=== PATIENT | female | born 1960 | race Two or more races ===

== ENCOUNTER 2024-04-24 08:49 | Outpatient (REF) | payer MEDICAID, SELFPAY ==
[2024-04-24 10:20] LABS: MANUAL DIFF FLAG NO
[2024-04-24 11:20] LABS: Basophils Absolute Auto 0.1 X10*3/uL (0.0-0.2); Basophils Percent Auto 0.8 % (0-2); Eosinophils Absolute Auto 1.2 X10*3/uL (0.0-0.4); Eosinophils Percent Auto 12.2 % (0-4); Hematocrit 42.5 % (37.0-47.0); Hemoglobin 13.8 g/dl (12.0-16.0); Imm Gran Abs Auto 0.02 X10*3/uL (0.00-0.03); Imm Gran Pct Auto 0.2 % (0.0-0.4); Lymphocytes Absolute Auto 3.2 X10*3/uL (1.2-4.9); Lymphocytes Percent Auto 32.2 % (20-40); Mean Corpuscular HGB Conc 32.5 g/dl (31.0-35.0); Mean Corpuscular Hemoglobin 29.9 pg (27.0-33.0); Mean Platelet Volume 11.7 fL (9.4-12.3); Monocytes Absolute Auto 0.9 X10*3/uL (0.1-1.2); Monocytes Percent Auto 9.6 % (2-11); Neutrophils Absolute Auto 4.4 x10*3/uL (2.0-8.3); Platelet Count 237 X10*3/uL (160-400); Red Blood Count 4.62 X10*6/uL (4.20-5.50); Red Cell Distribution Width 12.3 % (11.0-16.0); White Blood Count 9.8 X10*3/uL (4.8-10.8)
[2024-04-24 11:48] LABS: Alanine Aminotransferase 27 U/L (0-31); Aspartate Amino Transferase 21 U/L (5-31); Estimated Glomerular Filt Rate > 60
[2024-04-24 11:53] LABS: Erythrocyte Sedimentation Rate 6 MM/HR (0-20)
[2024-04-24 12:12] LABS: HBc Num1 0.34 S/CO (0.00-0.79); Hepatitis B Core Antibody Nonreactive (Nonreactive); Hepatitis B Surface Antigen Negative (Negative); ~HepC Num1 0.23 S/CO (0.00-0.79); ~Hepatitis B Surface Antibody NONREACTIVE (Nonreactive); ~Hepatitis C Antibody Nonreactive (Nonreactive)
[2024-04-26 16:23] LABS: Cyclic Citrullinated Peptide 180 UNITS
[2024-04-27 21:34] LABS: TS Negative Control Passed; TS Panel A 0; TS Panel B 0; TS Positive Control Passed; TSpotTB Negative (Negative)
== END 2024-04-24 08:50 | disposition home or self-care (01) ==
LOC: HO.LAB 08:49
PROVIDERS: PCP Student in an Organized Health Care Education/Training Program; Visit Provider Internal Medicine Rheumatology
DX: M06.9 Rheumatoid arthritis, unspecified (principal); Z79.60 Long term (current) use of unspecified immunomodulators and immunosuppressants; R06.9 Unspecified abnormalities of breathing; M79.7 Fibromyalgia
CPT/HCPCS: 36415; 82565; 84450; 84460; 85025; 85652; 86140; 86200; 86481; 86704; 86706; 86803; 87340; 99212

== ENCOUNTER 2024-04-24 08:49 | Outpatient (AMB) | payer MEDICAID, SELFPAY ==
[2024-04-24 08:56] VITALS: BP 150/80; PULSE 86; O2SAT 97; BMI 35.3
--- NOTE | 2024-04-24 08:56 | MHC.OFFVIS ---
Vital Signs 04/24/24 08:56 Height 5 ft 2 in Weight 193 lb 1.999 oz BMI 35.3 BP 150/80 H Blood Pressure Location Lt brachial Position Sitting Pulse 86 Pulse Source Pulse Oximeter Pulse Oximetry (%) 97 Oxygen Delivery Method Room Air Intake Visit Reasons: Athritis/CM APT Intake Note: Patient presents for follow up on rheumatoid arthritis in her whole body. Email Marketing Intern Services: Email Marketing Intern Offered & Declined Email Marketing Intern Name: Car Accompanied by: Grand Child Allergies IV contrast Allergy (Mild, Uncoded 04/24/24 09:02) acidosis HPI HPI Athritis/CM APT: Details: [place] speaking patient. Granddaughter present to interpret. Insomnia due to all over body pain. Hands and toes are getting stuck. She continues to take meloxicam 7.5 mg daily and gabapentin 100 mg t.i.d.. She has been on gabapentin for years without increased dose. She continues to take Humira every other week for rheumatoid arthritis. [facility] Medical History (Updated 04/24/24 @ 09:44 by Héctor Reina MD) Chronic GERD Legally blind Asthma Rheumatoid arthritis Surgical History (Updated 04/24/24 @ 09:07 by Betzy Herrera CMA) H/O knee surgery Family History (Updated 04/24/24 @ 09:08 by Betzy Herrera CMA) Mother Cardiovascular disease Father Pulmonary emphysema Social History (Updated 04/24/24 @ 09:09 by Betzy Herrera CMA) Alcohol intake: never Patient Tobacco Use Status: Never used Tobacco Review of Systems Const All systems reviewed & are unremarkable except as noted in HPI and below Physical Exam Vital Signs: Last Vital Signs Pulse 86 04/24/24 08:56 BP 150/80 H 04/24/24 08:56 Pulse Ox 97 04/24/24 08:56 Oxygen Delivery Method Room Air 04/24/24 08:56 BMI result Body Mass Index 35.3 Const Other: General: Comfortable CVS: RRR Respiratory: clear to auscultation bilaterally. Good respiratory effort Skin: No lesions seen MSK: Tender to palpate all small joints in hands and feet. No synovitis. She has diffuse allodynia of all her extremities. Assessment & Plan Assessment & Plan (1) Rheumatoid arthritis: Comment: On Humira. Pain from fibromyalgia is main contributor to her pain rather than inflammatory arthritis. I have asked her to contact PCP to up titrate gabapentin as she tolerates it. Code(s): M06.9 - Rheumatoid arthritis, unspecified Category: Medical Plan: Continue Humira 40 mg subcutaneous injection every other week Labs for disease and drug monitoring on high-risk medication ordered PCP follow-up for fibromyalgia management. Consider up titration of gabapentin as she tolerates. 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: Code(s): Z79.899 - Other vermin exterminator (current) drug therapy Category: Medical Plan: See above (3) Fibromyalgia: Code(s): M79.7 - Fibromyalgia Category: Medical Plan: See above Orders: Orders Complete Blood Count Auto Diff Today Z79.60 - [facility] (current) use of unspecified immunomodulators and immunosuppressants Erythrocyte Sedimentation Rate Today M06.9 - Rheumatoid arthritis, unspecified Hepatitis B,C Profile Today M06.9 - Rheumatoid arthritis, unspecified T Spot TB Today M06.9 - Rheumatoid arthritis, unspecified Alanine Aminotransferase Today Z79.60 - 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 continuity of treatment 2 ea 2RF Coding Level of Care Code Est Pt Level 4 (97160) Complex EM visit Add On G2211 Diagnoses Rheumatoid arthritis M06.9 Other alf (current) drug therapy Z79.899 Fibromyalgia M79.7
== END 2024-04-24 09:37 | disposition home or self-care (01) ==
PROVIDERS: PCP Student in an Organized Health Care Education/Training Program; Visit Provider Internal Medicine Rheumatology
DX: M06.9 Rheumatoid arthritis, unspecified (principal); Z79.899 Other long term (current) drug therapy; M79.7 Fibromyalgia
CPT/HCPCS: 99214

== ENCOUNTER 2024-05-30 08:41 | Outpatient (AMB) | payer MEDICAID, SELFPAY ==
[2024-05-30 08:50] VITALS: BP 148/80; PULSE 100; O2SAT 97; BMI 35.8
--- NOTE | 2024-05-30 08:50 | A.OFFVIS_ITS ---
Vital Signs 05/30/24 08:50 Height 5 ft 2 in Weight 196 lb BMI 35.8 BP 148/80 H Blood Pressure Location Lt brachial Position Sitting Pulse 100 Pulse Source Pulse Oximeter Pulse Oximetry (%) 97 Oxygen Delivery Method Room Air Intake Visit Reasons: Follow up 1mo Intake Note: Patient presents today for follow up on RA, She is requesting Meloxicam and Trazadone refills. Her hands and hips are bothering her today. Allergies IV contrast Allergy (Mild, Uncoded 05/30/24 08:54) acidosis HPI HPI Follow up 1mo: Details: She continues to have pain. PCP increase gabapentin to 200 mg 3 times a day. She feel sleepy during the day and naps. She does not sleep well at night. She watches TV until she falls asleep. PENDING SALE TO [facility] Medical History (Updated 05/30/24 @ 09:44 by Héctor Reina MD) Chronic GERD Legally blind Asthma Rheumatoid arthritis Surgical History (Updated 04/24/24 @ 09:07 by Betzy Herrera CMA) H/O knee surgery Family History (Updated 04/24/24 @ 09:08 by Betzy Herrera CMA) Mother Cardiovascular disease Father Pulmonary emphysema Social History (Updated 04/24/24 @ 09:09 by Betzy Herrera CMA) Alcohol intake: never Patient Tobacco Use Status: Never used Tobacco Review of Systems Const All systems reviewed & are unremarkable except as noted in HPI and below Physical Exam Vital Signs: Last Vital Signs Pulse 100 05/30/24 08:50 BP 148/80 H 05/30/24 08:50 Pulse Ox 97 05/30/24 08:50 Oxygen Delivery Method Room Air 05/30/24 08:50 BMI result Body Mass Index 35.8 Const Other: General: Comfortable CVS: RRR Respiratory: clear to auscultation bilaterally. Good respiratory effort Skin: No lesions seen MSK: Tender to palpate all small joints in hands and feet. No synovitis. She has diffuse allodynia of all her extremities. Results Reviewed Results Reviewed: Recent labs reviewed from 05/04/2024. Assessment & Plan Assessment & Plan (1) Rheumatoid arthritis: Comment: On Humira. She continues to have arthralgias and myalgias. Fibromyalgia is uncontrolled contributing to myalgia. Recent labs did not reveal elevated inflammatory markers but she continues to have diffuse arthralgias. I will increased frequency of Humira as she gets relief with pain after Humira inje ction for at least a week suggesting pain from inflammatory arthritis is responding but she does not have complete response lasting full 2 weeks before next injection is due. Code(s): M06.9 - Rheumatoid arthritis, unspecified Category: Medical Plan: Change Humira 40 mg subcutaneous injection every other week to weekly. I will request update to PA. PCP follow-up for fibromyalgia management. Consider up titration of gabapentin as she tolerates with consideration of increasing gabapentin to 300 mg twice a day. 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 Insomnia has contributing. Code(s): M79.7 - Fibromyalgia Category: Medical Plan: See above We discussed sleep hygiene. Recommended trying aquatic therapy PCP follow-up for further management of fibromyalgia Medications: New meloxicam Increase dose 15 mg PO DAILY 30 tabs 2RF Changed From adalimumab (Humira(CF) Pen) (0.4 mL) 40 mg subcutaneously; PA needed. continuity of treatment 2 ea 2RF To adalimumab (Humira(CF) Pen) (0.4 mL) 40 mg subcutaneously; PA needed for weekly dosing. Continuity of treatment 4 ea 2RF Coding Level of Care Code Est Pt Level 4 (13719) Complex EM visit Add On G2211 Diagnoses Rheumatoid arthritis M06.9 Other halfway (current) drug therapy Z79.899 Fibromyalgia M79.7
== END 2024-05-30 09:41 | disposition home or self-care (01) ==
PROVIDERS: PCP Student in an Organized Health Care Education/Training Program; Visit Provider Internal Medicine Rheumatology
DX: M06.9 Rheumatoid arthritis, unspecified (principal); Z79.899 Other long term (current) drug therapy; M79.7 Fibromyalgia
CPT/HCPCS: 99214

== ENCOUNTER → 2024-05-30 08:41 | Outpatient (BNVA) | payer MEDICAID, SELFPAY | PROVIDERS: PCP Student in an Organized Health Care Education/Training Program; Visit Provider Internal Medicine Rheumatology | DX: M06.9 Rheumatoid arthritis, unspecified (principal); M79.7 Fibromyalgia; Z79.899 Other long term (current) drug therapy | CPT/HCPCS: 99212 ==

== ENCOUNTER 2024-08-08 11:19 | Outpatient (REF) | payer MEDICAID, SELFPAY ==
[2024-08-08 11:45] LABS: MANUAL DIFF FLAG NO
[2024-08-08 12:07] LABS: Basophils Absolute Auto 0.1 X10*3/uL (0.0-0.2); Basophils Percent Auto 0.9 % (0-2); Eosinophils Absolute Auto 1.5 X10*3/uL (0.0-0.4); Hemoglobin 13.9 g/dl (12.0-16.0); Imm Gran Abs Auto 0.04 X10*3/uL (0.00-0.03); Imm Gran Pct Auto 0.4 % (0.0-0.4); Lymphocytes Absolute Auto 3.4 X10*3/uL (1.2-4.9); Lymphocytes Percent Auto 35.6 % (20-40); Mean Corpuscular HGB Conc 32.3 g/dl (31.0-35.0); Mean Corpuscular Hemoglobin 29.5 pg (27.0-33.0); Mean Corpuscular Volume 91.3 fL (80.0-98.0); Mean Platelet Volume 11.8 fL (9.4-12.3); Monocytes Absolute Auto 0.9 X10*3/uL (0.1-1.2); Monocytes Percent Auto 9.2 % (2-11); Neutrophils Absolute Auto 3.6 x10*3/uL (2.0-8.3); Neutrophils Percent Auto 37.9 % (45-73); Platelet Count 237 X10*3/uL (160-400); Red Blood Count 4.71 X10*6/uL (4.20-5.50); Red Cell Distribution Width 12.4 % (11.0-16.0); White Blood Count 9.4 X10*3/uL (4.8-10.8)
[2024-08-08 12:29] LABS: Alanine Aminotransferase 33 U/L (0-31); Aspartate Amino Transferase 30 U/L (5-31); Estimated Glomerular Filt Rate > 60
[2024-08-08 12:44] LABS: Erythrocyte Sedimentation Rate 7 MM/HR (0-20)
[2024-08-09 16:38] LABS: CRP High Sensitivity 3.3 mg/L
== END 2024-08-08 11:20 | disposition home or self-care (01) ==
LOC: HO.LAB 11:19
PROVIDERS: PCP Student in an Organized Health Care Education/Training Program; Visit Provider Internal Medicine Rheumatology
DX: M06.9 Rheumatoid arthritis, unspecified (principal)
CPT/HCPCS: 36415; 82565; 84450; 84460; 85025; 85652; 86141

== ENCOUNTER 2024-08-23 13:07 | Outpatient (AMB) | payer MEDICAID, SELFPAY ==
--- NOTE | 2024-08-23 13:15 | A.OFFVIS_ITS ---
Vital Signs 08/23/24 13:19 Height 5 ft 2 in Weight 193 lb 9.054 oz BMI 35.4 BP 140/70 H Blood Pressure Location Rt brachial Position Sitting Pulse 74 Pulse Source Pulse Oximeter Pulse Oximetry (%) 99 Oxygen Delivery Method Room Air Intake Visit Reasons: 3 mnts f/u Intake Note: Patient presents today for follow up on RA. Accompanied by: Son Allergies IV contrast Allergy (Mild, Uncoded 05/30/24 08:54) acidosis HPI HPI 3 mnts f/u: Details: Son interprets. Italian speaking patient. She did not start humira weekly. She is still taking it every other week. She has been out of prescription for a week. She is now on medicare and requires a new PA. She has good days and bad days. She has hand and foot pain. Gabapentin dose increased by PCP without change in pain. She went to hospital recently for back pain. SHe has home PT for back strengthening. ON LICENSE OF [facility] Medical History Chronic GERD Legally blind Asthma Rheumatoid arthritis Surgical History (Updated 04/24/24 @ 09:07 by Betzy Herrera CMA) H/O knee surgery Family History (Updated 04/24/24 @ 09:08 by Betzy Herrera CMA) Mother Cardiovascular disease Father Pulmonary emphysema Social History (Updated 04/24/24 @ 09:09 by Betzy Herrera CMA) Alcohol intake: never Patient Tobacco Use Status: Never used Tobacco Review of Systems Const All systems reviewed & are unremarkable except as noted in HPI and below Physical Exam Vital Signs: Last Vital Signs Pulse 74 08/23/24 13:19 BP 140/70 H 08/23/24 13:19 Pulse Ox 99 08/23/24 13:19 Oxygen Delivery Method Room Air 08/23/24 13:19 BMI result Body Mass Index 35.4 Const Other: General: Comfortable CVS: RRR Respiratory: clear to auscultation bilaterally. Good respiratory effort Skin: No lesions seen MSK: Right wrist synovitis present. Tender right wrists. Tender to palpate all small joints in hands and feet. Shoulder abduction is 160 degrees bilateral with normal internal rotation but limited full external rotation. Normal range of motion of lower extremities. She has diffuse allodynia of all her extremities. Assessment & Plan Assessment & Plan (1) Rheumatoid arthritis: Comment: Uncontrolled inflammatory arthritis on Humira every other week. Fibromyalgia is also uncontrolled contributing to myalgias. Recent labs reveal mild transaminitis. Rheumatology history: +CPP >250, rheumatoid factor. Erosive inflammatory arthritis involving left foot 1st distal phalanx. MTX 11/2020-02/2022 patient discontinued due to hair loss. Partial response to sulfasalazine and hydroxychloroquine 04/2022. On Humira 2020- Code(s): M06.9 - Rheumatoid arthritis, unspecified Category: Medical Plan: Change Humira 40 mg subcutaneous injection every other week to weekly. Prednisone course prescribed Avoid alcohol and Tylenol. I will be checking labs at follow up appointment PCP follow-up for fibromyalgia management. Consider up titration of gabapentin as she tolerates. 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 Code(s): M79.7 - Fibromyalgia Category: Medical Plan: See above PCP follow-up for further management of fibromyalgia (4) Transaminitis: Code(s): R74.01 - Elevation of levels of liver transaminase levels Category: Medical Plan: See above Medications: New prednisone Take 4 tablets daily 5 days, 3 tablets daily 5 days, 2 tablets daily 5 days, 1 tablet daily 5 days then stop. Take prednisone with food. 5 mg PO DIRECTED 50 tabs 0RF Coding Level of Care Code Est Pt Level 4 (22566) Complex EM visit Add On G2211 Diagnoses Rheumatoid arthritis M06.9 Other nursing home (current) drug therapy Z79.899 Fibromyalgia M79.7 Transaminitis R74.01
[2024-08-23 13:19] VITALS: BP 140/70; PULSE 74; O2SAT 99; BMI 35.4
--- OUTSIDE RECORDS SUMMARY | 2024-08-23 15:50 | XMS_ITS | Clinical Summary ---
Author Organization Unknown Care Team Providers [facility] Locker Room Attendant Name Role Phone BERNARDA ANNE Unavailable Unavailable SHEKHAR RN, ADMISSION NURSE, ASHLI Unavail able Unavailable YANNICK ([facility]) C - PT, IRENA Unavailable Unavailable TSERING RN, NATTY Unavailable Unavailable Payers Payer Name Policy Type Policy Number Effective Date Expira tion Date MEDICARE - [facility]/MS - PD [id number] Problems Condition Name Condition Details Condition Category Status Onset Date Resolution Date Last Treatment Date Treating Clinician Comments SPONDYLOSIS W/O MYELOPATHY OR RADICULOPATH Y, LUMBAR REGION Active 05-16 00:00: 00 RHEUMATOID ARTHRITIS, UNSPECIFIED Active 05-16 00:00: 00 CHRONIC PAIN SYNDROME Active 05-16 00:00: 00 UNSPECIFIED ASTHMA, UNCOMPLICATE D Active 05-16 00:00: 00 ESSENTIAL (PRIMARY) HYPERTENSION Active 05-16 00:00: 00 FIBROMYALGIA Active 05-16 00:00: 00 HYPERLIPIDEM IA, UNSPECIFIED Active 05-16 00:00: 00 UNSPECIFIED OSTEOARTHRIT IS, UNSPECIFIED SITE Active 05-16 00:00: 00 [facility] (CURRENT) USE OF NON-STEROIDA L NON-INFLAM (NSAID) Active 05-16 00:00: 00 [facility] (CURRENT) USE OF OPIATE ANALGESIC Active 05-16 00:00: 00 PERSONAL HISTORY OF NICOTINE DEPENDENCE Active 05-16 00:00: 00 Allergies, Adverse Reactions, Alerts Allergy Name Allergy Type Status Severity Reaction(s) Onset Date Inactive Date Treating Clinician Comments IODINE CONTRAST DYE Propensity to adverse reactions Active 2024-07 14:28:2 8 Medications Ordered Medication Name Filled Medication Name Start Date Stop Date Current Medication? Ordering Clinician Indication Dosage Frequency Signature (SIG) Comments Components gabapentin 400 mg capsule - 00:00: 00 07-16 00:00 :00 No [id number] Per instruc tions Per instructio ns (route: oral) Med Classific ation: Central Nervous System Agents oxycodone 5 mg tablet - 00:00: 00 07-16 00:00 :00 No [id number] Per instruc tions Per instructio ns (route: oral) Med Classific ation: Analgesic , Anti-infl ammatory or Antipyret ic gabapentin 100 mg capsule 07-04 00:00: 00 07-16 00:00 :00 No [id number] Per instruc tions Per instructio ns (route: oral) Med Classific ation: Central Nervous System Agents lisinopril 20 mg tablet 07-04 00:00: 00 07-16 00:00 :00 No [id number] Per instruc tions Per instructio ns (route: oral) Med Classific ation: Cardiovas cular Therapy Agents meloxicam 15 mg tablet 07-04 00:00: 00 07-16 00:00 :00 No [id number] Per instruc tions Per instructio ns (route: oral) Med Classific ation: Analgesic , Anti-infl ammatory or Antipyret ic omeprazole 20 mg capsule,del ayed release 07-04 00:00: 00 07-16 00:00 :00 No [id number] Per instruc tions Per instructio ns (route: oral) Med Classific ation: Gastroint estinal Therapy Agents simvastatin 5 mg tablet 07-04 00:00: 00 07-16 00:00 :00 No [id number] Per instruc tions Per instructio ns (route: oral) Med Classific ation: Cardiovas cular Therapy Agents Ventolin HFA 90 mcg/actuati on aerosol inhaler 07-04 00:00: 00 07-16 00:00 :00 No [id number] Per instruc tions Per instructio ns (route: inhalation ) Med Classific ation: Respirato ry Therapy Agents fluticasone propionate 50 mcg/actuati on nasal spray,suspe nsion 2- 00:00: 00 Yes [id number] Per instruc tions O2 - PRN Per instructio ns O2 - PRN (route: nasal) Med Classific ation: Respirato ry Therapy Agents Humira(CF) Pen 40 mg/0.4 mL subcutaneou s kit 2- 00:00: 00 07-16 00:00 :00 No [id number] Per instruc tions Per instructio ns (route: subcutaneo us) Med Classific ation: Analgesic , Anti-infl ammatory or Antipyret ic acetaminoph en 500 mg tablet 07-16 00:00: 00 Yes [id number] for mild-mod pain 2 tablet EVERY 8 HOURS 2 tablet EVERY 8 HOURS (route: oral) Med Classific ation: Analgesic , Anti-infl ammatory or Antipyret ic albuterol sulfate HFA 90 mcg/actuati on aerosol inhaler 07-16 00:00: 00 Yes [id number] for SOB 2 puff EVERY 4 HOURS 2 puff EVERY 4 HOURS (route: inhalation ) Med Classific ation: Respirato ry Therapy Agents gabapentin 400 mg capsule 07-16 00:00: 00 Yes [id number] 1 capsule 3 TIMES DAILY 1 capsule 3 TIMES DAILY (route: oral) Med Classific ation: Central Nervous System Agents Humira(CF) Pen 40 mg/0.4 mL subcutaneou s kit 07-16 00:00: 00 Yes [id number] 40 mg EVERY OTHER WEEK 40 mg EVERY OTHER WEEK (route: subcutaneo us) Med Classific ation: Analgesic , Anti-infl ammatory or Antipyret ic Lidocaine Plus 4 % topical cream 07-16 00:00: 00 Yes [id number] Per instruc tions O2 - PRN Per instructio ns O2 - PRN (route: topical) Med Classific ation: Dermatolo gical lisinopril 20 mg tablet - 00:00: 00 Yes [id number] 1 tablet DAILY 1 tablet DAILY (route: oral) Med Classific ation: Cardiovas cular Therapy Agents meloxicam 15 mg tablet 07-16 00:00: 00 Yes [id number] 1 tablet DAILY 1 tablet DAILY (route: oral) Med Classific ation: Analgesic , Anti-infl ammatory or Antipyret ic Narcan 4 mg/actuatio n nasal spray 07-16 00:00: 00 Yes [id number] Per instruc tions O2 - PRN Per instructio ns O2 - PRN (route: nasal) Med Classific ation: Antidotes and other Reversal Agents omeprazole 20 mg capsule,del ayed release 07-16 00:00: 00 Yes [id number] 1 capsule DAILY 1 capsule DAILY (route: oral) Med Classific ation: Gastroint estinal Therapy Agents oxycodone 5 mg tablet 07-16 00:00: 00 Yes [id number] 1 tablet EVERY 6 HOURS 1 tablet EVERY 6 HOURS (route: oral) Med Classific ation: Analgesic , Anti-infl ammatory or Antipyret ic Senna Plus 8.6 mg-50 mg capsule 07-16 00:00: 00 Yes [id number] 2 capsule BEDTIME 2 capsule BEDTIME (route: oral) Med Classific ation: Gastroint estinal Therapy Agents simvastatin 5 mg tablet 07-16 00:00: 00 Yes [id number] 1 tablet BEDTIME 1 tablet BEDTIME (route: oral) Med Classific ation: Cardiovas cular Therapy Agents Immunizations Ordered Immunization Name Filled Immunization Name Date Status Comments Refusal Reason INFLUENZA, TIV (INACTIVATED) 2024-02-15 00:00:00 Vital Signs Vital Name Observation Time Observation Value Commen ts Temperature 2024-08-22 14:23:00.000 97.6 [degF] Temperature 2024-08-15 11:38:00.000 98.4 [degF] Temperature 2024-08-14 13:55:00.000 98.1 [degF] Temperature 2024-08-07 15:21:00.000 97.4 [degF] Temperature 2024-08-06 10:53:00.000 99.9 [degF] Temperature 2024-08-02 14:51:00.000 97.4 [degF] Temperature 2024-07-30 15:59:00.000 97.7 [degF] Temperature 2024-07-26 12:46:00.000 97.6 [degF] Temperature 2024-07-24 15:06:00.000 97.9 [degF] Temperature 2024-07-20 11:11:00.000 98.2 [degF] Temperature 2024-07-16 14:29:00.000 98 [degF] BMI (%) 2024-07-16 14:29:00.000 34 kg/m2 Height 2024-07-16 14:29:00.000 62 [in_us] Pulse 2024-08-22 14:23:00.000 78 /min Pulse 2024-08-15 11:38:00.000 72 /min Pulse 2024-08-07 15:21:00.000 72 /min Pulse 2024-08-06 10:53:00.000 75 /min Pulse 2024-08-02 14:51:00.000 82 /min Pulse 2024-07-30 15:59:00.000 72 /min Pulse 2024-07-26 12:46:00.000 65 /min Pulse 2024-07-24 15:06:00.000 66 /min Pulse 2024-07-20 11:11:00.000 72 /min Pulse 2024-07-16 14:29:00.000 76 /min O2 Saturation (%) 2024-08-15 11:38:00.000 96 % O2 Saturation (%) 2024-08-14 13:55:00.000 98 % O2 Saturation (%) 2024-08-07 15:21:00.000 99 % O2 Saturation (%) 2024-08-06 10:53:00.000 98 % O2 Saturation (%) 2024-08-02 14:51:00.000 96 % O2 Saturation (%) 2024-07-30 15:59:00.000 97 % O2 Saturation (%) 2024-07-26 12:46:00.000 98 % O2 Saturation (%) 2024-07-24 15:06:00.000 98 % O2 Saturation (%) 2024-07-16 14:29:00.000 95 % Respirations 2024-08-22 14:23:00.000 14 /min Respirations 2024-08-15 11:38:00.000 18 /min Respirations 2024-08-14 13:55:00.000 18 /min Respirations 2024-08-07 15:21:00.000 18 /min Respirations 2024-08-06 10:53:00.000 12 /min Respirations 2024-08-02 14:51:00.000 16 /min Respirations 2024-07-30 15:59:00.000 18 /min Respirations 2024-07-26 12:46:00.000 18 /min Respirations 2024-07-24 15:06:00.000 18 /min Respirations 2024-07-20 11:11:00.000 18 /min Respirations 2024-07-16 14:29:00.000 18 /min Weight (lbs) 2024-07-16 14:29:00.000 190 [lb_av] Systolic Blood Pressure 2024-08-22 14:23:00.000 140 mm [Hg] Systolic Blood Pressure 2024-08-15 11:38:00.000 140 mm [Hg] Systolic Blood Pressure 2024-08-14 13:55:00.000 124 mm [Hg] Systolic Blood Pressure 2024-08-07 15:21:00.000 148 mm [Hg] Systolic Blood Pressure 2024-08-06 10:53:00.000 169 mm [Hg] Systolic Blood Pressure 2024-08-02 14:51:00.000 124 mm [Hg] Systolic Blood Pressure 2024-07-30 15:59:00.000 110 mm [Hg] Systolic Blood Pressure 2024-07-26 12:46:00.000 140 mm [Hg] Systolic Blood Pressure 2024-07-24 15:06:00.000 146 mm [Hg] Systolic Blood Pressure 2024-07-20 11:11:00.000 146 mm [Hg] Systolic Blood Pressure 2024-07-16 14:29:00.000 148 mm [Hg] Diastolic Blood Pressure 2024-08-22 14:23:00.000 82 mm [Hg] Diastolic Blood Pressure 2024-08-15 11:38:00.000 80 mm [Hg] Diastolic Blood Pressure 2024-08-14 13:55:00.000 64 mm [Hg] Diastolic Blood Pressure 2024-08-07 15:21:00.000 70 mm [Hg] Diastolic Blood Pressure 2024-08-06 10:53:00.000 91 mm [Hg] Diastolic Blood Pressure 2024-08-02 14:51:00.000 76 mm [Hg] Diastolic Blood Pressure 2024-07-30 15:59:00.000 72 mm [Hg] Diastolic Blood Pressure 2024-07-26 12:46:00.000 68 mm [Hg] Diastolic Blood Pressure 2024-07-24 15:06:00.000 70 mm [Hg] Diastolic Blood Pressure 2024-07-20 11:11:00.000 76 mm [Hg] Diastolic Blood Pressure 2024-07-16 14:29:00.000 82 mm [Hg] Plan of Treatment Planned Activity Planned Date Details Comments Future Scheduled Test SKILLED NU RSE TO EVALUATE PATIENT, IDENTIFY PRIMARY AND CO-MORBID CONDITIONS CODED PER CODING GUIDELINES, AND DEVELOP PATIENT SPECIFIC PLAN OF CARE THAT INCLUDES PATIENT GOAL FOR HOME HEALTH. [code = SKILLED NURSE TO EVALUATE PATIENT, IDENTIFY PRIMARY AND CO-MORBID CONDITIONS CODED PER CODING GUIDELINES, AND DEVELOP PATIENT SPECIFIC PLAN OF CARE THAT INCLUDES PATIENT GOAL FOR HOME HEALTH.] Future Scheduled Test SKILLED NU RSE TO REVIEW PATIENT MEDICATIONS. INSTRUCT PATIENT/CAREGIVER ON MONITORING OF EFFECTIVENESS, ADVERSE DRUG REACTIONS, SIDE EFFECTS OF ALL MEDICATIONS (PRESCRIPTION/-OTC), AND HOW AND WHEN TO REPORT PROBLEMS. [code = SKILLED NURSE TO REVIEW PATIENT MEDICATIONS. INSTRUCT PATIENT/CAREGIVER ON MONITORING OF EFFECTIVENESS, ADVERSE DRUG REACTIONS, SIDE EFFECTS OF ALL MEDICATIONS (PRESCRIPTION/-OTC), AND HOW AND WHEN TO REPORT PROBLEMS.] Future Scheduled Test SKILLED NU RSE FOR O/A OF RESPIRATORY SYSTEM TO IDENTIFY CHANGES ASSOCIATED WITH EXACERBATION AND TO PROVIDE SKILLED TEACHING ON MANAGEMENT OF ASTHMA RESPIRATORY DISEASE PROCESS. [code = SKILLED NURSE FOR O/A OF RESPIRATORY SYSTEM TO IDENTIFY CHANGES ASSOCIATED WITH EXACERBATION AND TO PROVIDE SKILLED TEACHING ON MANAGEMENT OF ASTHMA RESPIRATORY DISEASE PROCESS.] Future Scheduled Test SKILLED NU RSE FOR O/A OF MUSCULOSKELETAL STATUS AND TEACHING ON MEASURES TO MANAGE LUMBAR SPINE OA AND TO MAINTAIN SAFETY WITH ACTIVITY [code = SKILLED NURSE FOR O/A OF MUSCULOSKELETAL STATUS AND TEACHING ON MEASURES TO MANAGE LUMBAR SPINE OA AND TO MAINTAIN SAFETY WITH ACTIVITY] Future Scheduled Test SKILLED NU RSE FOR O/A TO IDENTIFY CHANGES ASSOCIATED WITH PARAPLEGIA, RLE WEAKNESS, FIBROMIALGIA AND PROVIDE INSTRUCTION RELATED TO SAFETY MEASURES TO PREVENT INJURY SECONDARY TO IMPAIRED NEUROLOGICAL STATUS. SKILLED NURSE TO REPORT SIGNIFICANT CHANGES OF NEUROLOGIC STATUS TO PHYSICIAN FOR EARLY INTERVENTION. [code = SKILLED NURSE FOR O/A TO IDENTIFY CHANGES ASSOCIATED WITH PARAPLEGIA, RLE WEAKNESS, FIBROMIALGIA AND PROVIDE INSTRUCTION RELATED TO SAFETY MEASURES TO PREVENT INJURY SECONDARY TO IMPAIRED NEUROLOGICAL STATUS. SKILLED NURSE TO REPORT SIGNIFICANT CHANGES OF NEUROLOGIC STATUS TO PHYSICIAN FOR EARLY INTERVENTION.] Future Scheduled Test PHYSICAL T HERAPIST TO EVALUATE PATIENT FOR MUSCLE STRENGTHENING [code = PHYSICAL THERAPIST TO EVALUATE PATIENT FOR MUSCLE STRENGTHENING ] Future Scheduled Test SKILLED NU RSE TO PROVIDE TEACHING ON SIGNS AND SYMPTOMS AND MANAGEMENT OF HYPERTENSION. [code = SKILLED NURSE TO PROVIDE TEACHING ON SIGNS AND SYMPTOMS AND MANAGEMENT OF HYPERTENSION.] Future Scheduled Test SKILLED NU RSE FOR O/A AND SKILLED TEACHING RELATED TO SIGNS AND SYMPTOMS AND MANAGEMENT OF ARTHRITIS [code = SKILLED NURSE FOR O/A AND SKILLED TEACHING RELATED TO SIGNS AND SYMPTOMS AND MANAGEMENT OF ARTHRITIS ] Future Scheduled Test SKILLED NU RSE FOR O/A AND SKILLED TEACHING RELATED TO SIGNS AND SYMPTOMS AND MANAGEMENT OF RA. [code = SKILLED NURSE FOR O/A AND SKILLED TEACHING RELATED TO SIGNS AND SYMPTOMS AND MANAGEMENT OF RA.] Future Scheduled Test PATIENT VAZQUEZ S A RISK OF HOSPITALIZATION AND ED USE. SKILLED NURSE TO ESTABLISH SUPPORT MEASURES TO MINIMIZE RISK OF HOSPITALIZATION AND ED USE, AND INSTRUCT PATIENT/CAREGIVER ON METHODS TO REDUCE AVOIDABLE HOSPITALIZATION AND ED USE. [code = PATIENT HAS A RISK OF HOSPITALIZATION AND ED USE. SKILLED NURSE TO ESTABLISH SUPPORT MEASURES TO MINIMIZE RISK OF HOSPITALIZATION AND ED USE, AND INSTRUCT PATIENT/CAREGIVER ON METHODS TO REDUCE AVOIDABLE HOSPITALIZATION AND ED USE.] Future Scheduled Test SKILLED NU RSE TO PROVIDE INSTRUCTION TO PATIENT/CAREGIVER RELATED TO DISCHARGE PLANNING. [code = SKILLED NURSE TO PROVIDE INSTRUCTION TO PATIENT/CAREGIVER RELATED TO DISCHARGE PLANNING.] Future Scheduled Test SKILLED NU RSE TO PERFORM ENVIRONMENTAL SAFETY RISK ASSESSMENT AND FALL RISK ASSESSMENT AND PROVIDE INSTRUCTION TO IMPLEMENT ENVIRONMENTAL SAFETY AND FALL PREVENTION STRATEGIES THROUGHOUT THE CERTIFICATION PERIOD. SKILLED NURSE WILL MAINTAIN SITUATIONAL AWARENESS AND WILL NOTIFY CLINICAL MANAGEMENT NURSE RN AND PHYSICIAN/PROVIDER WITH ANY CHANGE IN CONDITION. [code = SKILLED NURSE TO PERFORM ENVIRONMENTAL SAFETY RISK ASSESSMENT AND FALL RISK ASSESSMENT AND PROVIDE INSTRUCTION TO IMPLEMENT ENVIRONMENTAL SAFETY AND FALL PREVENTION STRATEGIES THROUGHOUT THE CERTIFICATION PERIOD. SKILLED NURSE WILL MAINTAIN SITUATIONAL AWARENESS AND WILL NOTIFY CLINICAL MANAGEMENT NURSE RN AND PHYSICIAN/PROVIDER WITH ANY CHANGE IN CONDITION.] Future Scheduled Test SKILLED NU RSE FOR OBSERVATION AND ASSESSMENT OF PATIENTS PAIN LEVEL AND EFFECTIVENESS OF PAIN MANAGEMENT REGIMEN. SKILLED NURSE TO INSTRUCT PATIENT/CAREGIVER REGARDING PHARMACOLOGIC AND NON-PHARMACOLOGIC PAIN CONTROL MEASURES. SKILLED NURSE TO REPORT TO PHYSICIAN IF PAIN IS UNCONTROLLED WITH CURRENT PAIN MANAGEMENT REGIMEN. [code = SKILLED NURSE FOR OBSERVATION AND ASSESSMENT OF PATIENTS PAIN LEVEL AND EFFECTIVENESS OF PAIN MANAGEMENT REGIMEN. SKILLED NURSE TO INSTRUCT PATIENT/CAREGIVER REGARDING PHARMACOLOGIC AND NON-PHARMACOLOGIC PAIN CONTROL MEASURES. SKILLED NURSE TO REPORT TO PHYSICIAN IF PAIN IS UNCONTROLLED WITH CURRENT PAIN MANAGEMENT REGIMEN.] Future Scheduled Test SKILLED NU RSE TO ASSESS PATIENT'S SKIN INTEGRITY AND INSTRUCT PATIENT/CAREGIVER ON MEASURES TO PREVENT PRESSURE ULCERS. [code = SKILLED NURSE TO ASSESS PATIENT'S SKIN INTEGRITY AND INSTRUCT PATIENT/CAREGIVER ON MEASURES TO PREVENT PRESSURE ULCERS.] Future Scheduled Test PHYSICAL T HERAPIST TO EVALUATE PATIENT SECONDARY TO FUNCTIONAL DEFICITS/SAFETY CONCERNS. THIS 64-YEAR-OLD FEMALE IS REFERRED TO PT DUE TO SEVERE LBP AND DECREASED MOBILITY. PATIENT WITH RECENT HOSP STAY DUE TO INTRACTABLE LBP TUESDAY AFTERNOON 07/07 AND D/C'D HOME 07/08. ALL FILMS NEGATIVE FOR ANY ACUTE CHANGES IN SPINE- BELIEVED TO BE FLARE UP OF FIBROMYALGIA. WHEN I WENT, PAIN WAS LIKE A 20 OUT OF 10. NOW 6/10 ACROSS LOW BACK. PATIENT LYING INCLINED ON BED. PATIENT GIVEN OXYCODONE FOR PAIN (HAS USED IN PAST) FOR 5 DAYS. I FEEL BETTER BUT NOT GOOD. SINCE HOME, NO FALLS, NO CHANGE IN MEDS/MED INS. PATIENT MEDICAL HISTORY SIGNIFICANT FOR: ASTHMA, HYPERLIPIDEMIA, LUMBAR SPINE OA, CHRONIC PAIN SYNDROME, FIBROMYALGIA (PER PATIENT, DIAGNOSED 3 MONTHS AGO), RA, SLEEP APNEA, LEGALLY BLIND BOTH EYES- SEES SHADOWS, H/O LEFT KNEE MENISCAL SURGERY. PATIENT LIVES IN 1 BEDROOM APT WITH SIGN OTHER WHO IS PATIENT'S PANTRY WORKER AND SMALL DOG WITH ENTRY STEPS AND RAILING TO SIDEWALK LEVEL. PATGIENT A+OX4 AND IS CONTINENT OF BOWEL AND BLADDER. LYING/SITTING/WALKING TOO LONG INCREASES LBP. MOVING LEGS WORSENS PAIN. MEDICINE DOES NOT HELP MUCH. STAYS MOST OF DAY IN BED SINCE HOME. PRIOR TO HOSP, THINGS WERE DIFFICULT BUT MOVED MORE AND ADLS MUCH EASIER. PATIENT HAS A LOT OF SUPPORTIVE FAMILY LIVING NEAR BY. PATIENT STANDS 5'2 AND WEIGHS 193LB. VITALS TODAY: TEMP- 98.2, L RAD PULSE- 72 REG, RESP RATE- 18, L BRACH BP- 146/76. CURRENTLY GETTING HELP FOR DRESSING AND ADLS AND LIMITED FUNCTIONAL MOBILITY DUE TO PAIN. SLEEP AFFECTED AND CONTINUES TO USE CPAP MACHINE. PATIENT WITH C/O INCREASED SHARP PAIN INCLINE TO B/S SITTING AND HIGH LEVEL OF MATTRESS SO UNABLE TO SIT B/S. PATIENT UNABLE TO TOLERATE MANUAL MUSCLE TESTING OF HIPS/LE'S BUT OBSERVED TODAY TO BE ABLE TO SUPPORT WT. STANDING AND WALKING. PATIENT INSTRUCTED IN FINDING 'LUMBAR NEUTRAL' PATIENT WITH INCREASED LUMBAR LORDOSIS AND POOR CORE CONTROL. REPOSITIONING OUT OF END RANGE LORDOSIS MORE COMFORTABLE AT LB. AMB IN BEDROOM REACHING FOR FURNITURE AND DECREASED TOLERANCE TO STANDING TODAY. PATIENT ASSISTED TO RETURN TO BED AND SHOWN TO GET IN/OUT OF BED FROM HOOKLYING POSITION TO DECREASE STRAIN ON LB. ALSO SHOWN SMALL RANGE PELVIC TILTS TO MOVE OUT OF LORDOTIC POSITION. PATIENT PILLOWS REARRANGED TO CREATE WEDGE FOR IMPROVED TRUNK/LUMB POSITION AND PATIENT MORE COMF AND PILLOW UNDER KNEES TO DECREASE LORDOTIC POSITIONING. PATIENT INSTRUCTED TO INCREASE TIME OUT OF BED AND AMB SHORT DISTANCES EVERY HOUR. PATIENT RECEPTIVE TO PT INSTRUCTION. PATIENT WILL BENEFIT FROM SKILLED PT INTERVENTION 1-2X/WK FOR TRAINING IN GAIT, TRANSFERS, STAIR MGT, BALANCE, FUNCTIONAL STRENGTHENING/ENDURANCE, PAIN MGT, ROM, EDUCATION AND HEP. PATIENT IN AGREEMENT WITH PT POC. OFFICE OF BERNARDA RIVAS NP NOTIFIED OF PT EVALUATION AND POC. PHYSICAL THERAPY TO ESTABLISH /UPGRADE/DOWNGRADE THERAPEUTIC EXERCISE PROGRAM AND INSTRUCT PATIENT/CAREGIVER ON EXERCISE PRECAUTIONS WITH WRITTEN HOME PROGRAM. MAY INCLUDE AROM, RROM APPROPRIATE TO IMPROVE FUNCTIONAL STRENGTH AND RANGE OF MOTION. PHYSICAL THERAPY TO INSTRUCT PATIENT/CAREGIVER ON BED MOBILITY TECHNIQUES TO IMPROVE PATIENT MOBILITY AND POSITIONING TECHNIQUES IN ORDER TO INCREASE PATIENTS COMFORT AND DECREASE RISK OF SKIN BREAKDOWN. PHYSICAL THERAPY TO INSTRUCT PATIENT/CAREGIVER ON SAFE TRANSFER TECHNIQUES USING PROPER BODY MECHANICS AND EQUIPMENT. PHYSICAL THERAPY TO INSTRUCT PATIENT/CAREGIVER ON GAIT TRAINING TECHNIQUES USING APPROPRIATE ASSISTIVE DEVICE, PROPER BODY MECHANICS TO IMPROVE MOBILITY, AND PREVENT INJURY OF PATIENT AND/OR CAREGIVER. PHYSICAL THERAPY TO ASSESS AND RECOMMEND HOME SAFETY ADAPTATIONS AND EDUCATE PATIENT /CAREGIVER ON FALL PREVENTION STRATEGIES. PHYSICAL THERAPY FOR OBSERVATION AND ASSESSMENT OF PAIN, EFFECTIVENESS OF PAIN MANAGEMENT REGIMEN AND SKILLED TEACHING RELATED TO PAIN MANAGEMENT. THERAPIST TO REPORT INCREASED PAIN LEVEL TO PHYSICIAN FOR PROMPT INTERVENTION. [code = PHYSICAL THERAPIST TO EVALUATE PATIENT SECONDARY TO FUNCTIONAL DEFICITS/SAFETY CONCERNS. THIS 64-YEAR-OLD FEMALE IS REFERRED TO PT DUE TO SEVERE LBP AND DECREASED MOBILITY. PATIENT WITH RECENT HOSP STAY DUE TO INTRACTABLE LBP SATURDAY AFTERNOON 07/07 AND D/C'D HOME 07/08. ALL FILMS NEGATIVE FOR ANY ACUTE CHANGES IN SPINE- BELIEVED TO BE FLARE UP OF FIBROMYALGIA. WHEN I WENT, PAIN WAS LIKE A 20 OUT OF 10. NOW 6/10 ACROSS LOW BACK. PATIENT LYING INCLINED ON BED. PATIENT GIVEN OXYCODONE FOR PAIN (HAS USED IN PAST) FOR 5 DAYS. I FEEL BETTER BUT NOT GOOD. SINCE HOME, NO FALLS, NO CHANGE IN MEDS/MED INS. PATIENT MEDICAL HISTORY SIGNIFICANT FOR: ASTHMA, HYPERLIPIDEMIA, LUMBAR SPINE OA, CHRONIC PAIN SYNDROME, FIBROMYALGIA (PER PATIENT, DIAGNOSED 3 MONTHS AGO), RA, SLEEP APNEA, LEGALLY BLIND BOTH EYES- SEES SHADOWS, H/O LEFT KNEE MENISCAL SURGERY. PATIENT LIVES IN 1 BEDROOM APT WITH SIGN OTHER WHO IS PATIENT'S PANTRY WORKER AND SMALL DOG WITH ENTRY STEPS AND RAILING TO SIDEWALK LEVEL. PATGIENT A+OX4 AND IS CONTINENT OF BOWEL AND BLADDER. LYING/SITTING/WALKING TOO LONG INCREASES LBP. MOVING LEGS WORSENS PAIN. MEDICINE DOES NOT HELP MUCH. STAYS MOST OF DAY IN BED SINCE HOME. PRIOR TO HOSP, THINGS WERE DIFFICULT BUT MOVED MORE AND ADLS MUCH EASIER. PATIENT HAS A LOT OF SUPPORTIVE FAMILY LIVING NEAR BY. PATIENT STANDS 5'2 AND WEIGHS 193LB. VITALS TODAY: TEMP- 98.2, L RAD PULSE- 72 REG, RESP RATE- 18, L BRACH BP- 146/76. CURRENTLY GETTING HELP FOR DRESSING AND ADLS AND LIMITED FUNCTIONAL MOBILITY DUE TO PAIN. SLEEP AFFECTED AND CONTINUES TO USE CPAP MACHINE. PATIENT WITH C/O INCREASED SHARP PAIN INCLINE TO B/S SITTING AND HIGH LEVEL OF MATTRESS SO UNABLE TO SIT B/S. PATIENT UNABLE TO TOLERATE MANUAL MUSCLE TESTING OF HIPS/LE'S BUT OBSERVED TODAY TO BE ABLE TO SUPPORT WT. STANDING AND WALKING. PATIENT INSTRUCTED IN FINDING 'LUMBAR NEUTRAL' PATIENT WITH INCREASED LUMBAR LORDOSIS AND POOR CORE CONTROL. REPOSITIONING OUT OF END RANGE LORDOSIS MORE COMFORTABLE AT LB. AMB IN BEDROOM REACHING FOR FURNITURE AND DECREASED TOLERANCE TO STANDING TODAY. PATIENT ASSISTED TO RETURN TO BED AND SHOWN TO GET IN/OUT OF BED FROM HOOKLYING POSITION TO DECREASE STRAIN ON LB. ALSO SHOWN SMALL RANGE PELVIC TILTS TO MOVE OUT OF LORDOTIC POSITION. PATIENT PILLOWS REARRANGED TO CREATE WEDGE FOR IMPROVED TRUNK/LUMB POSITION AND PATIENT MORE COMF AND PILLOW UNDER KNEES TO DECREASE LORDOTIC POSITIONING. PATIENT INSTRUCTED TO INCREASE TIME OUT OF BED AND AMB SHORT DISTANCES EVERY HOUR. PATIENT RECEPTIVE TO PT INSTRUCTION. PATIENT WILL BENEFIT FROM SKILLED PT INTERVENTION 1-2X/WK FOR TRAINING IN GAIT, TRANSFERS, STAIR MGT, BALANCE, FUNCTIONAL STRENGTHENING/ENDURANCE, PAIN MGT, ROM, EDUCATION AND HEP. PATIENT IN AGREEMENT WITH PT POC. OFFICE OF BERNARDA RIVAS NP NOTIFIED OF PT EVALUATION AND POC. PHYSICAL THERAPY TO ESTABLISH /UPGRADE/DOWNGRADE THERAPEUTIC EXERCISE PROGRAM AND INSTRUCT PATIENT/CAREGIVER ON EXERCISE PRECAUTIONS WITH WRITTEN HOME PROGRAM. MAY INCLUDE AROM, RROM APPROPRIATE TO IMPROVE FUNCTIONAL STRENGTH AND RANGE OF MOTION. PHYSICAL THERAPY TO INSTRUCT PATIENT/CAREGIVER ON BED MOBILITY TECHNIQUES TO IMPROVE PATIENT MOBILITY AND POSITIONING TECHNIQUES IN ORDER TO INCREASE PATIENTS COMFORT AND DECREASE RISK OF SKIN BREAKDOWN. PHYSICAL THERAPY TO INSTRUCT PATIENT/CAREGIVER ON SAFE TRANSFER TECHNIQUES USING PROPER BODY MECHANICS AND EQUIPMENT. PHYSICAL THERAPY TO INSTRUCT PATIENT/CAREGIVER ON GAIT TRAINING TECHNIQUES USING APPROPRIATE ASSISTIVE DEVICE, PROPER BODY MECHANICS TO IMPROVE MOBILITY, AND PREVENT INJURY OF PATIENT AND/OR CAREGIVER. PHYSICAL THERAPY TO ASSESS AND RECOMMEND HOME SAFETY ADAPTATIONS AND EDUCATE PATIENT /CAREGIVER ON FALL PREVENTION STRATEGIES. PHYSICAL THERAPY FOR OBSERVATION AND ASSESSMENT OF PAIN, EFFECTIVENESS OF PAIN MANAGEMENT REGIMEN AND SKILLED TEACHING RELATED TO PAIN MANAGEMENT. THERAPIST TO REPORT INCREASED PAIN LEVEL TO PHYSICIAN FOR PROMPT INTERVENTION.] Goal 2024-08-22 Patient Goal - TO BE ABLE TO MANAGE PAIN Goal Provider Goal - A PLAN OF CARE WILL BE ESTABLISHED THAT MEETS PATIENT'S SNF NEEDS AND INCLUDES PATIENT GOAL FOR HOME HEALTH. Goal Provider Goal - PATIENT/CAREGIVER WILL VERBALIZE UNDERSTANDING OF EDUCATION PROVIDED ON MEDICATIONS BY THE END OF THE CERTIFICATION PERIOD. Goal Provider Goal - PATIENT/CAREGIVER WILL VERBALIZE/DEMONSTRATE MANAGEMENT OF ASTHMA RESPIRATORY DISEASE PROCESS. CHANGES IN RESPIRATORY STATUS WILL BE IDENTIFIED AND REPORTED TO PHYSICIAN FOR PROMPT INTERVENTION THROUGHOUT THE CERTIFICATION PERIOD. Goal Provider Goal - PATIENT/CAREGIVER WILL VERBALIZE/DEMONSTRATE ABILITY TO MANAGE MUSCULOSKELETAL DISEASE WHILE MAINTAINING SAFETY THROUGHOUT THE EPISODE. Goal Provider Goal - CHANGES IN NEUROLOGIC STATUS WILL BE IDENTIFIED AND REPORTED TO THE PHYSICIAN FOR PROMPT INTERVENTION OF ASSOCIATED RISK. PATIENT/CAREGIVER WILL VERBALIZE/DEMONSTRATE APPROPRIATE SAFETY MEASURES TO PREVENT INJURY BY THE END OF THE CERTIFICATION PERIOD. Goal Provider Goal - A PHYSICAL THERAPY EVALUATION TO BE COMPLETED WITH RECOMMENDATIONS AND/OR WRITTEN PLAN OF TREATMENT ESTABLISHED FOR PHYSICIANS SIGNATURE. Goal Provider Goal - PATIENT/CAREGIVER WILL VERBALIZE SIGNS AND SYMPTOMS OF HYPERTENSION AND WILL BE ABLE TO DEMONSTRATE ABILITY TO MANAGE EXACERBATION BY END OF THE EPISODE. Goal Provider Goal - PATIENT/CAREGIVER WILL VERBALIZE UNDERSTANDING OF ARTHRITIS MUSCULOSKELETAL DISEASE INCLUDING SIGNS AND SYMPTOMS, MANAGEMENT, AND PRESCRIBED TREATMENT REGIMEN BY END OF EPISODE. Goal Provider Goal - PATIENT/CAREGIVER WILL VERBALIZE UNDERSTANDING OF AUTOIMMUNE DISEASE INCLUDING SIGNS AND SYMPTOMS, MANAGEMENT OF COMPLICATIONS, AND PRESCRIBED TREATMENT REGIMEN BY END OF EPISODE. Goal Provider Goal - PATIENT WILL HAVE SUPPORT MEASURES ESTABLISHED TO PREVENT HOSPITALIZATION AND ED USE AND PATIENT/CAREGIVER WILL VERBALIZE/DEMONSTRATE METHODS TO REDUCE AVOIDABLE HOSPITALIZATION AND ED USE BY END OF EPISODE. Goal Provider Goal - PATIENT/CAREGIVER WILL VERBALIZE UNDERSTANDING OF DISCHARGE PLANNING INSTRUCTIONS BY DATE OF DISCHARGE. Goal Provider Goal - PATIENT/CAREGIVER WILL VERBALIZE/DEMONSTRATE EFFECTIVE ENVIRONMENTAL SAFETY AND FALL PREVENTION STRATEGIES, WILL REMAIN SAFE IN THE COMMUNITY, AND WILL BE FREE OF DANGER TO SELF AND OTHERS THROUGHOUT THE CERTIFICATION PERIOD. Goal Provider Goal - PATIENT/CAREGIVER WILL DEMONSTRATE UNDERSTANDING OF PHARMACOLOGIC AND NONPHARMACOLOGIC PAIN CONTROL MEASURES AND PATIENT WILL HAVE IMPROVEMENT IN PAIN INTERFERING WITH ACTIVITY EVIDENCED BY PAIN CONTROLLED AT LEVEL OF 7 OR LESS BY END OF CERTIFICATION PERIOD. Goal Provider Goal - PATIENT/CAREGIVER WILL VERBALIZE UNDERSTANDING OF PRESSURE ULCER PREVENTION BY END OF THE EPISODE. Goal Provider Goal - PHYSICAL THERAPY EVALUATION TO BE COMPLETED WITH RECOMMENDATIONS AND/OR WRITTEN TREATMENT PLAN OF CARE ESTABLISHED FOR THE PHYSICIANS SIGNATURE PATIENT/CAREGIVER WILL PERFORM THERAPEUTIC EXERCISE/S AND DEMONSTRATE PARTICIPATION IN A HOME PROGRAM TO IMPROVE FUNCTIONAL STRENGTH/ENDURANCE OF SEBASTIAN HIPS/LE'S/CORE TO IMPROVE GAIT, TRANSFERS, STAIR MGT, BALANCE, PAIN, FALLS PREVENTION PATIENT/CAREGIVER WILL DEMONSTRATE IMPROVED BED MOBILITY TECHNIQUES TO DECREASE PAIN AND PROMOTE INDEPENDENCE PATIENT/CAREGIVER WILL DEMONSTRATE SAFE TRANSFERS USING APPROPRIATE ASSISTIVE DEVICE, BODY MECHANICS AND EQUIPMENT TO IMPROVE GAIT, BALANCE, STAIR MGT, FALLS PREVENTION, PAIN MGT PATIENT/CAREGIVER WILL DEMONSTRATE IMPROVED GAIT TECHNIQUES TO MINIMIZE RISK OF INJURY TO IMPROVE ACCESS TO ALL AREAS OF HOME, STAIR MGT, TRANSFERS AND COMMUNITY ACCESS PATIENT/CAREGIVER WILL DEMONSTRATE/VERBALIZE UNDERSTANDING OF RECOMMENDATIONS TO INCREASE SAFETY IN THE HOME AND FALL PREVENTION. INCREASED PAIN OR INEFFECTIVE PAIN CONTROL MEASURES WILL BE IDENTIFIED AND PROMPTLY REPORTED TO THE PHYSICIAN. PATIENT/CAREGIVER WILL DEMONSTRATE EFFECTIVE PAIN MANAGEMENT TO IMPROVE TOLERANCE TO GAIT, TRANSFERS, BED MOB, STAIR MGT, BALANCE. Reason for Visit INDEPENDENT IN THE HOME Encounters Start Date/Time End Date/Time Encounter Type Admission Type Attending [facility] Care Department Encounter ID Discharge Date Discharge Status Discharge Condition Discharge Reason Percent Goals Met 2024-07-16 00:00:00 2024-08-22 00:00:00 Outpatient NEW ADMISSION NATTY CAGLE [facility] [id number] 2024-08-22 00:00:00 DISCHARGE TO HOME OR SELF CARE INDEPENDEN T IN THE HOME GOALS MET ( ONLY) 100.00
--- OUTSIDE RECORDS SUMMARY | 2024-08-23 15:50 | XMS_ITS | Clinical Summary ---
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 NON-STEROIDA L NON-INFLAM (NSAID) Active 05-16 00:00: 00 [facility] (CURRENT) USE OF OPIATE ANALGESIC Active 05-16 [...] - 00:00: 00 07-16 00:00 :00 No [id number] Per instruc tions Per instructio ns (route: oral) Med Classific ation: Central Nervous System Agents oxycodone 5 mg tablet - 00:00: 00 07-16 00:00 :00 No [id number] Per instruc tions Per instructio ns (route: oral) Med Classific ation: Analgesic , Anti-infl ammatory or Antipyret ic gabapentin 100 mg capsule 07-04 00:00: 00 07-16 00:00 :00 No [id number] Per instruc tions Per instructio ns (route: oral) Med Classific ation: Central Nervous System Agents lisinopril 20 mg tablet 07-04 00:00: 00 07-16 00:00 :00 No [id number] Per instruc tions Per instructio ns (route: oral) Med Classific ation: Cardiovas cular Therapy Agents meloxicam 15 mg tablet 07-04 00:00: 00 07-16 00:00 :00 No [id number] Per instruc tions Per instructio ns (route: oral) Med Classific ation: Analgesic , Anti-infl ammatory or Antipyret ic omeprazole 20 mg capsule,del ayed release 07-04 00:00: 00 07-16 00:00 :00 No [id number] Per instruc tions Per instructio ns (route: oral) Med Classific ation: Gastroint estinal Therapy Agents simvastatin 5 mg tablet 07-04 00:00: 00 07-16 00:00 :00 No [id number] Per instruc tions Per instructio ns (route: oral) Med Classific ation: Cardiovas cular Therapy Agents Ventolin HFA 90 mcg/actuati on aerosol inhaler 07-04 00:00: 00 07-16 00:00 :00 No [id number] Per instruc tions Per instructio ns (route: inhalation ) Med Classific ation: Respirato ry Therapy Agents fluticasone propionate 50 mcg/actuati on nasal spray,suspe nsion 2- 00:00: 00 Yes [id number] Per instruc tions O2 - PRN Per instructio ns O2 - PRN (route: nasal) Med Classific ation: Respirato ry Therapy Agents Humira(CF) Pen 40 mg/0.4 mL subcutaneou s kit 2- 00:00: 00 07-16 00:00 :00 No [id number] Per instruc tions Per instructio ns (route: subcutaneo us) Med Classific ation: Analgesic , Anti-infl ammatory or Antipyret ic acetaminoph en 500 mg tablet 07-16 00:00: 00 Yes [id number] for mild-mod pain 2 tablet EVERY 8 HOURS 2 tablet EVERY 8 HOURS (route: oral) Med Classific ation: Analgesic , Anti-infl ammatory or Antipyret ic albuterol sulfate HFA 90 mcg/actuati on aerosol inhaler 07-16 00:00: 00 Yes [id number] for SOB 2 puff EVERY 4 HOURS 2 puff EVERY 4 HOURS (route: inhalation ) Med Classific ation: Respirato ry Therapy Agents gabapentin 400 mg capsule 07-16 00:00: 00 Yes [id number] 1 capsule 3 TIMES DAILY 1 capsule 3 TIMES DAILY (route: oral) Med Classific ation: Central Nervous System Agents Humira(CF) Pen 40 mg/0.4 mL subcutaneou s kit 07-16 00:00: 00 Yes [id number] 40 mg EVERY OTHER WEEK 40 mg EVERY OTHER WEEK (route: subcutaneo us) Med Classific ation: Analgesic , Anti-infl ammatory or Antipyret ic Lidocaine Plus 4 % topical cream 07-16 00:00: 00 Yes [id number] Per instruc tions O2 - PRN Per instructio ns O2 - PRN (route: topical) Med Classific ation: Dermatolo gical lisinopril 20 mg tablet - 00:00: 00 Yes [id number] 1 tablet DAILY 1 tablet DAILY (route: oral) Med Classific ation: Cardiovas cular Therapy Agents meloxicam 15 mg tablet 07-16 00:00: 00 Yes [id number] 1 tablet DAILY 1 tablet DAILY (route: oral) Med Classific ation: Analgesic , Anti-infl ammatory or Antipyret ic Narcan 4 mg/actuatio n nasal spray 07-16 00:00: 00 Yes [id number] Per instruc tions O2 - PRN Per instructio ns O2 - PRN (route: nasal) Med Classific ation: Antidotes and other Reversal Agents omeprazole 20 mg capsule,del ayed release 07-16 00:00: 00 Yes [id number] 1 capsule DAILY 1 capsule DAILY (route: oral) Med Classific ation: Gastroint estinal Therapy Agents oxycodone 5 mg tablet 07-16 00:00: 00 Yes [id number] 1 tablet EVERY 6 HOURS 1 tablet EVERY 6 HOURS (route: oral) Med Classific ation: Analgesic , Anti-infl ammatory or Antipyret ic Senna Plus 8.6 mg-50 mg capsule 07-16 00:00: 00 Yes [id number] 2 capsule BEDTIME 2 capsule BEDTIME (route: oral) Med Classific ation: Gastroint estinal Therapy Agents simvastatin 5 mg tablet 07-16 00:00: 00 Yes [id number] 1 tablet BEDTIME 1 tablet BEDTIME (route: [...] MAINTAIN SITUATIONAL AWARENESS AND WILL NOTIFY CLINICAL SOLAR PV INSTALLER AND PHYSICIAN/PROVIDER WITH ANY CHANGE IN CONDITION. [code = SKILLED NURSE TO PERFORM ENVIRONMENTAL SAFETY RISK ASSESSMENT AND FALL RISK ASSESSMENT AND PROVIDE INSTRUCTION TO IMPLEMENT ENVIRONMENTAL SAFETY AND FALL PREVENTION STRATEGIES THROUGHOUT THE CERTIFICATION PERIOD. SKILLED NURSE WILL MAINTAIN SITUATIONAL AWARENESS AND WILL NOTIFY CLINICAL SOLAR PV INSTALLER AND PHYSICIAN/PROVIDER WITH ANY CHANGE IN CONDITION.] [...] APT WITH SIGN OTHER WHO IS PATIENT'S TOLL BRIDGE ATTENDANT AND SMALL DOG WITH ENTRY STEPS AND [...] APT WITH SIGN OTHER WHO IS PATIENT'S TOLL BRIDGE ATTENDANT AND SMALL DOG WITH ENTRY STEPS AND [...] CARE WILL BE ESTABLISHED THAT MEETS PATIENT'S SHELTER NEEDS AND INCLUDES PATIENT GOAL FOR HOME [...] End Date/Time Encounter Type Admission Type Attending [facility] Care Department Encounter ID Discharge Date Discharge Status Discharge Condition Discharge Reason Percent Goals Met 2024-07-16 00:00:00 2024-08-22 00:00:00 Outpatient NEW ADMISSION NATTY CAGLE [facility] [id number] 2024-08-22 00:00:00 DISCHARGE TO HOME OR SELF CARE INDEPENDEN T IN THE HOME GOALS MET ( ONLY) 100.00
--- OUTSIDE RECORDS SUMMARY | 2024-08-23 15:50 | XMS_ITS | Clinical Summary ---
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 5 Active Ventolin HFA 90 mcg/actuation inhaler Inhale 2 puffs by mouth every 4 (four) hours if needed for wheezing or shortness of breath. 5 Active lisinopriL (PRINIVIL,ZESTR IL) 20 mg tablet Take 1 tablet (20 mg total) by mouth 1 (one) time each day. 4 Active meloxicam (MOBIC) 15 mg tablet Take 1 tablet (15 mg total) by mouth 1 (one) time each day. 5 Active omeprazole (PriLOSEC) [address] capsule Take 1 capsule (20 mg total) by mouth 1 (one) time each day. 5 Active simvastatin (ZOCOR) 5 mg tablet Take 1 tablet (5 mg total) by mouth at bedtime. 4 Active gabapentin (NEURONTIN) 400 mg capsule Take 1 capsule (400 mg total) by mouth 3 (three) times a day. 90 each 11 5 07/16/19 26 Active senna-docusate (PERICOLACE) 8.6-50 mg per tablet Take 2 tablets by mouth at bedtime. Hold 1 dose if 2 or more bowel movements within prior 24 hours. 60 each 5 07/16/19 26 Active oxyCODONE (ROXICODONE) 5 mg immediate release tablet Take 1 tablet (5 mg total) by mouth every 6 (six) hours if needed for severe pain. Max Daily Amount: 20 mg 12 tablet 5 Active naloxone (NARCAN) 4 mg/0.1 mL nasal sprayIndication s:opioid overdose,opioid -induced respiratory depression Administer 1 each (4 mg total) into affected nostril(s) if needed for opioid reversal or respiratory depression. Give 4 mg (1 spray) into one nostril. May repeat every 2-3 minutes if needed, alternating nostrils, until medical assistance becomes available. 2 each 5 07/16/19 26 Active lidocaine (LMX) 4 % cream Apply topically 4 (four) times a day if needed for mild pain (Apply to low back for any degree of pain.). 60 g 5 08/15/19 25 Active Problems Problem Noted Date Diagnosed Date Low back pain 07/14/2024 Encounters Date Type Department Care Team Description 07/14/2024 4:59 PM EST - 07/15/2024 4:16 PM EST Emergency [facility] [address] [place] [id number] Rios Kelly MD Jones, Christopher, MD Santoyo-Pacheco, Omar D, MD Intractable low back pain (Primary Dx); Acute midline low back pain without sciatica; Acute bilateral low back pain without sciatica [place] [facility] [place] Medical History Medical History Date Comments Rheumatoid aortitis Hypertension Asthma Fibromyalgia Social History Tobacco Use Types Packs/Day Years Used Date Smoking Tobacco: Former Cigarettes Smokeless Tobacco: Never Tobacco Cessation:Counseling Given: Not Answered Interpersonal Safety Answer Date Record ed Physical Abuse 07/14/2024 Verbal Abuse 07/14/2024 Comments Unknown Sex and Gender Information Value Date Recorded Sex Assigned at Female 07/14/2024 4:43 PM EST Legal Sex Female 12:23 AM EST Gender Identity Female 07/14/2024 4:43 PM EST Sexual Orientation Straight 07/14/2024 5: 07 PM EST Obstetrics History Last Filed Vital Signs Vital Sign Reading Time Taken Comments Blood Pressure 155/88 07/15/2024 8:20 AM EST Pulse 77 07/15/2024 8:20 AM EST Temperature 35.5 ??C (95.9 ??F) 07/15/2024 8:20 AM ES T Respiratory Rate 16 07/15/2024 8:20 AM EST Oxygen Saturation 98% 07/15/2024 8:20 AM EST Inhaled Oxygen Concentration - - Weight 89.8 kg (198 lb) 07/14/2024 8:59 PM EST Height 157.5 cm (5' 2.01 ) 07/14/2024 8:59 PM ES T Body Mass Index 36.21 07/14/2024 8:59 PM EST Plan of Treatment Health Maintenance Due Date Last Done Comments Breast Cancer Screening 1960 Cervical Cancer Screening: Pap Smear 1980 RSV Immunization Adult Patients (1 - Risk 60-74 years 1-dose series) 2019 COVID-19 Vaccine (3 - Moderna risk series) 09/18/2020 08/21/2020, 07/25/2020 Colorectal Cancer Screening: Colonoscopy 04/18/2022 Hepatitis C Screening 04/18/2022 Medicare Annual Wellness Visit 04/18/2022 Osteoporosis Screening (Bone Density Screening) 04/18/2022 Social Influencers of Health Screening 04/18/2022 Zoster Vaccines (2 of 2) 04/22/2023 02/25/2023 Pneumococcal Vaccine: 50+ Years (2 of 2 - PCV) 02/26/2024 02/25/2023 Pneumococcal Vaccine: Pediatrics (0 to 5 Years) and At-Risk Patients (6 to 64 Years) (2 of 2 - PCV) 02/26/2024 02/25/2023 Influenza Vaccine (Season Ended) 2025 Depression Screening 06/19/2025 06/19/2024 Falls Risk Assessment 07/15/2025 07/15/2024 Hypertension/CHF/CAD Annual BMP Blood Test 07/15/2025 07/15/2024, 07/14/2024, 04/28/2024 Cholesterol Screening (Lipid Panel) 04/28/2029 04/28/2024, 04/28/2024, 02/25/2023, Additional history exists DTaP,Tdap,and Td Vaccines (2 - Td or Tdap) 02/21/2030 02/22/2020 HIB Vaccines Aged Out No longer eligi ble based on patient's age to complete this topic HPV Vaccines Aged Out No longer eligi ble based on patient's age to complete this topic Hepatitis A Vaccines Aged Out No long er eligible based on patient's age to complete this topic Hepatitis B Vaccines Aged Out No long er eligible based on patient's age to complete this topic IPV Vaccines Aged Out No longer eligi ble based on patient's age to complete this topic MMR Vaccines Aged Out No longer eligi ble based on patient's age to complete this topic Meningococcal ACWY Vaccine Aged Out N o longer eligible based on patient's age to complete this topic Meningococcal B Vaccine Aged Out No l onger eligible based on patient's age to complete this topic RSV Immunization Patients Under 20 months Aged Out No longer eligible based on patient's age to complete this topic Varicella Vaccines Aged Out No longer eligible based on patient's age to complete this topic Procedures Procedure Name Priority Date/Time Associated Diagnosis Comments MR LUMBAR SPINE WO CONTRAST STAT 07/15/2024 10:19 AM EST CBC WITH AUTO DIFFERENTIAL Routine 07/15/2024 6:54 AM EST SEDIMENTATION RATE Routine 07/15/2024 6: 54 AM EST CBC AND DIFFERENTIAL Routine 07/15/2024 6:54 AM EST BASIC METABOLIC PANEL Routine 07/15/2024 6:54 AM EST HEPATIC FUNCTION PANEL Add-On 07/14/2024 7:18 PM EST THYROID STIMULATING HORMONE Add-On 07/14/2024 7:18 PM EST CREATINE KINASE AND CKMB Add-On 07/14/2024 7:18 PM EST C-REACTIVE PROTEIN STAT Add-on 07/14/2024 7: 18 PM EST SEDIMENTATION RATE STAT Add-on 07/14/2024 7: 18 PM EST CBC WITH AUTO DIFFERENTIAL STAT 07/14/2024 7:18 PM EST CBC AND DIFFERENTIAL STAT 07/14/2024 7:18 PM EST BASIC METABOLIC PANEL STAT 07/14/2024 7:18 PM EST XR LUMBAR SPINE 2-3 VIEWS STAT 07/14/2024 6:36 PM EST SALCEDO URINE CULTURE TUBE STAT 07/14/2024 5:45 PM EST URINALYSIS WITH REFLEX MICROSCOPIC AND CULTURE STAT 07/14/2024 5:45 PM EST URINALYSIS WITH REFLEX MICROSCOPIC AND CULTURE STAT 07/14/2024 5:45 PM EST from Last 3 Months Results * MR Lumbar Spine wo Contrast (07/15/2024 10:19 AM EST) Anatomical Region Laterality Modality L-spine, Spine Magnetic Resonan ce 07/15/2024 10:4 0 AM EST Impressions 07/15/2024 10:49 AM EST Lower lumbar predominant degenerative disc and facet changes without significant foraminal or spinal canal stenosis. -------- FINAL REPORT -------- Dictated By: MARGO LOJA Dictated Date: 07/15/2024 10:40 ET Assigned Physician: MARGO LOAJ Reviewed and Electronically Signed By: MARGO LOJA Signed Date: 07/15/2024 10:49 ET Workstation ID: [id number] Transcribed By: Self Edit Transcribed Date: 07/15/2024 10:40 ET Narrative 07/15/2024 10:49 AM EST PROCEDURE: Lumbar spine MRI INDICATION: Pain TECHNIQUE: Multiplanar, multisequence MRI of the Lumbar spine Without contrast. COMPARISON: ??No priors available. FINDINGS: Lumbar lordosis is preserved. No fracture or suspicious marrow replacing lesion. Mild degenerative loss of normal disc height and signal at L5-S1. Mild lower lumbar predominant facet arthritis. Conus medullaris is normal and terminates at L1-2. ??No epidural collection or mass is seen within the spinal canal. Left renal cyst. ??Paraspinal muscles are normal. Findings by level: T12-L1: No focal disc protrusion, foraminal stenosis, or spinal canal stenosis. L1-2: No focal disc protrusion, foraminal stenosis, or spinal canal stenosis. L2-3: No focal disc protrusion, foraminal stenosis, or spinal canal stenosis. L3-4: No focal disc protrusion, foraminal stenosis, or spinal canal stenosis. L4-5: No focal disc protrusion, foraminal stenosis, or spinal canal stenosis. L5-S1: Diffuse disc bulge with central annular tear and endplate spurring. ??No foraminal or spinal canal stenosis. Procedure Note Margo Loja MD - 07/15/2024 PROCEDURE: Lumbar spine MRI INDICATION: Pain TECHNIQUE: Multiplanar, multisequence MRI of the Lumbar spine Withoutcontrast. COMPARISON: No priors available. FINDINGS: Lumbar lordosis is preserved. No fracture or suspicious marrow replacing lesion. Mild degenerative loss of normal disc height and signal at L5-S1. Mild lower lumbar predominant facet arthritis. Conus medullaris is normal and terminates at L1-2. No epidural collectionor mass is seen within the spinal canal. Left renal cyst. Paraspinal muscles are normal. Findings by level: T12-L1: No focal disc protrusion, foraminal stenosis, or spinal canalstenosis. L1-2: No focal disc protrusion, foraminal stenosis, or spinal canalstenosis. L2-3: No focal disc protrusion, foraminal stenosis, or spinal canalstenosis. L3-4: No focal disc protrusion, foraminal stenosis, or spinal canalstenosis. L4-5: No focal disc protrusion, foraminal stenosis, or spinal canalstenosis. L5-S1: Diffuse disc bulge with central annular tear and endplate spurring.No foraminal or spinal canal stenosis. IMPRESSION: Lower lumbar predominant degenerative disc and facet changes withoutsignificant foraminal or spinal canal stenosis. -------- FINAL REPORT -------- Dictated By: MARGO LOJA Dictated Date: 07/15/2024 10:40 ET Assigned Physician: MARGO LOJA Reviewed and Electronically Signed By: MARGO LOJA Signed Date: 07/15/2024 10:49 ET Workstation ID: [id number] Transcribed By: Self Edit Transcribed Date: 07/15/2024 10:40 ET [facility] MRI PROCEDURES Fin al Result * (ABNORMAL) CBC auto differential (07/15/2024 6:54 AM EST) Only the most recent of2 resultswithin the time period is included. WBC 9.4 4.8 - 10.8 K/mcL LAB HEMETOLOGY METHOD 07/15/2024 7:34 AM [facility] RBC 4.50 3.80 - 4.80 M/mcL LAB HEMETOLOGY METHOD 07/15/2024 7:34 AM [facility] Hemoglobin 13.3 11.5 - 16.0 g/dL LAB HEMETOLOGY METHOD 07/15/2024 7:34 AM [facility] Hematocrit 42.4 35.0 - 47.0 % LAB HEMETOLOGY METHOD 07/15/2024 7:34 AM [facility] MCV 95.1 79.0 - 98.0 FL LAB HEMETOLOGY METHOD 07/15/2024 7:34 AM [facility] MCH 29.8 27.0 - 32.0 pcg LAB HEMETOLOGY METHOD 07/15/2024 7:34 AM [facility] MCHC 31.4(L) 32.0 - 37.0 g/dL LAB HEMETOLOGY METHOD 07/15/2024 7:34 AM [facility] RDW 12.2 11.0 - 15.0 % LAB HEMETOLOGY METHOD 07/15/2024 7:34 AM [facility] Platelets 215 130 - 400 K/mcL LAB HEMETOLOGY METHOD 07/15/2024 7:34 AM [facility] MPV 11.8(H) 7.0 - 11.0 FL LAB HEMETOLOGY METHOD 07/15/2024 7:34 AM [facility] NRBC 0.0 <1.0 % LAB HEMETOLOGY METHOD 07/15/2024 7:34 AM [facility] NRBC Absolute 0.00 <0.10 K/mcL LAB HEMETOLOGY METHOD 07/15/2024 7:34 AM [facility] Neutrophils Relative 34.3 % LAB HEMETOLOGY METHOD 07/15/2024 7:34 AM [facility] Lymphocytes Relative 38.2 % LAB HEMETOLOGY METHOD 07/15/2024 7:34 AM [facility] Monocytes Relative 9.6 % LAB HEMETOLOGY METHOD 07/15/2024 7:34 AM [facility] Eosinophils Relative 17.0 % LAB HEMETOLOGY METHOD 07/15/2024 7:34 AM [facility] Basophils Relative 0.7 % LAB HEMETOLOGY METHOD 07/15/2024 7:34 AM [facility] Immature Granulocytes Relative 0.2 % LAB HEMETOLOGY METHOD 07/15/2024 7:34 AM [facility] Neutrophils Absolute 3.21 1.50 - 7.00 K/mcL LAB HEMETOLOGY METHOD 07/15/2024 7:34 AM [facility] Lymphocytes Absolute 3.59 1.00 - 5.00 K/mcL LAB HEMETOLOGY METHOD 07/15/2024 7:34 AM [facility] Monocytes Absolute 0.90 0.20 - 1.00 K/mcL LAB HEMETOLOGY METHOD 07/15/2024 7:34 AM [facility] Eosinophils Absolute 1.60(H) 0.00 - 0.50 K/mcL LAB HEMETOLOGY METHOD 07/15/2024 7:34 AM [facility] Basophils Absolute 0.07 0.00 - 0.20 K/[facility] LAB HEMETOLOGY METHOD 07/15/2024 7:34 AM EST [facility] Immature Granulocytes Absolute 0.02 0.00 - 0.03 K/[facility] LAB HEMETOLOGY METHOD 07/15/2024 7:34 AM EST [facility] Blood Venous blood specimen / Unknown Venipuncture / Unknown 07/15/2024 6:54 AM EST 07/15/2024 7:06 AM EST Shen Mejias MD LAB BLOOD ORDERABLES Final Result Performing Organization Address [facility]/ZIP Co de Phone Number [facility] [address] [place] [address], [place] [phone] * Sedimentation rate (07/15/2024 6:54 AM EST) Only the most recent of2 resultswithin the time period is included. Sed Rate 8 0 - 30 mm/hr LAB HEMETOLOGY METHOD 07/15/2024 7:25 AM EST [facility] Blood Venous blood specimen / Unknown Venipuncture / Unknown 07/15/2024 6:54 AM EST 07/15/2024 7:06 AM EST Casey [facility]S LAB BLOOD ORDERABLES Final Res ult Performing Organization Address City/[facility]/ZIP Co de Phone Number [facility] [address] [place] [address], [place] [phone] * (ABNORMAL) Basic metabolic panel (07/15/2024 6:54 AM EST) Only the most recent of2 resultswithin the time period is included. Sodium 140 133 - 145 mmol/L LAB CHEMISTRY METHOD 07/15/2024 7:46 AM EST [facility] Potassium 4.5 3.5 - 5.5 mmol/L LAB CHEMISTRY METHOD 07/15/2024 7:46 AM [facility] Chloride 111(H) 96 - 110 mmol/L LAB CHEMISTRY METHOD 07/15/2024 7:46 AM [facility] CO2 24 21 - 32 mmol/L LAB CHEMISTRY METHOD 07/15/2024 7:46 AM [facility] Anion Gap 5 3 - 11 LAB CHEMISTRY METHOD 07/15/2024 7:46 AM [facility] Glucose 101(H) 70 - 100 mg/dL LAB CHEMISTRY METHOD 07/15/2024 7:46 AM [facility] BUN 10 5 - 25 mg/dL LAB CHEMISTRY METHOD 07/15/2024 7:46 AM [facility] Creatinine 0.59 0.50 - 1.10 mg/dL LAB CHEMISTRY METHOD 07/15/2024 7:46 AM [facility] eGFR 100 >=60 mL/min/1. 73m2 LAB CHEMISTRY METHOD 07/15/2024 7:46 AM [facility] Comment:Calculation based on the??Chronic Kidney Disease Epidemiology Collaboration (CKD-EPI) equation refit??without adjustment for race. BUN/Creatinine Ratio 16.9 LAB CHEMISTRY METHOD 07/15/2024 7:46 AM [facility] Calcium 8.7 8.5 - 10.5 mg/dL LAB CHEMISTRY METHOD 07/15/2024 7:46 AM [facility] Blood Venous blood specimen / Unknown Venipuncture / Unknown 07/15/2024 6:54 AM EST 07/15/2024 7:06 AM EST us Shen Mejias MD LAB BLOOD ORDERABLES Final Result [facility] [address] [place] [address], * (ABNORMAL) C-reactive protein (07/14/2024 7:18 PM EST) C-Reactive Protein 0.59(H) <=0.50 mg/dL LAB CHEMISTRY METHOD 07/14/2024 8:13 PM EST [facility] Blood Venous blood specimen / Unknown Venipuncture / Unknown 07/14/2024 7:18 PM EST 07/14/2024 7:30 PM EST us Shen Mejias MD LAB BLOOD ORDERABLES Final Result Performing Organization Address City/[facility]/ZIP Co de Phone Number [facility] [address] [place] [address], [place] [phone] * Thyroid stimulating hormone (07/14/2024 7:18 PM EST) [facility] TSH 1.53 0.40 - 4.00 mcIU/mL LAB CHEMISTRY METHOD 07/14/2024 8:47 PM EST [facility] Blood Venous blood specimen / Unknown Venipuncture / Unknown 07/14/2024 7:18 PM EST 07/14/2024 7:30 PM EST us Shen Mejias MD LAB BLOOD ORDERABLES Final Result Performing Organization Address City/[facility]/ZIP Co de Phone Number [facility] [address] [place] [address], [place] [phone] * Creatine kinase and CKMB (07/14/2024 7:18 PM EST) [facility] Total CK 72 22 - 269 unit/L LAB CHEMISTRY METHOD 07/14/2024 8:30 PM EST [facility] CK-MB 1.0 1.0 - 3.6 ng/mL LAB CHEMISTRY METHOD 07/14/2024 8:30 PM EST [facility] CK-MB Index 0.0 0.0 - 5.0 LAB CHEMISTRY METHOD 07/14/2024 8:30 PM EST [facility] Blood Venous blood specimen / Unknown Venipuncture / Unknown 07/14/2024 7:18 PM EST 07/14/2024 7:30 PM EST Shen Mejias MD LAB BLOOD ORDERABLES Final Result [facility] [address] [place] [address], [place] [phone] * Hepatic function panel (07/14/2024 7:18 PM EST) Total Protein 7.3 6.0 - 8.0 g/dL LAB CHEMISTRY METHOD 07/14/2024 8:34 PM EST [facility] Albumin 3.5 3.2 - 5.0 g/dL LAB CHEMISTRY METHOD 07/14/2024 8:34 PM EST [facility] Total Bilirubin 0.3 0.0 - 1.4 mg/dL LAB CHEMISTRY METHOD 07/14/2024 8:34 PM [facility] Bilirubin, Direct 0.1 0.0 - 0.3 mg/dL LAB CHEMISTRY METHOD 07/14/2024 8:34 PM EST [facility] Bilirubin, Indirect 0.2 0.0 - 1.1 mg/dL LAB CHEMISTRY METHOD 07/14/2024 8:34 PM [facility] ALT (SGPT) 35 10 - 60 unit/L LAB CHEMISTRY METHOD 07/14/2024 8:34 PM [facility] AST (SGOT) 20 10 - 42 unit/L LAB CHEMISTRY METHOD 07/14/2024 8:34 PM [facility] Alkaline Phosphatase 65 42 - 121 unit/L LAB CHEMISTRY METHOD 07/14/2024 8:34 PM [facility] Blood Venous blood specimen / Unknown Venipuncture / Unknown 07/14/2024 7:18 PM EST 07/14/2024 7:30 PM EST Shen Mejias MD LAB BLOOD ORDERABLES Final Result [facility] [address] [place] [address], * XR Lumbar Spine 2-3 Views (07/14/2024 6:36 PM EST) Anatomical Region Laterality Modality Spine, L-spine Radiographic Tabatha ging 07/15/2024 9:59 AM EST Impressions 07/15/2024 10:02 AM EST FINDINGS/IMPRESSION: Lumbar lordosis is preserved. ??No fracture. ??Mild multilevel degenerative loss of normal disc space height with endplate spurring. ??Lower lumbar predominant degenerative facet arthritis. ??Cholecystectomy clips. ??Arterial calcifications. -------- FINAL REPORT -------- Dictated By: MARGO LOJA Dictated Date: 07/15/2024 09:59 ET Assigned Physician: MARGO LOJA Reviewed and Electronically Signed By: MARGO LOJA Signed Date: 07/15/2024 10:02 ET Workstation ID: [id number] Transcribed By: Self Edit Transcribed Date: 07/15/2024 09:59 ET Narrative 07/15/2024 10:02 AM EST XR LUMBAR SPINE 2-3 VIEWS INDICATION: ??Pain TECHNIQUE: XR LUMBAR SPINE 2-3 VIEWS COMPARISON: 10/27/2021. Procedure Note Margo Loja MD - 07/15/2024 XR LUMBAR SPINE 2-3 VIEWS INDICATION: Pain TECHNIQUE: XR LUMBAR SPINE 2-3 VIEWS COMPARISON: 10/27/2021. IMPRESSION: FINDINGS/IMPRESSION: Lumbar lordosis is preserved. No fracture. Mildmultilevel degenerative loss of normal disc space height with endplatespurring. Lower lumbar predominant degenerative facet arthritis.Cholecystectomy clips. Arterial calcifications. -------- FINAL REPORT -------- Dictated By: MARGO LOJA Dictated Date: 07/15/2024 09:59 ET Assigned Physician: MARGO LOJA Reviewed and Electronically Signed By: MARGO LOJA Signed Date: 07/15/2024 10:02 ET Workstation ID: [id number] Transcribed By: Self Edit Transcribed Date: 07/15/2024 09:59 ET us Shen Mejias MD IMG XR PROCEDURES Final Res ult * Urinalysis with reflex microscopic and culture (07/14/2024 5:45 PM EST) Specific [place] Urine 1.009 1.003 - 1.030 LAB URINALYSIS - AUTOMATED METHOD 07/14/2024 6:23 PM [facility] pH, Urine 6.5 5.0 - 8.0 pH LAB URINALYSIS - AUTOMATED METHOD 07/14/2024 6:23 PM [facility] Leukocytes, Urine Negative Negative LAB URINALYSIS - AUTOMATED METHOD 07/14/2024 6:23 PM [facility] Nitrite, Urine Negative Negative LAB URINALYSIS - AUTOMATED METHOD 07/14/2024 6:23 PM [facility] Protein, Urine Negative <=Trace mg/dL LAB URINALYSIS - AUTOMATED METHOD 07/14/2024 6:23 PM [facility] Glucose, Urine Negative Negative mg/dL LAB URINALYSIS - AUTOMATED METHOD 07/14/2024 6:23 PM [facility] Ketones, Urine Negative Negative mg/dL LAB URINALYSIS - AUTOMATED METHOD 07/14/2024 6:23 PM [facility] Urobilinogen, Urine 1.0 0.2 - 1.0 mg/dL LAB URINALYSIS - AUTOMATED METHOD 07/14/2024 6:23 PM [facility] Bilirubin, Urine Negative Negative LAB URINALYSIS - AUTOMATED METHOD 07/14/2024 6:23 PM [facility] Blood, Urine Negative Negative LAB URINALYSIS - AUTOMATED METHOD 07/14/2024 6:23 PM [facility] Urine Urine specimen obtained by clean catch procedure / Unknown Non-blood Collection / Unknown 07/14/2024 5:45 PM EST 07/14/2024 6:16 PM EST Private.Mends-Umm PA LAB URINE ORDERABLES F inal Result Performing Organization Address City/[facility]/ZIP Co de Phone Number [facility] [address] [place] [address], [place] [phone] * [place] urine culture tube (07/14/2024 5:45 PM EST) Extra Tube Hold for add-ons. 07/14/2024 8:01 PM EST [facility] Comment:Auto resulted. Urine Urine specimen obtained by clean catch procedure / Unknown Non-blood Collection / Unknown 07/14/2024 5:45 PM EST 07/14/2024 6:16 PM EST Marine Hynds-Umm PA LAB URINE ORDERABLES F inal Result Performing Organization Address [facility] Co de Phone Number [facility] [address] [place] [address], [place] [phone] from Last 3 Months Insurance MEDICARE MEDICAID - [place] Advance Directives * Full Code - Confirmed (Latest Code Status on File) Date Activated Date Inactivated Comments 07/14/2024 10:26 PM 07/15/2024 6:17 PM This code sta tus was ascertained in the following way: Code status discussion: discussion with patient To update the patient's code status, place a code status order. Do not modify or discontinue any currently active code status orders. * Full Code - Default Date Activated Date Inactivated Comments 07/14/2024 8:16 PM 07/14/2024 10:26 PM This is order is used when code status has not been discussed with the patient, or code status is otherwise unknown/unconfirmed To update the patient's code status, place a code status order. Do not modify or discontinue any currently active code status orders. Care Teams Continuous Churn Buttermaker Relationship Specialty Start Date End Date Trina Ibarra PA [address] [place] [id number] PCP - General 07/14/24
--- OUTSIDE RECORDS SUMMARY | 2024-08-23 15:50 | XMS_ITS | Clinical Summary ---
Author Organization [facility] Address [address] [place] [address] Care Team Providers Care Commercial Driver Name Role Phone Trina Ibarra PA-C Primary Care Provider [phone] Source Comments PLEASE NOTE, if this patient is a minor, it may be UNLAWFUL to discuss sensitive information that is contained in these records (such as FAMILY PLANNING, MENTAL HEALTH or SUBSTANCE ABUSE) with the minor patient's parent or other person without the patient's specific authorization.[facility] Allergies Active Allergy Reactions Criticality Noted Date Comments Iodine Anaphylaxis High 01/28/2022 Medications miscellaneous medical supply miscIndications:D e Quervain's tenosynovitis, bilateral,Primary osteoarthritis of lumbar spine,Rheumatoid arthritis involving multiple sites with positive rheumatoid factor (HCC-CMS),Primary osteoarthritis of both knees,Trochanteri c bursitis of both hips Dispense 1 cane for ambulation . Lifetime use: Dx: Rheumatoid arthritis involving both knees with positive rheumatoid factor (HCC-CMS) [M05.761, M05.762], De Quervain's tenosynovitis, bilateral [M65.4], Primary osteoarthritis of lumbar spine [M47.816] 1 Each 022 Active miscellaneous medical supply miscIndications:D e Quervain's tenosynovitis, bilateral,Primary osteoarthritis of lumbar spine,Rheumatoid arthritis involving multiple sites with positive rheumatoid factor (HCC-CMS),Primary osteoarthritis of both knees,Trochanteri c bursitis of both hips Dispense 1 shower bench . 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 Daily use. Lifetime. 1 Each 022 Active HUMIRA,CF, PEN 40 mg/0.4 mL pnkt 023 Active hydrOXYzine HCL (ATARAX) 25 mg tabletIndications :Primary insomnia Take 1 Tablet by mouth 3 (three) times daily as needed for anxiety or sleep 90 Tablet 1 023 Active acetaminophen (TYLENOL 8 HOUR) 650 mg CR tabletIndications :Chronic pain of left knee Take 1 Tablet by mouth every 8 (eight) hours as needed for pain 90 Tablet 1 023 Active ibuprofen 600 mg tabletIndications :Pain of right heel,Plantar fasciitis of right foot TAKE 1 TABLET BY MOUTH 4 TIMES DAILY NEEDED FOR PAIN. 10 Tablet 024 Active blood pressure monitorIndication s:hypertension Dispense one automated BP monitor, to be used daily and prn, length of need 99 years Indications: high blood pressure 1 Kit 1 024 Active simvastatin (ZOCOR) 5 mg tabletIndications :Hyperlipidemia, unspecified hyperlipidemia type TAKE 1 TABLET BY MOUTH NIGHTLY AT BEDTIME^1R4 30 Tablet 5 024 Active gabapentin (NEURONTIN) 100 mg capsuleIndication s:Chronic pain syndrome,Fibromya lgia,Rheumatoid arthritis involving multiple sites with positive rheumatoid factor ([facility]) TAKE TWO CAPSULES BY MOUTH THREE TIMES A DAY ^2R1,2R2,2R4 180 Capsule 1 025 Active omeprazole (PRILOSEC) [address] capsuleIndication s:Gastroesophagea l reflux disease without esophagitis TAKE ONE CAPSULE BY MOUTH EVERY MORNING BEFORE BREAKFAST ^1R1 30 Capsule 3 025 Active lidocaine (LIDODERM) 5 % patchIndications: Pain of left lower extremity PLACE ONE PATCH TOPICALLY TO CLEAN/DRY/HAIRLE SS SKIN WHERE MOST PAINFUL ONCE DAILY (EVERY 24 HOURS) AND LEAVE ON FOR 12 HOURS. REMOVE AND WAIT 12 HOURS BEFORE PUTTING ON A NEW PATCH (BULK) 30 Patch 1 025 Active cyanocobalamin (VITAMIN B-12) 1,000 mcg tabletIndications :B12 deficiency TAKE ONE TABLET BY MOUTH EVERY DAY ^1R1 30 Tablet 3 025 Active VENTOLIN HFA 90 mcg/actuation inhalerIndication s:Mild intermittent asthma without complication ([facility]) INHALE TWO PUFFS BY MOUTH EVERY 4 TO 6 HOURS NEEDED FOR SHORTNESS OF BREATH (BULK) 18 g 1 025 Active MISCELLANEOUS MEDICAL SUPPLY MISCIndications:O SA (obstructive sleep apnea) CPAP MACHINE PARTS - MASK AND HOSE. 1 Each 025 Active fluticasone (FLONASE) 50 mcg/actuation nasal sprayIndications: Nasal congestion USE 1 SPRAY IN EACH NOSTRIL ONCE DAILY (BULK) 16 g 025 Active diclofenac sodium (VOLTAREN) 1 % gelIndications:Ac poarch right-sided low back pain without sciatica APPLY 2 GRAMS TOPICALLY TO AFFECTED AREA(S) TWO TIMES A DAY (BULK) 100 g 025 Active lisinopriL 20 mg tabletIndications :Hypertension, unspecified type TAKE ONE TABLET BY MOUTH EVERY DAY ^1R1 30 Tablet 2 025 Active cetirizine (ZYRTEC) 10 mg tabletIndications :Dry cough TAKE ONE TABLET BY MOUTH EVERY DAY ^1R1 30 Tablet 2 025 Active lisinopriL 20 mg tabletIndications :Hypertension, unspecified type TAKE ONE TABLET BY MOUTH EVERY DAY ^1R1 30 Tablet 2 024 2024 Discontinued cetirizine (ZYRTEC) 10 mg tabletIndications :Dry cough Take 1 Tablet by mouth once daily 90 Tablet 025 2024 Discontinued diclofenac sodium (VOLTAREN) 1 % gelIndications:Ac poarch right-sided low back pain without sciatica APPLY 2 GRAM(S) TOPICALLY TO AFFECTED AREA(S) TWO TIMES A DAY (BULK) 100 g 025 2024 Discontinued fluticasone (FLONASE) 50 mcg/actuation nasal sprayIndications: Nasal congestion USE 1 SPRAY IN EACH NOSTRIL ONCE DAILY FOR 14 DAYS (BULK) 16 g 025 2024 Discontinued Active Problems Problem Noted Date Diagnosed Date Acute on chronic low back pain 07/23/2024 Overview (07/23/2024): [facility] Ed Admission Date 07/14/2024 Discharge Date 07/15/2024 XR Lumbar Spine 2-3 Views Final Result FINDINGS/IMPRESSION: Lumbar lordosis is preserved. No fracture. Mild multilevel degenerative loss of normal disc space height with endplate spurring. Lower lumbar predominant degenerative facet arthritis. Cholecystectomy clips. Arterial calcifications. MR Lumbar Spine wo Contrast Final Result Lower lumbar predominant degenerative disc and facet changes without significant foraminal or spinal canal stenosis. JAYASHREE (obstructive sleep apnea) 07/03/2024 Blind 05/30/2024 Overview (05/30/2024): Certificate of blindness - [facility] - Registration #[id number] - Date issue 11/14/2019 Fibromyalgia 04/27/2024 Osteoarthritis 03/17/2024 Overview (03/17/2024): 03/13/2024 - Arthritis treatment center - Localized cervical osteoarthritis, Localized lumbar osteoarthritis, Seropositive rheumatoid arthritis being managed with biologic therapy. - Meloxicam 7.5 mg tablet once daily - f/u with Dr. Reina History of mammogram 11/16/2023 Overview (05/12/2024): 05/06/2023 - Mammogram - Impression: No mammographic evidence of malignancy. Recommendations: annual mammographic screening. BI-RADS: 2 (Benign) 05/08/2024 - Mammogram - [facility] - Impression: No mammographic evidence of malignancy. Recommendation: annual mammographic screening. BI-RADS: 2( Benign) Varicose veins of both lower extremities with pa in 01/29/2022 Rheumatoid arthritis involvi ng multiple sites with positive rheumatoid factor ([facility]) 11/17/2021 Overview (03/17/2024): 03/13/2024 - Arthritis treatment center - Localized cervical osteoarthritis, Localized lumbar osteoarthritis, Seropositive rheumatoid arthritis being managed with biologic therapy. - Meloxicam 7.5 mg tablet once daily - f/u with Dr. Nuno Stephen's tenosynovitis, bilateral 2 Primary osteoarthritis of lumbar spine 2 Primary osteoarthritis of both knees 11/17/2021 Trochanteric bursitis of both hips 11/17/2021 Other insomnia 02/05/2020 Pain in joint, multiple sites 02/05/2020 Mild asthma ([facility]) 10/19/2018 Encounters Date Type Department Care Team Description 07/23/2024 1:20 PM EDT Telemedicine Visit [facility] [address] [place] [phone] Trina Ibarra PA-C [facility] discharge follow-up (Primary Dx); Acute on chronic low back pain 06/19/2024 1:40 PM EST Office Visit [facility] [address] [place] [phone] Trina Ibarra PA-C Martinez, Celestia Annual physical exam (Primary Dx); Mild intermittent asthma without complication; Dry cough; Nasal congestion; Acute right-sided low back pain without sciatica; Need for vaccination from Last 3 Months Immunizations Immunization Administration Dates Next Due PNEUMOCOCCAL POLYSACCHARIDE PPV23 02/25/2023 TDAP 02/22/2020 ZOSTER VACCINE, RECOMBINANT (SHINGRIX) 3 Family History Medical History Relation Name Comments Asthma Father Emphysema Father Heart attack Mother Hypertension Mother Cancer Sister 1 breast Ovarian cancer Sister 2 Relation Name Status Comments Brother 1 brother Father Mother Sister 1 3 sisters Sister 2 Alive Social History Tobacco Use Types Packs/Day Years Used Date Smoking Tobacco: Former Cigarettes 0.3 40 Smokeless Tobacco: Never Tobacco Cessation:Counseling Given: Not Answered Alcohol Use Standard Drinks/Week Comments Not Currently 0 (1 standard drink = 0.6 oz pur e alcohol) Social Connections Answer Date Recorded Connectedness 1 06/19/2024 Financial Resource Strain Answer Date R ecorded Financial Resource Strain 1 2024 Stress Answer Date Recorded Stress 1 06/19/2024 Physical Activity Answer Date Recorded Physical Activity 0 01/08/2019 Food Insecurity Answer Date Recorded Food 1 06/19/2024 Transportation Needs Answer Date Record ed Transportation 1 06/19/2024 Housing Stability Answer Date Recorded Housing 1 06/19/2024 Safety and Environment Answer Date Andrey rded Safety 0 01/08/2019 Utilities Answer Date Recorded Utilities 1 06/19/2024 Employment Answer Date Recorded Stress 0 02/04/2024 Comments No Sex and Gender Information Value Date Recorded Sex Assigned at Female 10/19/2018 6:43 AM PDT Legal Sex Female 11:09 AM PDT Gender Identity Female 10/19/2018 6:43 AM PDT Sexual Orientation Straight 10/19/2018 6: 43 AM PDT Occupation Industry Job Start Date Job End Date Unemployed Not on file Not on file Not on file Last Filed Vital Signs Vital Sign Reading Time Taken Comments Blood Pressure 144/80 06/19/2024 1:54 PM EST Pulse 84 06/19/2024 1:54 PM EST Temperature 36.7 ??C (98 ??F) 06/19/2024 1:54 PM EST Respiratory Rate 16 06/19/2024 1:54 PM EST Oxygen Saturation 98% 06/19/2024 1:54 PM EST Inhaled Oxygen Concentration - - Weight 87.1 kg (192 lb) 06/19/2024 1:54 PM EST Height 162.6 cm (5' 4 ) 06/19/2024 1:54 PM EST Body Mass Index 32.96 06/19/2024 1:54 PM EST Plan of Treatment Health Maintenance Due Date Last Done Comments Anxiety Screening 1959 CT Colonography 2004 Colonoscopy 2004 FIT/gFOBT 2004 Fecal DNA 2004 Flexible Sigmoidoscopy 2004 Imm-Pneumococcal 65+ (2 of 2 - PCV) 02/26/2024 02/25/2023 Bone Density Screening 2024 Falls Prevention 2024 [id number] (3 - Moderna risk series) 09/16/2024 08/21/2020, 07/25/2020 Postponed from 09/18/2020 (Patient postponement) Imm-Influenza (#1) 2024 Postponed from 01/15/2024 (Patient postponement) Imm-Zoster, Recombinant (2 of 2) 09/16/2024 02/25/2023 Postponed from 04/22/2023 (Patient postponement) Tobacco Screening 01/02/2025 01/03/2024, 01/28/2022 Lipid Screening 04/28/2025 04/28/2024, 02/13, 10/01/2022, Additional history exists Annual Preventive Care Visit 06/19/2025 06/19/2024, 06/19/2024, 02/25/2023, Additional history exists Medicare Annual Wellness Visit 06/19/2025 06/19/2024, 02/25/2023, 01/28/2022, Additional history exists Diabetes Screening 07/15/2025 07/15/2024, 0 07/14/2024, 04/28/2024, Additional history exists Breast Cancer Screening (Mammogram) 05/08/2026 05/08/2024, 05/06/2023, 05/04/2021, Additional history exists Imm-DTaP/Tdap/Td (2 - Td or Tdap) 02/21/2030 02/22/2020 Hepatitis C Screening Completed 10/19/2018 HIV Screening Completed 02/05/2020, 10/19/2018 Alcohol and Drug Screen Completed 06/19/19, 06/13/2023, 09/29/2022, Additional history exists Depression Annual Screen Completed 06/19/2024 Colorectal Cancer Screening Discontinued Procedures Procedure Name Priority Date/Time Associated Diagnosis Comments LAB SCANNED DOCUMENT 08/08/2024 3:00 AM EDT LAB SCANNED DOCUMENT 08/08/2024 3:00 AM EDT OTHER ORDERS SCANNED DOCUMENT 07/26/2024 3:00 AM EDT QUANTIFERON-TB GOLD PLUS Routine 06/21/2024 2:09 PM EST Annual physical exam BLOOD COUNT COMPLETE AUTO&AUTO DIFRNTL WBC Routine 06/21/2024 2:09 PM EST Annual physical exam TSH W/RFLX FREE T4 Routine 06/21/2024 2: 09 PM EST Annual physical exam OTHER ORDERS SCANNED DOCUMENT 05/31/2024 3:00 AM EST OTHER ORDERS SCANNED DOCUMENT 05/30/2024 3:00 AM EST HISTORIC MAMMOGRAM 05/08/2024 3: 00 AM EST COMPREHENSIVE METABOLIC PANEL Routine 04/28/2024 9:41 AM EST Hypertension, unspecified type Hyperlipidemia, unspecified hyperlipidemia type LIPID PANEL Routine 04/28/2024 9:41 AM EST Hypertension, unspecified type Hyperlipidemia, unspecified hyperlipidemia type ANTIBODY HIV-1&HIV-2 SINGLE RESULT Routine 02/05/2020 10:53 AM EDT Encounter for general adult medical examination w/o abnormal findings HEPATITIS A,B,C PANEL Routine 10/19/2018 10:16 AM EDT Laboratory exam ordered as part of routine general medical examination from Last 3 Months or Most Recently Relevant to Health Maintenance Results * LAB SCANNED DOCUMENT (08/08/2024 3:00 AM EDT) Only the most recent of2 resultswithin the time period is included. 08/08/2024 3:00 AM EDT Trina Ibarra PA-C SCAN LAB Final Resul t * OTHER ORDERS SCANNED DOCUMENT (07/26/2024 3:00 AM EDT) Only the most recent of3 resultswithin the time period is included. 07/26/2024 3:00 AM EDT Trina Ibarra PA-C SCAN OTHER ORDERS Final Res ult * QUANTIFERON-TB GOLD PLUS (06/21/2024 2:09 PM EST) QUANTIFERON NEGATIVE NEGATIVE [facility] Comment: Negative test result. M. tuberculosis complex infection unlikely. NIL 0.04 IU/mL [facility] MITOGEN-NIL 8.55 IU/mL [facility] TB1-NIL 0.00 IU/mL [facility] TB2-NIL 0.00 IU/mL [facility] Comment: The Nil tube value reflects the background interferon gamma immune response of the patient's blood sample. This value has been subtracted from the patient's displayed TB and Mitogen results. Lower than expected results with the Mitogen tube prevent false-negative Quantiferon readings by detecting a patient with a potential immune suppressive condition and/or suboptimal pre-analytical specimen handling. The TB1 Antigen tube is coated with the M. tuberculosis-specific antigens designed to elicit responses from TB antigen primed CD4+ helper T-lymphocytes. The TB2 Antigen tube is coated with the M. tuberculosis-specific antigens designed to elicit responses from TB antigen primed CD4+ helper and CD8+ cytotoxic T-lymphocytes. For additional information, please refer to https://education.OpVista/faq/KCF560 (This link is being provided for informational/ educational purposes only.) Blood Blood / Unknown 06/21/2024 2 :09 PM EST 06/21/2024 2:09 PM EST us Trina Ibarra PA-C LAB - BLOOD DRAW Final Resu lt Performing Organization Address [facility]/ZIP Co [place] [address], [employer] [address] [phone] * TSH W/RFLX FREE T4 (06/21/2024 2:09 PM EST) Pathologist [facility] TSH W/REFLEX TO FT4 1.14 0.40 - 4.50 mIU/L [facility] Blood Blood / Unknown 06/21/2024 2 :09 PM EST 06/21/2024 2:09 PM EST us Trina Ibarra PA-C LAB - BLOOD DRAW Edited Res ult - Final Performing Organization Address City/[facility]/ZIP Co de [place] [address], [employer] [address] [phone] * (ABNORMAL) BLOOD COUNT COMPLETE AUTO&AUTO DIFRNTL WBC (06/21/2024 2:09 PM EST) Pathologist [facility] WHITE BLOOD CELL COUNT 10.7 3.8 - 10.8 Thousand/ uL [facility] RED BLOOD CELL COUNT 4.47 3.80 - 5.10 Million/u L [facility] HEMOGLOBIN 13.6 11.7 - 15.5 g/dL [facility] HEMATOCRIT 40.5 35.0 - 45.0 % [facility] MCV 90.6 80.0 - 100.0 fL [facility] [place] [employer] MCH 30.4 27.0 - 33.0 pg [facility] MCHC 33.6 32.0 - 36.0 g/dL [facility] Comment: For adults, a slight decrease in the calculated MCHC value (in the range of 30 to 32 g/dL) is most likely not clinically significant; however, it should be interpreted with caution in correlation with other red cell parameters and the patient's clinical condition. RDW 12.0 11.0 - 15.0 % [facility] PLATELET COUNT 243 140 - 400 Thousand/ uL [facility] [place] [employer] MPV 12.5 7.5 - 12.5 fL [facility] ABSOLUTE NEUTROPHILS 5,457 1,500 - 7,800 cells/uL [facility] ABSOLUTE LYMPHOCYTES 3,692 850 - 3,900 cells/uL [facility] ABSOLUTE MONOCYTES 899 200 - 950 cells/uL [facility] ABSOLUTE EOSINOPHILS 578(H) 15 - 500 cells/uL [facility] ABSOLUTE BASOPHILS 75 0 - 200 cells/uL [facility] [place] [employer] NEUTROPHILS PCT 51 % [facility] [employer] [facility] LYMPHOCYTES 34.5 % [facility] [employer] [facility] MONOCYTES 8.4 % [facility] [employer] [facility] EOSINOPHILS 5.4 % [facility] [employer] [facility] BASOPHILS 0.7 % [facility] [employer] [facility] Blood Blood / Unknown 06/21/2024 2 :09 PM EST 06/21/2024 2:09 PM EST us Trina Ibarra PA-C LAB - BLOOD DRAW Edited Res ult - Final [facility] [address] [address], [employer] [address] [place] [phone] * HISTORIC MAMMOGRAM (05/08/2024 3:00 AM EST) 05/08/2024 3:00 AM EST Trina Ibarra PA-C IMG MAMMO Final Resul t * (ABNORMAL) LIPID PANEL (04/28/2024 9:41 AM EST) CHOLESTEROL, TOTAL 160 <200 mg/dL [facility] HDL CHOLESTEROL 46(L) > OR = 50 mg/dL [facility] TRIGLYCERIDES 107 <150 mg/dL [facility] LDL-CHOLESTEROL 94 99 mg/dL (calc) [facility] Comment: Reference range: <100 Desirable range <100 mg/dL for primary prevention; ?? <70 mg/dL for patients with CHD or diabetic patients with > or = 2 CHD risk factors. LDL-C is now calculated using the Lien calculation, which is a validated novel method providing better accuracy than the Friedewald equation in the estimation of LDL-C. Lester SS et al. SHERRY. 2013;310(19): 3769-7350 (http://education.Tu Closet Mi Closet/faq/PSD805) CHOL/HDLC RATIO 3.5 <5.0 (calc) [facility] NON-HDL CHOLESTEROL 114 <130 mg/dL (calc) [facility] Comment: For patients with diabetes plus 1 major ASCVD risk factor, treating to a non-HDL-C goal of <100 mg/dL (LDL-C of <70 mg/dL) is considered a therapeutic option. Blood Blood / Unknown 04/28/2024 9 :41 AM EST 04/28/2024 9:41 AM EST Narrative [facility] - 04/29/2024 5:31 AM EST FASTING:NO us Trina Ibarra PA-C LAB - BLOOD DRAW Final Resu lt [facility] [address] [address], [facility] [address] [address] * COMPREHENSIVE METABOLIC PANEL (04/28/2024 9:41 AM EST) GLUCOSE 123 65 - 139 mg/dL [facility] Comment: ?Non-fasting reference interval UREA NITROGEN (BUN) 14 7 - 25 mg/dL [facility] CREATININE (blood) 0.63 0.50 - 1.05 mg/dL [facility] EGFR 99 > OR = 60 mL/min/1. 73m2 [facility] BUN/CREATININE RATIO SEE NOTE: [facility] Comment: ?? Not Reported: BUN and Creatinine are within ?? reference range. ? SODIUM 142 135 - 146 mmol/L [facility] POTASSIUM 4.4 3.5 - 5.3 mmol/L [facility] CHLORIDE 106 98 - 110 mmol/L [facility] CARBON DIOXIDE 31 20 - 32 mmol/L [facility] CALCIUM 9.0 8.6 - 10.4 mg/dL [facility] PROTEIN, TOTAL 7.4 6.1 - 8.1 g/dL [facility] ALBUMIN 4.2 3.6 - 5.1 g/dL [facility] GLOBULIN 3.2 1.9 - 3.7 g/dL (calc) [facility] ALBUMIN/GLOBULI N RATIO 1.3 1.0 - 2.5 (calc) [facility] BILIRUBIN, TOTAL 0.5 0.2 - 1.2 mg/dL [facility] ALKALINE PHOSPHATASE 64 37 - 153 U/L [facility] AST 15 10 - 35 U/L [facility] ALT 17 6 - 29 U/L [facility] Blood Blood / Unknown 04/28/2024 9 :41 AM EST 04/28/2024 9:41 AM EST Narrative [facility] - 04/29/2024 5:31 AM EST FASTING:NO us Trina Ibarra PA-C LAB - BLOOD DRAW Final Resu lt [facility] [address] [address], [facility] [address] [place] [address] * HIV-1 & HIV-2 ANTIBODIES (02/05/2020 10:53 AM EDT) [facility] HIV 1 AND 2 ANTIBODY SCREEN NEGATIVE NEGATIVE [facility] Comment: This assay is a 4th generation assay allowing for earlier detection of HIV infection by detecting the presence of the HIV-1 p24 antigen as well as the traditional antibodies to HIV type 1 (including group O) and type 2. ??Use of a 4th generation assay is the current CDC recommendation for HIV screening. Blood specimen (specimen) Blood / Unknown 02/05/2020 10:53 AM EDT 02/05/2020 4:46 PM EDT [facility] - 02/05/2020 6:59 PM EDT [employer], [place] [address] Ehs Manager - Summer Mark MD PT ID [id number] ORD# [id number] [facility] LAB - BLOOD [place] [address], * (ABNORMAL) HEPATITIS A,B,C PANEL (10/19/2018 10:16 AM EDT) Pathologist [facility] HEPATITIS B SURFACE ANTIBODY NEGATIVE NEGATIVE [facility] HEPATITIS B SURFACE ANTIGEN NEGATIVE NEGATIVE [facility] Comment: Over the counter supplements containing high doses of biotin may interfere with this assay. ??If interference is suspected, patients shoud be retested after refraining from biotin supplements for 72 hours. HEPATITIS C VIRUS DIAGNOSTIC NEGATIVE NEGATIVE [facility] HEPATITIS A ANTIBODY TOTAL POSITIVE(A) NEGATIVE [facility] Comment: Over the counter supplements containing high doses of biotin may interfere with this assay. ??If interference is suspected, patients shoud be retested after refraining from biotin supplements for 72 hours. HEPATITIS B CORE ANTIBODY NEGATIVE NEGATIVE [facility] Blood specimen (specimen) Blood / Unknown 10/19/2018 10:16 AM EDT 10/19/2018 5:03 PM EDT [facility] - 10/19/2018 6:24 PM EDT [employer], a member of [facility] [address] [place] [address] Ehs Manager - Brittni Cash MD PT ID [id number] ORD# [id number] [employer] OFFICER LAB - BLOOD DRAW Edited Result - Final [facility] [address] [place] [address], from Last 3 Months or Most Recently Relevant to Health Maintenance [place] Care Teams Commercial Driver Relationship Specialty Start Date End Date Trina Ibarra PA-C [facility] [place] [address] PCP - General Primary Care 02/23/23
== END 2024-08-23 14:33 | disposition home or self-care (01) ==
LOC: HO.RHES 13:07
PROVIDERS: PCP Student in an Organized Health Care Education/Training Program; Visit Provider Internal Medicine Rheumatology
DX: M06.9 Rheumatoid arthritis, unspecified (principal); Z79.899 Other long term (current) drug therapy; M79.7 Fibromyalgia; R74.01 Elevation of levels of liver transaminase levels
CPT/HCPCS: 99214

== ENCOUNTER → 2024-08-23 13:07 | Outpatient (BNVA) | payer MEDICAID, SELFPAY | PROVIDERS: PCP Student in an Organized Health Care Education/Training Program; Visit Provider Internal Medicine Rheumatology | DX: M06.9 Rheumatoid arthritis, unspecified (principal); M79.7 Fibromyalgia; R74.01 Elevation of levels of liver transaminase levels; Z79.899 Other long term (current) drug therapy | CPT/HCPCS: 99212 ==

== ENCOUNTER 2024-09-26 14:06 | Outpatient (REF) | payer MEDICARE, MEDICAID, SELFPAY ==
--- OUTSIDE RECORDS SUMMARY | 2024-09-26 15:06 | XMS_ITS | Clinical Summary ---
Author Organization [facility] Address [address] [place] [address] Care Team Providers Care Pharmacy Resource Tech Name Role Phone Trina Ibarra PA-C Primary Care Provider [phone] Source Comments PLEASE NOTE, if this patient [...] involving multiple sites with positive rheumatoid factor ([facility]) TAKE TWO CAPSULES BY MOUTH THREE TIMES [...] mcg/actuation inhalerIndicatio ns:Mild intermittent asthma without complication ([facility]) INHALE TWO PUFFS BY MOUTH EVERY 4 [...] chronic low back pain 07/23/2024 Overview (07/23/2024): [facility] Admission Date 07/14/2024 Discharge Date [...] 05/30/2024 Overview (05/30/2024): Certificate of blindness - [facility] - Registration #[id number] - Date issue 11/14/2019 Fibromyalgia 04/27/2024 Osteoarthritis [...] BI-RADS: 2 (Benign) 05/08/2024 - Mammogram - [facility] - Impression: No mammographic evidence of malignancy. Recommendation: annual mammographic screening. BI-RADS: 2( Benign) Varicose veins of both lower extremities with pa in 01/29/2022 Rheumatoid arthritis involvi ng multiple sites with positive rheumatoid factor ([facility]) 11/17/2021 Overview (03/17/2024): 03/13/2024 - Arthritis [...] in joint, multiple sites 02/05/2020 Mild asthma ([facility]) 10/19/2018 Encounters Date Type Department Care Team Description 08/28/2024 Results Follow-Up [facility] [address] [place] [address] Trina Ibarar PA-C 07/23/2024 1:20 PM EDT Telemedicine Visit [facility] [address] [place] [address] Trina Ibarra PA-C Rodriguez, Anabel [...] Colonography 2004 Colonoscopy 2004 Flexible Sigmoidoscopy 2004 [id number] (3 - Moderna ri sk series) 09/18/2020 [...] - NO BLOOD DRAW Final R esult [facility] [address] [facility], [address] [facility] [id number] [place] [address], [place] [phone] * HISTORIC MAMMOGRAM (05/08/2024 3:00 AM EST) 05/08/2024 3:00 AM EST us Trina Ibarra PA-C IMG MAMMO Final Resul t * (ABNORMAL) LIPID PANEL (04/28/2024 9:41 AM EST) CHOLESTEROL, TOTAL 160 <200 mg/dL [facility] HDL CHOLESTEROL 46(L) > OR = 50 mg/dL [facility] TRIGLYCERIDES 107 <150 mg/dL [facility] LDL-CHOLESTEROL 94 99 mg/dL (calc) [facility] Comment: Reference range: <100 Desirable range <100 mg/dL for primary prevention; ?? <70 mg/dL for patients with CHD or diabetic patients with > or = 2 CHD risk factors. LDL-C is now calculated using the Lester-Elmer calculation, which is a validated novel method providing better accuracy than the Friedewald equation in the estimation of LDL-C. Lester SS et al. SHERRY. 2013;310(19): 8506-8210 (http://education.Dakwak/faq/NFK526) CHOL/HDLC RATIO 3.5 <5.0 (calc) [facility] NON-HDL CHOLESTEROL 114 <130 mg/dL (calc) [facility] Comment: For patients with diabetes plus 1 major ASCVD risk factor, treating to a non-HDL-C goal of <100 mg/dL (LDL-C of <70 mg/dL) is considered a therapeutic option. Blood Blood / Unknown 04/28/2024 9 :41 AM EST 04/28/2024 9:41 AM EST Narrative [facility] - 04/29/2024 5:31 AM EST FASTING:NO us Trina Ibarra PA-C LAB - BLOOD DRAW Final Resu lt [facility] [address] [address], [facility] [address] [address] * COMPREHENSIVE METABOLIC PANEL (04/28/2024 9:41 AM EST) GLUCOSE 123 65 - 139 mg/dL [facility] Comment: ?Non-fasting reference interval UREA NITROGEN (BUN) 14 7 - 25 mg/dL [facility] CREATININE (blood) 0.63 0.50 - 1.05 mg/dL [facility] EGFR 99 > OR = 60 mL/min/1. 73m2 [facility] BUN/CREATININE RATIO SEE NOTE: [facility] Comment: ?? Not Reported: BUN and Creatinine are within ?? reference range. ? SODIUM 142 135 - 146 mmol/L [facility] POTASSIUM 4.4 3.5 - 5.3 mmol/L [facility] CHLORIDE 106 98 - 110 mmol/L [facility] CARBON DIOXIDE 31 20 - 32 mmol/L [facility] CALCIUM 9.0 8.6 - 10.4 mg/dL [facility] PROTEIN, TOTAL 7.4 6.1 - 8.1 g/dL [facility] ALBUMIN 4.2 3.6 - 5.1 g/dL [facility] GLOBULIN 3.2 1.9 - 3.7 g/dL (calc) [facility] ALBUMIN/GLOBULI N RATIO 1.3 1.0 - 2.5 (calc) [facility] BILIRUBIN, TOTAL 0.5 0.2 - 1.2 mg/dL [facility] ALKALINE PHOSPHATASE 64 37 - 153 U/L [facility] AST 15 10 - 35 U/L [facility] ALT 17 6 - 29 U/L [facility] Blood Blood / Unknown 04/28/2024 9 :41 AM EST 04/28/2024 9:41 AM EST Narrative [facility] - 04/29/2024 5:31 AM EST FASTING:NO us Trina Ibarra PA-C LAB - BLOOD DRAW Final Resu lt [facility] [address] [address], [facility] [address] [place] [address] * HIV-1 & HIV-2 ANTIBODIES (02/05/2020 10:53 AM EDT) HIV 1 AND 2 ANTIBODY SCREEN NEGATIVE [facility]GAT[facility] Comment: This assay is a 4th generation [...] 10:53 AM EDT 02/05/2020 4:46 PM EDT [facility] - 02/05/2020 6:59 PM EDT [facility] [employer] [address] [employer] Helper - Summer Mark MD PT ID [id number] ORD# [id number] Ira[facility]ACARIASP LAB - [place] [address], * (ABNORMAL) HEPATITIS A,B,C PANEL (10/19/2018 10:16 AM EDT) HEPATITIS B SURFACE ANTIBODY NEGATIVE NEGATIVE [facility] HEPATITIS B SURFACE ANTIGEN NEGATIVE NEGATIVE [facility] Comment: Over the counter supplements containing high doses of biotin may interfere with this assay. ??If interference is suspected, patients shoud be retested after refraining from biotin supplements for 72 hours. HEPATITIS C VIRUS DIAGNOSTIC NEGATIVE NEGATIVE [facility] HEPATITIS A ANTIBODY TOTAL POSITIVE(A) [facility]GAT[facility] Comment: Over the counter supplements containing high doses of biotin may interfere with this assay. ??If interference is suspected, patients shoud be retested after refraining from biotin supplements for 72 hours. HEPATITIS B CORE ANTIBODY NEGATIVE [facility]GAT[facility] Blood specimen (specimen) Blood / Unknown 10/19/2018 10:16 AM EDT 10/19/2018 5:03 PM EDT Narrative [facility] - 10/19/2018 6:24 PM EDT [employer], a member of [address] [address] [employer]per - Brittni Cash MD PT ID [id number] ORD# [id number] Bola Magana NP LAB - BLOOD DRAW Edited Result - Final [facility] [address] [place] [address], from Last 3 Months or Most Recently Relevant to Health Maintenance Insurance [place] Care Teams Pharmacy Resource Tech Relationship Specialty Start Date End Date Trina Ibarra PA-C [address] [place] [address] PCP - General Primary Care 02/23/23
--- OUTSIDE RECORDS SUMMARY | 2024-09-26 15:06 | XMS_ITS | Clinical Summary ---
Author Organization [facility] Address [address] [place] [phone] Phone Care Team Providers Care Client Technical Professional Name Role Phone Trina Ibarra Primary Care Provider [phone] Allergies Active Allergy Reactions Criticality Noted Date [...] - 07/15/2024 4:16 PM EST Hospital Encounter [facility] [address] [place] [phone] Rios Kelly MD Jones, Christopher, MD Santoyo-Pachec o, Omar D, MD Intractable low back pain (Primary Dx); Acute midline low back pain without sciatica; Acute bilateral low back pain without sciatica Discharge Disposition: Home-Health Care [facility] from Last 3 Months Medical History [...] Signed Date: 07/15/2024 10:49 ET Workstation ID: [id number] Transcribed By: Self Edit Transcribed Date: 07/15/2024 [...] Signed Date: 07/15/2024 10:49 ET Workstation ID: [id number] Transcribed By: Self Edit Transcribed Date: 07/15/2024 10:40 ET [facility] IMG MRI PROCEDURES Fin al Result * (ABNORMAL) CBC auto differential (07/15/2024 6:54 AM EST) Only the most recent of2 resultswithin the time period is included. WBC 9.4 4.8 - 10.8 K/mcL LAB HEMETOLOGY METHOD 07/15/2024 7:34 AM [facility] RBC 4.50 3.80 - 4.80 M/mcL LAB HEMETOLOGY METHOD 07/15/2024 7:34 AM [facility] Hemoglobin 13.3 11.5 - 16.0 g/dL LAB HEMETOLOGY METHOD 07/15/2024 7:34 AM [facility] Hematocrit 42.4 35.0 - 47.0 % LAB HEMETOLOGY METHOD 07/15/2024 7:34 AM [facility] MCV 95.1 79.0 - 98.0 FL LAB HEMETOLOGY METHOD 07/15/2024 7:34 AM [facility] MCH 29.8 27.0 - 32.0 pcg LAB HEMETOLOGY METHOD 07/15/2024 7:34 AM [facility] MCHC 31.4(L) 32.0 - 37.0 g/dL LAB HEMETOLOGY METHOD 07/15/2024 7:34 AM [facility] RDW 12.2 11.0 - 15.0 % LAB HEMETOLOGY METHOD 07/15/2024 7:34 AM [facility] Platelets 215 130 - 400 K/mcL LAB HEMETOLOGY METHOD 07/15/2024 7:34 AM [facility] MPV 11.8(H) 7.0 - 11.0 FL LAB HEMETOLOGY METHOD 07/15/2024 7:34 AM [facility] NRBC 0.0 <1.0 % LAB HEMETOLOGY METHOD 07/15/2024 7:34 AM [facility] NRBC Absolute 0.00 <0.10 K/mcL LAB HEMETOLOGY METHOD 07/15/2024 7:34 AM [facility] Neutrophils Relative 34.3 % LAB HEMETOLOGY METHOD 07/15/2024 7:34 AM [facility] Lymphocytes Relative 38.2 % LAB HEMETOLOGY METHOD 07/15/2024 7:34 AM [facility] Monocytes Relative 9.6 % LAB HEMETOLOGY METHOD 07/15/2024 7:34 AM [facility] Eosinophils Relative 17.0 % LAB HEMETOLOGY METHOD 07/15/2024 7:34 AM [facility] Basophils Relative 0.7 % LAB HEMETOLOGY METHOD 07/15/2024 7:34 AM [facility] Immature Granulocytes Relative 0.2 % LAB HEMETOLOGY METHOD 07/15/2024 7:34 AM [facility] Neutrophils Absolute 3.21 1.50 - 7.00 K/mcL LAB HEMETOLOGY METHOD 07/15/2024 7:34 AM [facility] Lymphocytes Absolute 3.59 1.00 - 5.00 K/mcL LAB HEMETOLOGY METHOD 07/15/2024 7:34 AM [facility] Monocytes Absolute 0.90 0.20 - 1.00 K/mcL LAB HEMETOLOGY METHOD 07/15/2024 7:34 AM [facility] Eosinophils Absolute 1.60(H) 0.00 - 0.50 K/mcL LAB HEMETOLOGY METHOD 07/15/2024 7:34 AM [facility] Basophils Absolute 0.07 0.00 - 0.20 K/mcL LAB HEMETOLOGY METHOD 07/15/2024 7:34 AM [facility] Immature Granulocytes Absolute 0.02 0.00 - 0.03 K/mcL LAB HEMETOLOGY METHOD 07/15/2024 7:[address] [facility] Blood Venous blood specimen / Unknown Venipuncture / Unknown 07/15/2024 6:54 AM EST 07/15/2024 7:06 AM EST Shen Mejias MD LAB BLOOD ORDERABLES Final Result Performing Organization Address City/[facility]/ZIP Co de Phone Number [facility] [address] [place] [address], [place] [phone] * Sedimentation rate (07/15/2024 6:54 AM EST) Only the most recent of2 resultswithin the time period is included. Sed Rate 8 0 - 30 mm/hr LAB HEMETOLOGY METHOD 07/15/2024 7:[address] [facility] Blood Venous blood specimen / Unknown Venipuncture / Unknown 07/15/2024 6:54 AM EST 07/15/2024 7:06 AM EST [facility] LAB BLOOD ORDERABLES Final Res ult Performing Organization Address [facility] Co de Phone Number [facility] [address] [place] [address], * (ABNORMAL) Basic metabolic panel (07/15/2024 6:54 AM EST) Only the most recent of2 resultswithin the time period is included. Sodium 140 133 - 145 mmol/L LAB CHEMISTRY METHOD 07/15/2024 7:[address] [facility] Potassium 4.5 3.5 - 5.5 mmol/L LAB CHEMISTRY METHOD 07/15/2024 7:[address] [facility] Chloride 111(H) 96 - 110 mmol/L LAB CHEMISTRY METHOD 07/15/2024 7:[address] [facility] CO2 24 21 - 32 mmol/L LAB CHEMISTRY METHOD 07/15/2024 7:46 AM [facility] Anion Gap 5 3 - 11 LAB CHEMISTRY METHOD 07/15/2024 7:46 AM [facility] Glucose 101(H) 70 - 100 mg/dL LAB CHEMISTRY METHOD 07/15/2024 7:46 AM [facility] BUN 10 5 - 25 mg/dL LAB CHEMISTRY METHOD 07/15/2024 7:46 AM [facility] Creatinine 0.59 0.50 - 1.10 mg/dL LAB CHEMISTRY METHOD 07/15/2024 7:46 AM [facility] eGFR 100 >=60 mL/min/1. 73m2 LAB CHEMISTRY METHOD 07/15/2024 7:46 AM [facility] Comment:Calculation based on the??Chronic Kidney Disease Epidemiology Collaboration (CKD-EPI) equation refit??without adjustment for race. BUN/Creatinine Ratio 16.9 LAB CHEMISTRY METHOD 07/15/2024 7:46 AM [facility] Calcium 8.7 8.5 - 10.5 mg/dL LAB CHEMISTRY METHOD 07/15/2024 7:46 AM [facility] Blood Venous blood specimen / Unknown Venipuncture / Unknown 07/15/2024 6:54 AM EST 07/15/2024 7:06 AM EST us Shen Mejias MD LAB BLOOD ORDERABLES Final Result [facility] [address] [place] [address], * (ABNORMAL) C-reactive protein (07/14/2024 7:18 PM EST) C-Reactive Protein 0.59(H) <=0.50 mg/dL LAB CHEMISTRY METHOD 07/14/2024 8:13 PM [facility] Blood Venous blood specimen / Unknown Venipuncture / Unknown 07/14/2024 7:18 PM EST 07/14/2024 7:30 PM EST us Shen Mejias MD LAB BLOOD ORDERABLES Final Result [facility] [address] [place] [address], [place] [phone] * Thyroid stimulating hormone (07/14/2024 7:18 PM EST) Pathologist [facility] TSH 1.53 0.40 - 4.00 mcIU/mL LAB CHEMISTRY METHOD 07/14/2024 8:[address] [facility] Blood Venous blood specimen / Unknown Venipuncture / Unknown 07/14/2024 7:18 PM EST 07/14/2024 7:30 PM EST us Shen Mejias MD LAB BLOOD ORDERABLES Final Result Performing Organization Address City/[facility]/ZIP Co de Phone Number [facility] [address] [place] [address], [place] [phone] * Creatine kinase and CKMB (07/14/2024 7:18 PM EST) Pathologist [facility] Total CK 72 22 - 269 unit/L LAB CHEMISTRY METHOD 07/14/2024 8:[address] [facility] CK-MB 1.0 1.0 - 3.6 ng/mL LAB CHEMISTRY METHOD 07/14/2024 8:[address] [facility] CK-MB Index 0.0 0.0 - 5.0 LAB CHEMISTRY METHOD 07/14/2024 8:[address] [facility] Blood Venous blood specimen / Unknown Venipuncture / Unknown 07/14/2024 7:18 PM EST 07/14/2024 7:30 PM EST us Shen Mejias MD LAB BLOOD ORDERABLES Final Result Performing Organization Address City/[facility]/ZIP Co de Phone Number [facility] [address] [place] [address], [place] [phone] * Hepatic function panel (07/14/2024 7:18 PM EST) Total Protein 7.3 6.0 - 8.0 g/dL LAB CHEMISTRY METHOD 07/14/2024 8:[address] [facility] Albumin 3.5 3.2 - 5.0 g/dL LAB CHEMISTRY METHOD 07/14/2024 8:[address] [facility] Total Bilirubin 0.3 0.0 - 1.4 mg/dL LAB CHEMISTRY METHOD 07/14/2024 8:34 PM [facility] Bilirubin, Direct 0.1 0.0 - 0.3 mg/dL LAB CHEMISTRY METHOD 07/14/2024 8:34 PM [facility] Bilirubin, Indirect 0.2 0.0 - 1.1 mg/dL LAB CHEMISTRY METHOD 07/14/2024 8:[address] [facility] ALT (SGPT) 35 10 - 60 unit/L LAB CHEMISTRY METHOD 07/14/2024 8:34 PM [facility] AST (SGOT) 20 10 - 42 unit/L LAB CHEMISTRY METHOD 07/14/2024 8:34 PM [facility] Alkaline Phosphatase 65 42 - 121 unit/L LAB CHEMISTRY METHOD 07/14/2024 8:34 PM [facility] Blood Venous blood specimen / Unknown Venipuncture / Unknown 07/14/2024 7:18 PM EST 07/14/2024 7:30 PM EST Shen Mejias MD LAB BLOOD ORDERABLES Final Result Performing Organization Address City/[facility]/ZIP Co de Phone Number [facility] [address] [place] [address], [place] [phone] * XR Lumbar Spine 2-3 Views (07/14/2024 [...] Signed Date: 07/15/2024 10:02 ET Workstation ID: [id number] Transcribed By: Self Edit Transcribed Date: 07/15/2024 [...] Signed Date: 07/15/2024 10:02 ET Workstation ID: [id number] Transcribed By: Self Edit Transcribed Date: 07/15/2024 09:59 ET us Shen Mejias MD IMG XR PROCEDURES Final Res ult * Urinalysis with reflex microscopic and culture (07/14/2024 5:45 PM EST) Specific [place] Urine 1.009 1.003 - 1.030 LAB URINALYSIS - AUTOMATED METHOD 07/14/2024 6:23 PM [facility] pH, Urine 6.5 5.0 - 8.0 pH LAB URINALYSIS - AUTOMATED METHOD 07/14/2024 6:23 PM [facility] Leukocytes, Urine Negative Negative LAB URINALYSIS - AUTOMATED METHOD 07/14/2024 6:23 PM [facility] Nitrite, Urine Negative Negative LAB URINALYSIS - AUTOMATED METHOD 07/14/2024 6:23 PM [facility] Protein, Urine Negative <=Trace mg/dL LAB URINALYSIS - AUTOMATED METHOD 07/14/2024 6:23 PM [facility] Glucose, Urine Negative Negative mg/dL LAB URINALYSIS - AUTOMATED METHOD 07/14/2024 6:23 PM [facility] Ketones, Urine Negative Negative mg/dL LAB URINALYSIS - AUTOMATED METHOD 07/14/2024 6:23 PM [facility] Urobilinogen, Urine 1.0 0.2 - 1.0 mg/dL LAB URINALYSIS - AUTOMATED METHOD 07/14/2024 6:23 PM [facility] Bilirubin, Urine Negative Negative LAB URINALYSIS - AUTOMATED METHOD 07/14/2024 6:23 PM [facility] Blood, Urine Negative Negative LAB URINALYSIS - AUTOMATED METHOD 07/14/2024 6:23 PM [facility] Urine Urine specimen obtained by clean catch procedure / Unknown Non-blood Collection / Unknown 07/14/2024 5:45 PM EST 07/14/2024 6:16 PM EST [facility] LAB URINE ORDERABLES F inal Result [facility] [address] [place] [address], [place] [phone] * [place] urine culture tube (07/14/2024 5:45 PM EST) Extra Tube Hold for add-ons. 07/14/2024 8:[address] [facility] Comment:Auto resulted. Urine Urine specimen obtained by clean catch procedure / Unknown Non-blood Collection / Unknown 07/14/2024 5:45 PM EST 07/14/2024 6:16 PM EST [facility] LAB URINE ORDERABLES F inal Result [facility] [address] [place] [address], [place] [phone] from Last 3 Months Insurance MEDICARE MEDICAID [...] currently active code status orders. Care Teams Client Technical Professional Relationship Specialty Start Date End Date Trina Ibarra PA PCP - General 07/14/24
[2024-09-26 18:12] LABS: MANUAL DIFF FLAG NO
[2024-09-26 18:28] LABS: Basophils Absolute Auto 0.1 X10*3/uL (0.0-0.2); Basophils Percent Auto 0.8 % (0-2); Eosinophils Absolute Auto 1.2 X10*3/uL (0.0-0.4); Eosinophils Percent Auto 11.3 % (0-4); Hematocrit 41.2 % (37.0-47.0); Hemoglobin 13.4 g/dl (12.0-16.0); Imm Gran Abs Auto 0.03 X10*3/uL (0.00-0.03); Imm Gran Pct Auto 0.3 % (0.0-0.4); Lymphocytes Absolute Auto 3.8 X10*3/uL (1.2-4.9); Lymphocytes Percent Auto 35.9 % (20-40); Mean Corpuscular HGB Conc 32.5 g/dl (31.0-35.0); Mean Corpuscular Hemoglobin 29.8 pg (27.0-33.0); Mean Corpuscular Volume 91.6 fL (80.0-98.0); Mean Platelet Volume 12.7 fL (9.4-12.3); Monocytes Absolute Auto 1.1 X10*3/uL (0.1-1.2); Monocytes Percent Auto 10.2 % (2-11); Neutrophils Absolute Auto 4.4 x10*3/uL (2.0-8.3); Neutrophils Percent Auto 41.5 % (45-73); Platelet Count 241 X10*3/uL (160-400); Red Cell Distribution Width 12.4 % (11.0-16.0); White Blood Count 10.5 X10*3/uL (4.8-10.8)
[2024-09-26 18:32] LABS: Alanine Aminotransferase 30 U/L (0-31); Aspartate Amino Transferase 28 U/L (5-31); C Reactive Protein 0.41 mg/dL (< or = 0.50); Estimated Glomerular Filt Rate > 60
[2024-09-26 19:09] LABS: Erythrocyte Sedimentation Rate 7 MM/HR (0-20)
== END 2024-09-26 14:07 | disposition home or self-care (01) ==
LOC: HO.HKASLDS 14:06
PROVIDERS: PCP Student in an Organized Health Care Education/Training Program; Visit Provider Internal Medicine Rheumatology
DX: M06.9 Rheumatoid arthritis, unspecified (principal); Z79.60 Long term (current) use of unspecified immunomodulators and immunosuppressants; Z79.899 Other long term (current) drug therapy; R74.01 Elevation of levels of liver transaminase levels
CPT/HCPCS: 36415; 82565; 84450; 84460; 85025; 85652; 86140; 99212

== ENCOUNTER 2024-09-26 14:06 | Outpatient (AMB) | payer MEDICARE, MEDICAID, SELFPAY ==
--- OUTSIDE RECORDS SUMMARY | 2024-09-26 14:11 | XMS_ITS | Clinical Summary ---
Author Organization [facility] Address [address] [place] [phone] Phone Care Team Providers Care Partner Manager Name Role Phone Trina Ibarra Primary Care Provider [phone] Allergies Active Allergy Reactions Criticality Noted Date Comments Iodine Anaphylaxis High 01/28/2022 Medications ALL Joy, Pen 40 mg/0.4 mL pen Inject 0.4 mL (40 mg total) under the skin every 14 (fourteen) days. 5 Active Ventolin HFA 90 mcg/actuation inhaler Inhale 2 puffs by mouth every 4 (four) hours if needed for wheezing or shortness of breath. 5 Active lisinopriL (PRINIVIL,ZESTRI L) 20 mg tablet Take 1 tablet (20 [...] Max Daily Amount: 20 mg 12 tablet Active naloxone (NARCAN) 4 mg/0.1 mL nasal sprayIndications :opioid overdose,opioid- induced respiratory depression Administer 1 each (4 mg total) into affected nostril(s) if needed for opioid reversal or respiratory depression. Give 4 mg (1 spray) into one nostril. May repeat every 2-3 minutes if needed, alternating nostrils, until medical assistance becomes available. 2 each 5 07/16/19 Active Active Problems Problem Noted Date Diagnosed Date Low back pain 07/14/2024 Encounters Date Type Department Care Team Description 07/14/2024 4:59 PM EST - 07/15/2024 4:16 PM EST Hospital Encounter [facility] [address] [place] [id number] Rios Kelly MD Jones, Christopher, MD Santoyo-Pachec o, Omar D, MD Intractable low back pain (Primary Dx); Acute midline low back pain without sciatica; Acute bilateral low back pain without sciatica Discharge Disposition: Home-Health Care [facility] from Last 3 Months Medical History Medical [...] Signed Date: 07/15/2024 10:49 ET Workstation ID: [id number] Transcribed By: Self Edit Transcribed Date: 07/15/2024 [...] Signed Date: 07/15/2024 10:49 ET Workstation ID: [id number] Transcribed By: Self Edit Transcribed Date: 07/15/2024 10:40 ET [facility] IMG MRI PROCEDURES Fin al Result * (ABNORMAL) CBC auto differential (07/15/2024 6:54 AM EST) Only the most recent of2 resultswithin the time period is included. WBC 9.4 4.8 - 10.8 K/mcL LAB HEMETOLOGY METHOD 07/15/2024 7:34 AM [facility] RBC 4.50 3.80 - 4.80 M/mcL LAB HEMETOLOGY METHOD 07/15/2024 7:34 AM [facility] Hemoglobin 13.3 11.5 - 16.0 g/dL LAB HEMETOLOGY METHOD 07/15/2024 7:34 AM [facility] Hematocrit 42.4 35.0 - 47.0 % LAB HEMETOLOGY METHOD 07/15/2024 7:34 AM [facility] MCV 95.1 79.0 - 98.0 FL LAB HEMETOLOGY METHOD 07/15/2024 7:34 AM [facility] MCH 29.8 27.0 - 32.0 pcg LAB HEMETOLOGY METHOD 07/15/2024 7:34 AM [facility] MCHC 31.4(L) 32.0 - 37.0 g/dL LAB HEMETOLOGY METHOD 07/15/2024 7:34 AM [facility] RDW 12.2 11.0 - 15.0 % LAB HEMETOLOGY METHOD 07/15/2024 7:34 AM [facility] Platelets 215 130 - 400 K/mcL LAB HEMETOLOGY METHOD 07/15/2024 7:34 AM [facility] MPV 11.8(H) 7.0 - 11.0 FL LAB HEMETOLOGY METHOD 07/15/2024 7:34 AM [facility] NRBC 0.0 <1.0 % LAB HEMETOLOGY METHOD 07/15/2024 7:34 AM [facility] NRBC Absolute 0.00 <0.10 K/mcL LAB HEMETOLOGY METHOD 07/15/2024 7:34 AM [facility] Neutrophils Relative 34.3 % LAB HEMETOLOGY METHOD 07/15/2024 7:34 AM [facility] Lymphocytes Relative 38.2 % LAB HEMETOLOGY METHOD 07/15/2024 7:34 AM [facility] Monocytes Relative 9.6 % LAB HEMETOLOGY METHOD 07/15/2024 7:34 AM [facility] Eosinophils Relative 17.0 % LAB HEMETOLOGY METHOD 07/15/2024 7:34 AM [facility] Basophils Relative 0.7 % LAB HEMETOLOGY METHOD 07/15/2024 7:34 AM [facility] Immature Granulocytes Relative 0.2 % LAB HEMETOLOGY METHOD 07/15/2024 7:34 AM [facility] Neutrophils Absolute 3.21 1.50 - 7.00 K/mcL LAB HEMETOLOGY METHOD 07/15/2024 7:34 AM [facility] Lymphocytes Absolute 3.59 1.00 - 5.00 K/mcL LAB HEMETOLOGY METHOD 07/15/2024 7:34 AM [facility] Monocytes Absolute 0.90 0.20 - 1.00 K/mcL LAB HEMETOLOGY METHOD 07/15/2024 7:34 AM [facility] Eosinophils Absolute 1.60(H) 0.00 - 0.50 K/mcL LAB HEMETOLOGY METHOD 07/15/2024 7:34 AM [facility] Basophils Absolute 0.07 0.00 - 0.20 K/mcL LAB HEMETOLOGY METHOD 07/15/2024 7:34 AM [facility] Immature Granulocytes Absolute 0.02 0.00 - 0.03 K/mcL LAB HEMETOLOGY METHOD 07/15/2024 7:34 AM EST [facility] Blood Venous blood specimen / Unknown Venipuncture / Unknown 07/15/2024 6:54 AM EST 07/15/2024 7:06 AM EST Shen Mejias MD LAB BLOOD ORDERABLES Final Result Performing Organization Address City/[facility]/ZIP Co de Phone Number [facility] [address] [place] [address], [place] [phone] * Sedimentation rate (07/15/2024 6:54 AM EST) Only the most recent of2 resultswithin the time period is included. Sed Rate 8 0 - 30 mm/hr LAB HEMETOLOGY METHOD 07/15/2024 7:25 AM EST [facility] Blood Venous blood specimen / Unknown Venipuncture / Unknown 07/15/2024 6:54 AM EST 07/15/2024 7:06 AM EST [facility] LAB BLOOD ORDERABLES Final Res ult Performing Organization Address [facility] Co de Phone Number [facility] [address] [place] [address], * (ABNORMAL) Basic metabolic panel (07/15/2024 6:54 AM EST) Only the most recent of2 resultswithin the time period is included. Sodium 140 133 - 145 mmol/L LAB CHEMISTRY METHOD 07/15/2024 7:46 AM EST [facility] Potassium 4.5 3.5 - 5.5 mmol/L LAB CHEMISTRY METHOD 07/15/2024 7:46 AM EST [facility] Chloride 111(H) 96 - 110 mmol/L LAB CHEMISTRY METHOD 07/15/2024 7:46 AM EST [facility] CO2 24 21 - 32 mmol/L LAB CHEMISTRY METHOD 07/15/2024 7:46 AM [facility] Anion Gap 5 3 - 11 LAB CHEMISTRY METHOD 07/15/2024 7:46 AM [facility] Glucose 101(H) 70 - 100 mg/dL LAB CHEMISTRY METHOD 07/15/2024 7:46 AM [facility] BUN 10 5 - 25 mg/dL LAB CHEMISTRY METHOD 07/15/2024 7:46 AM [facility] Creatinine 0.59 0.50 - 1.10 mg/dL LAB CHEMISTRY METHOD 07/15/2024 7:46 AM [facility] eGFR 100 >=60 mL/min/1. 73m2 LAB CHEMISTRY METHOD 07/15/2024 7:46 AM [facility] Comment:Calculation based on the??Chronic Kidney Disease Epidemiology Collaboration (CKD-EPI) equation refit??without adjustment for race. BUN/Creatinine Ratio 16.9 LAB CHEMISTRY METHOD 07/15/2024 7:46 AM [facility] Calcium 8.7 8.5 - 10.5 mg/dL LAB CHEMISTRY METHOD 07/15/2024 7:46 AM [facility] Blood Venous blood specimen / Unknown Venipuncture / Unknown 07/15/2024 6:54 AM EST 07/15/2024 7:06 AM EST us Shen Mejias MD LAB BLOOD ORDERABLES Final Result [facility] [address] [place] [address], * (ABNORMAL) C-reactive protein (07/14/2024 7:18 PM EST) C-Reactive Protein 0.59(H) <=0.50 mg/dL LAB CHEMISTRY METHOD 07/14/2024 8:13 PM [facility] Blood Venous blood specimen / Unknown Venipuncture / Unknown 07/14/2024 7:18 PM EST 07/14/2024 7:30 PM EST us Shen Mejias MD LAB BLOOD ORDERABLES Final Result [facility] [address] [place] [address], [place] [phone] * Thyroid stimulating hormone (07/14/2024 7:18 PM EST) Pathologist [facility] TSH 1.53 0.40 - 4.00 mcIU/mL LAB CHEMISTRY METHOD 07/14/2024 8:47 PM EST [facility] Blood Venous blood specimen / Unknown Venipuncture / Unknown 07/14/2024 7:18 PM EST 07/14/2024 7:30 PM EST us Shen Mejias MD LAB BLOOD ORDERABLES Final Result Performing Organization Address City/[facility]/ZIP Co de Phone Number [facility] [address] [place] [address], [place] [phone] * Creatine kinase and CKMB (07/14/2024 7:18 PM EST) Pathologist [facility] Total CK 72 22 - 269 unit/L LAB CHEMISTRY METHOD 07/14/2024 8:30 PM EST [facility] CK-MB 1.0 1.0 - 3.6 ng/mL LAB CHEMISTRY METHOD 07/14/2024 8:30 PM EST [facility] CK-MB Index 0.0 0.0 - 5.0 LAB CHEMISTRY METHOD 07/14/2024 8:30 PM EST [facility] Blood Venous blood specimen / Unknown Venipuncture / Unknown 07/14/2024 7:18 PM EST 07/14/2024 7:30 PM EST us Sehn Mejias MD LAB BLOOD ORDERABLES Final Result Performing Organization Address City/[facility]/ZIP Co de Phone Number [facility] [address] [place] [address], [place] [phone] * Hepatic function panel (07/14/2024 7:18 PM EST) Total Protein 7.3 6.0 - 8.0 g/dL LAB CHEMISTRY METHOD 07/14/2024 8:34 PM EST [facility] Albumin 3.5 3.2 - 5.0 g/dL LAB CHEMISTRY METHOD 07/14/2024 8:34 PM EST [facility] Total Bilirubin 0.3 0.0 - 1.4 mg/dL LAB CHEMISTRY METHOD 07/14/2024 8:34 PM [facility] Bilirubin, Direct 0.1 0.0 - 0.3 mg/dL LAB CHEMISTRY METHOD 07/14/2024 8:34 PM [facility] Bilirubin, Indirect 0.2 0.0 - 1.1 mg/dL LAB CHEMISTRY METHOD 07/14/2024 8:34 PM EST [facility] ALT (SGPT) 35 10 - 60 unit/L LAB CHEMISTRY METHOD 07/14/2024 8:34 PM [facility] AST (SGOT) 20 10 - 42 unit/L LAB CHEMISTRY METHOD 07/14/2024 8:34 PM [facility] Alkaline Phosphatase 65 42 - 121 unit/L LAB CHEMISTRY METHOD 07/14/2024 8:34 PM [facility] Blood Venous blood specimen / Unknown Venipuncture / Unknown 07/14/2024 7:18 PM EST 07/14/2024 7:30 PM EST Shen Mejias MD LAB BLOOD ORDERABLES Final Result Performing Organization Address City/[facility]/ZIP Co de Phone Number [facility] [address] [place] [address], [place] [phone] * XR Lumbar Spine 2-3 Views (07/14/2024 [...] Signed Date: 07/15/2024 10:02 ET Workstation ID: [id number] Transcribed By: Self Edit Transcribed Date: 07/15/2024 [...] Signed Date: 07/15/2024 10:02 ET Workstation ID: [id number] Transcribed By: Self Edit Transcribed Date: 07/15/2024 09:59 ET us Shen Mejias MD IMG XR PROCEDURES Final Res ult * Urinalysis with reflex microscopic and culture (07/14/2024 5:45 PM EST) Specific [place] Urine 1.009 1.003 - 1.030 LAB URINALYSIS - AUTOMATED METHOD 07/14/2024 6:23 PM [facility] pH, Urine 6.5 5.0 - 8.0 pH LAB URINALYSIS - AUTOMATED METHOD 07/14/2024 6:23 PM [facility] Leukocytes, Urine Negative Negative LAB URINALYSIS - AUTOMATED METHOD 07/14/2024 6:23 PM [facility] Nitrite, Urine Negative Negative LAB URINALYSIS - AUTOMATED METHOD 07/14/2024 6:23 PM [facility] Protein, Urine Negative <=Trace mg/dL LAB URINALYSIS - AUTOMATED METHOD 07/14/2024 6:23 PM [facility] Glucose, Urine Negative Negative mg/dL LAB URINALYSIS - AUTOMATED METHOD 07/14/2024 6:23 PM [facility] Ketones, Urine Negative Negative mg/dL LAB URINALYSIS - AUTOMATED METHOD 07/14/2024 6:23 PM [facility] Urobilinogen, Urine 1.0 0.2 - 1.0 mg/dL LAB URINALYSIS - AUTOMATED METHOD 07/14/2024 6:23 PM [facility] Bilirubin, Urine Negative Negative LAB URINALYSIS - AUTOMATED METHOD 07/14/2024 6:23 PM [facility] Blood, Urine Negative Negative LAB URINALYSIS - AUTOMATED METHOD 07/14/2024 6:23 PM [facility] Urine Urine specimen obtained by clean catch procedure / Unknown Non-blood Collection / Unknown 07/14/2024 5:45 PM EST 07/14/2024 6:16 PM EST [facility] LAB URINE ORDERABLES F inal Result [facility] [address] [place] [address], [place] [phone] * [place]o urine culture tube (07/14/2024 5:45 PM EST) Extra Tube Hold for add-ons. 07/14/2024 8:01 PM EST [facility] Comment:Auto resulted. Urine Urine specimen obtained by clean catch procedure / Unknown Non-blood Collection / Unknown 07/14/2024 5:45 PM EST 07/14/2024 6:16 PM EST [facility] LAB URINE ORDERABLES F inal Result [facility] [address] [place] [address], [place] [phone] from Last 3 Months Insurance MEDICARE MEDICAID [...] currently active code status orders. Care Teams Partner Manager Relationship Specialty Start Date End Date Trina Ibarra PA PCP - General 07/14/24
--- OUTSIDE RECORDS SUMMARY | 2024-09-26 14:11 | XMS_ITS | Clinical Summary ---
Author Organization [facility] Address [address] [place] [address] Care Team Providers Care Wet Pour Supervisor Name Role Phone Trina Ibarra PA-C Primary Care Provider [phone] Source Comments PLEASE NOTE, if this patient is a minor, it may be UNLAWFUL to discuss sensitive information that is contained in these records (such as FAMILY PLANNING, MENTAL HEALTH or SUBSTANCE ABUSE) with the minor patient's parent or other person without the patient's specific authorization.[facility] Allergies Active Allergy Reactions Criticality Noted Date Comments Iodine Anaphylaxis High 01/28/2022 Medications miscellaneous medical supply miscIndications: De Quervain's tenosynovitis, bilateral,Primar y osteoarthritis of lumbar spine,Rheumatoid arthritis involving multiple sites with positive rheumatoid factor (HCC-CMS),Primar y osteoarthritis of both knees,Trochanter ic bursitis of both hips Dispense 1 cane for ambulation . Lifetime use: Dx: Rheumatoid arthritis involving both knees with positive rheumatoid factor (HCC-CMS) [M05.761, M05.762], De Quervain's tenosynovitis, bilateral [M65.4], Primary osteoarthritis of lumbar spine [M47.816] 1 Each 022 Active compress.stockin g,knee,reg,medIn dications:Varico se veins of both lower extremities with pain 20-30 mmHg 1 Each 1 022 Active miscellaneous medical supply miscIndications: Rheumatoid arthritis involving multiple sites with positive rheumatoid factor (HCC-CMS),Primar y osteoarthritis of lumbar spine,Primary osteoarthritis of both knees by miscellaneous route once daily Rollator Adult walker. Daily use. Lifetime. 1 Each 022 Active HUMIRA,CF, PEN 40 mg/0.4 mL pnkt 023 Active hydrOXYzine HCL (ATARAX) 25 mg tabletIndication s:Primary insomnia Take 1 Tablet by mouth 3 (three) times daily as needed for anxiety or sleep 90 Tablet 1 023 Active acetaminophen (TYLENOL 8 HOUR) 650 mg CR tabletIndication s:Chronic pain of left knee Take 1 Tablet by mouth every 8 (eight) hours as needed for pain 90 Tablet 1 023 Active ibuprofen 600 mg tabletIndication s:Pain of right heel,Plantar fasciitis of right foot TAKE 1 TABLET BY MOUTH 4 TIMES DAILY NEEDED FOR PAIN. 10 Tablet 024 Active blood pressure monitorIndicatio ns:hypertension Dispense one automated BP monitor, to be used daily and prn, length of need 99 years Indications: high blood pressure 1 Kit 1 024 Active simvastatin (ZOCOR) 5 mg tabletIndication s:Hyperlipidemia , unspecified hyperlipidemia type TAKE 1 TABLET BY MOUTH NIGHTLY AT BEDTIME^1R4 30 Tablet 5 024 Active gabapentin (NEURONTIN) 100 mg capsuleIndicatio ns:Chronic pain syndrome,Fibromy algia,Rheumatoid arthritis involving multiple sites with positive rheumatoid factor ([facility]) TAKE TWO CAPSULES BY MOUTH THREE TIMES A DAY ^2R1,2R2,2R4 180 Capsule 1 025 Active omeprazole (PRILOSEC) [address] capsuleIndicatio ns:Gastroesophag eal reflux disease without esophagitis TAKE ONE CAPSULE BY MOUTH EVERY MORNING BEFORE BREAKFAST ^1R1 30 Capsule 3 025 Active lidocaine (LIDODERM) 5 % patchIndications :Pain of left lower extremity PLACE ONE PATCH TOPICALLY TO CLEAN/DRY/HAIRLE SS SKIN WHERE MOST PAINFUL ONCE DAILY (EVERY 24 HOURS) AND LEAVE ON FOR 12 HOURS. REMOVE AND WAIT 12 HOURS BEFORE PUTTING ON A NEW PATCH (BULK) 30 Patch 1 025 Active cyanocobalamin (VITAMIN B-12) 1,000 mcg tabletIndication s:B12 deficiency TAKE ONE TABLET BY MOUTH EVERY DAY ^1R1 30 Tablet 3 025 Active MISCELLANEOUS MEDICAL SUPPLY MISCIndications: JAYASHREE (obstructive sleep apnea) CPAP MACHINE PARTS - MASK AND HOSE. 1 Each 025 Active fluticasone (FLONASE) 50 mcg/actuation nasal sprayIndications :Nasal congestion USE 1 SPRAY IN EACH NOSTRIL ONCE DAILY (BULK) 16 g 025 Active lisinopriL 20 mg tabletIndication s:Hypertension, unspecified type TAKE ONE TABLET BY MOUTH EVERY DAY ^1R1 30 Tablet 2 025 Active cetirizine (ZYRTEC) 10 mg tabletIndication s:Dry cough TAKE ONE TABLET BY MOUTH EVERY DAY ^1R1 30 Tablet 2 025 Active VENTOLIN HFA 90 mcg/actuation inhalerIndicatio ns:Mild intermittent asthma without complication ([facility]) INHALE TWO PUFFS BY MOUTH EVERY 4 TO 6 HOURS NEEDED FOR SHORTNESS OF BREATH (BULK) 18 g 1 025 Active diclofenac sodium (VOLTAREN) 1 % gelIndications:A cute right-sided low back pain without sciatica APPLY 2 GRAM(S) TOPICALLY TO AFFECTED AREA(S) TWO TIMES A DAY (BULK) 100 g 025 Active MISCELLANEOUS MEDICAL SUPPLY MISCIndications: De Quervain's tenosynovitis, bilateral,Primar y osteoarthritis of lumbar spine,Rheumatoid arthritis involving multiple sites with positive rheumatoid factor (HCC-CMS),Primar y osteoarthritis of both knees,Trochanter ic bursitis of both hips Dispense 1 shower bench . Lifetime use: Dx: Rheumatoid arthritis involving both knees with positive rheumatoid factor (HCC-CMS) [M05.761, M05.762], De Quervain's tenosynovitis, bilateral [M65.4], Primary osteoarthritis of lumbar spine [M47.816] 1 Each 025 Active miscellaneous medical supply miscIndications: De Quervain's tenosynovitis, bilateral,Primar y osteoarthritis of lumbar spine,Rheumatoid arthritis involving multiple sites with positive rheumatoid factor (HCC-CMS),Primar y osteoarthritis of both knees,Trochanter ic bursitis of both hips Dispense 1 shower bench . Lifetime use: Dx: Rheumatoid arthritis involving both knees with positive rheumatoid factor (HCC-CMS) [M05.761, M05.762], De Quervain's tenosynovitis, bilateral [M65.4], Primary osteoarthritis of lumbar spine [M47.816] 1 Each 022 2024 Discontinued(R eorder (E-Cancel Not Sent)) VENTOLIN HFA 90 mcg/actuation inhalerIndicatio ns:Mild intermittent asthma without complication ([facility]-HCC) INHALE TWO PUFFS BY MOUTH EVERY 4 TO 6 HOURS NEEDED FOR SHORTNESS OF BREATH (BULK) 18 g 1 025 2024 Discontinued diclofenac sodium (VOLTAREN) 1 % gelIndications:A cute right-sided low back pain without sciatica APPLY 2 GRAMS TOPICALLY TO AFFECTED AREA(S) TWO TIMES A DAY (BULK) 100 g 025 2024 Discontinued Active Problems Problem Noted Date Diagnosed Date Acute on chronic low back pain 07/23/2024 Overview (07/23/2024): [facility] Ed Admission Date 07/14/2024 Discharge Date [...] 05/30/2024 Overview (05/30/2024): Certificate of blindness - [facility] - Registration #[id number] - Date issue 11/14/2019 Fibromyalgia 04/27/2024 Osteoarthritis [...] BI-RADS: 2 (Benign) 05/08/2024 - Mammogram - [facility] - Impression: No mammographic evidence of malignancy. Recommendation: annual mammographic screening. BI-RADS: 2( Benign) Varicose veins of both lower extremities with pa in 01/29/2022 Rheumatoid arthritis involvi ng multiple sites with positive rheumatoid factor ([facility]) 11/17/2021 Overview (03/17/2024): 03/13/2024 - Arthritis treatment center - Localized cervical osteoarthritis, Localized lumbar osteoarthritis, Seropositive rheumatoid arthritis being managed with biologic therapy. - Meloxicam 7.5 mg tablet once daily - f/u with Dr. Reina De Quershan's tenosynovitis, bilateral 2 Primary osteoarthritis of lumbar spine 2 Primary osteoarthritis of both knees 11/17/2021 Trochanteric bursitis of both hips 11/17/2021 Other insomnia 02/05/2020 Pain in joint, multiple sites 02/05/2020 Mild asthma ([facility]) 10/19/2018 Encounters Date Type Department Care Team Description 08/28/2024 Results Follow-Up [facility] [address] [place] [address] Trina Ibarra PA-C 07/23/2024 1:20 PM EDT Telemedicine Visit [facility] [address] [place] [address] Trina Ibarra PA-C [facility] discharge follow-up (Primary Dx); Acute on chronic low back pain from Last 3 Months Immunizations Immunization Administration Dates Next Due PNEUMOCOCCAL POLYSACCHARIDE PPV23 (Pneumovax 23) 02/25/2023 TDAP 02/22/2020 ZOSTER VACCINE, RECOMBINANT (SHINGRIX) [...] Health Maintenance Due Date Last Done Comments CT Colonography 2004 Colonoscopy 2004 Flexible Sigmoidoscopy 2004 [id number] (3 - Moderna ri sk series) 09/18/2020 08/21/2020, 07/25/2020 Imm-Zoster, Recombinant (2 of 2) 04/22/2023 02/26/20 Imm-Influenza (#1) 2024 Imm-Pneumococcal 65+ (2 of 2 - PCV) 02/26/2024 02/25/2023 Bone Density Screening 2024 Falls Prevention 2024 Tobacco Screening 01/02/2025 01/03/2024, 01/28/2022 Lipid Screening 04/28/2025 04/28/2024, 02/13, 10/01/2022, Additional history exists Annual Preventive Care Visit 06/19/202508/2024, 06/19/2024, 02/25/2023, Additional history exists Anxiety Screening 06/19/2025 06/19/2024 Medicare Annual Wellness Visit 06/19/2025 0 06/19/2024, 02/25/2023, 01/28/2022, Additional history exists Diabetes Screening 07/15/2025 07/15/2024, 0 07/14/2024, 04/28/2024, Additional history exists FIT/gFOBT 08/07/2025 08/07/2024 Breast Cancer Screening (Mammogram) 05/08/2026 05/08/2024, 05/06/2023, 05/04/2021, Additional history exists Fecal DNA 08/14/2027 08/13/2024, 08/07/2024 Imm-DTaP/Tdap/Td (2 - Td or Tdap) 02/21/2030 020 Hepatitis C Screening Completed 10/19/2018 HIV Screening Completed 02/05/2020, 10/19/2018 Alcohol and Drug Screen Completed 06/19/19, 06/13/2023, 09/29/2022, Additional history exists Depression Annual Screen Completed 06/19/2024 Colorectal Cancer Screening Discontinued Procedures Procedure Name Priority Date/Time Associated Diagnosis Comments OTHER ORDERS SCANNED DOCUMENT 09/12/2024 3:00 AM EDT OTHER ORDERS SCANNED DOCUMENT 09/12/2024 3:00 AM EDT LAB SCANNED DOCUMENT 08/08/2024 3:00 AM EDT LAB SCANNED DOCUMENT 08/08/2024 3:00 AM EDT COLOGUARD Routine 08/07/2024 3:00 AM EDT Annual physical exam OTHER ORDERS SCANNED DOCUMENT 07/26/2024 3:00 AM EDT OTHER ORDERS SCANNED DOCUMENT 07/16/2024 3:00 AM EST HISTORIC MAMMOGRAM 05/08/2024 3: [...] Recently Relevant to Health Maintenance Results * OTHER ORDERS SCANNED DOCUMENT (09/12/2024 3:00 AM EDT) Only the most recent of4 resultswithin the time period is included. 09/12/2024 3:00 AM EDT us Trina Ibarra PA-C SCAN OTHER ORDERS Final Res ult * LAB SCANNED DOCUMENT (08/08/2024 3:00 AM EDT) Only the most recent of2 resultswithin the time period is included. 08/08/2024 3:00 AM EDT us Trina Ibarra PA-C SCAN LAB Final Resul t * COLOGUARD (08/07/2024 3:00 AM EDT) Stool Stool specimen / Unknown 08/07/2024 3:00 AM EDT us Trina Ibarra PA-C LAB - NO BLOOD DRAW Final R esult [facility] [address], [address] [facility] [id number] [place] [address], [place] [phone] * HISTORIC MAMMOGRAM (05/08/2024 3:00 AM EST) 05/08/2024 3:00 AM EST us Trina Ibarra PA-C IMG MAMMO Final Resul t * (ABNORMAL) LIPID PANEL (04/28/2024 9:41 AM EST) CHOLESTEROL, TOTAL 160 <200 mg/dL [facility] HDL CHOLESTEROL 46(L) > OR = 50 mg/dL [facility] TRIGLYCERIDES 107 <150 mg/dL [facility] LDL-CHOLESTEROL 94 99 mg/dL (calc) [facility] Comment: Reference range: <100 Desirable range <100 mg/dL for primary prevention; ?? <70 mg/dL for patients with CHD or diabetic patients with > or = 2 CHD risk factors. LDL-C is now calculated using the Lester-Elmer calculation, which is a validated novel method providing better accuracy than the Friedewald equation in the estimation of LDL-C. Lester SS et al. SHERRY. 2013;310(19): 9665-0425 (http://education.Tucker Blair/faq/PXB578) CHOL/HDLC RATIO 3.5 <5.0 (calc) [employer] [facility] NON-HDL CHOLESTEROL 114 <130 mg/dL (calc) [facility] Comment: For patients with diabetes plus 1 major ASCVD risk factor, treating to a non-HDL-C goal of <100 mg/dL (LDL-C of <70 mg/dL) is considered a therapeutic option. Blood Blood / Unknown 04/28/2024 9 :41 AM EST 04/28/2024 9:41 AM EST Narrative [employer] [facility] - 04/29/2024 5:31 AM EST FASTING:NO us Trina Ibarra PA-C LAB - BLOOD DRAW Final Resu lt POS on [facility] [address] [address], [facility] [address] [address] [address] * COMPREHENSIVE METABOLIC PANEL (04/28/2024 9:41 AM EST) GLUCOSE 123 65 - 139 mg/dL [facility] Comment: ?Non-fasting reference interval UREA NITROGEN (BUN) 14 7 - 25 mg/dL [facility] CREATININE (blood) 0.63 0.50 - 1.05 mg/dL [facility] EGFR 99 > OR = 60 mL/min/1. 73m2 [facility] BUN/CREATININE RATIO SEE NOTE: [facility] Comment: ?? Not Reported: BUN and Creatinine are within ?? reference range. ? SODIUM 142 135 - 146 mmol/L [facility] POTASSIUM 4.4 3.5 - 5.3 mmol/L [facility] CHLORIDE 106 98 - 110 mmol/L [facility] CARBON DIOXIDE 31 20 - 32 mmol/L [facility] CALCIUM 9.0 8.6 - 10.4 mg/dL [facility] PROTEIN, TOTAL 7.4 6.1 - 8.1 g/dL [facility] ALBUMIN 4.2 3.6 - 5.1 g/dL [facility] GLOBULIN 3.2 1.9 - 3.7 g/dL (calc) [facility] ALBUMIN/GLOBULI N RATIO 1.3 1.0 - 2.5 (calc) [facility] BILIRUBIN, TOTAL 0.5 0.2 - 1.2 mg/dL [facility] ALKALINE PHOSPHATASE 64 37 - 153 U/L [facility] AST 15 10 - 35 U/L [facility] ALT 17 6 - 29 U/L [facility] Blood Blood / Unknown 04/28/2024 9 :41 AM EST 04/28/2024 9:41 AM EST Narrative [facility] - 04/29/2024 5:31 AM EST FASTING:NO us Trina Ibarra PA-C LAB - BLOOD DRAW Final Resu lt [facility] [address] [address], [facility] [address] [place] [address] * HIV-1 & HIV-2 ANTIBODIES (02/05/2020 10:53 AM EDT) HIV 1 AND 2 ANTIBODY SCREEN NEGATIVE NEGATIVE [facility] Comment: This assay is a [...] 10:53 AM EDT 02/05/2020 4:46 PM EDT [facility] - 02/05/2020 6:59 PM EDT [facility], [place] [address] Chief Client Officer - Summer Mark MD PT ID [id number] ORD# [id number] [facility] - [place] [address], * (ABNORMAL) HEPATITIS A,B,C PANEL (10/19/2018 10:16 AM EDT) HEPATITIS B SURFACE ANTIBODY NEGATIVE NEGATIVE [facility] HEPATITIS B SURFACE ANTIGEN NEGATIVE NEGATIVE [facility] Comment: Over the counter supplements containing high doses of biotin may interfere with this assay. ??If interference is suspected, patients shoud be retested after refraining from biotin supplements for 72 hours. HEPATITIS C VIRUS DIAGNOSTIC NEGATIVE NEGATIVE [facility] HEPATITIS A ANTIBODY TOTAL POSITIVE(A) NEGATIVE [facility] Comment: Over the counter supplements containing high doses of biotin may interfere with this assay. ??If interference is suspected, patients shoud be retested after refraining from biotin supplements for 72 hours. HEPATITIS B CORE ANTIBODY NEGATIVE NEGATIVE [facility] Blood specimen (specimen) Blood / Unknown 10/19/2018 10:16 AM EDT 10/19/2018 5:03 PM EDT Narrative [facility] - 10/19/2018 6:24 PM EDT [facility], a member of [address] [address] Chief Client Officer - Brittni Cash MD PT ID [id number] ORD# [id number] Bola Magana NP LAB - BLOOD DRAW Edited Result - Final [facility] [address] [place] [address], from Last 3 Months or Most Recently Relevant to Health Maintenance [place] Care Teams Wet Pour Supervisor Relationship Specialty Start Date End Date Trina Ibarra PA-C [address] [place] [address] PCP - General Primary Care 02/23/23
--- NOTE | 2024-09-26 14:15 | A.OFFVIS_ITS ---
Vital Signs 09/26/24 14:16 Height 5 ft 2 in Weight 188 lb 14.978 oz BMI 34.6 BP 120/80 Blood Pressure Location Rt brachial Position Sitting Pulse 83 Pulse Source Pulse Oximeter Pulse Oximetry (%) 96 Oxygen Delivery Method Room Air Intake Visit Reasons: discuss medication Intake Note: Patient presents today for follow up on RA. 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 We are appealing insurance decision. She did not find benefit with prednisone course. Since being off of Humira for the last 2 months she has had progression with not being able to get up out of bed and requiring assistance from son and daughter for ADLs and cooking her food. She has not been eating because she does not feel like preparing the food for herself and depends on her children to come home. She has lost weight 5 lbs because of this. She has increased swelling in her hands and wrists. She wears compression gloves to help reduce pain. [facility] Medical History Chronic GERD Legally blind Asthma Rheumatoid arthritis Surgical History H/O knee surgery Family History Mother Cardiovascular disease Father Pulmonary emphysema Social History Alcohol intake: never Patient Tobacco Use Status: Never used Tobacco Physical Exam Vital Signs: Last Vital Signs Pulse 83 09/26/24 14:16 BP 120/80 09/26/24 14:16 Pulse Ox 96 09/26/24 14:16 Oxygen Delivery Method Room Air 09/26/24 14:16 BMI result Body Mass Index 34.6 Const Other: General: Comfortable CVS: RRR Respiratory: clear to auscultation bilaterally. Good respiratory effort Skin: No lesions seen MSK: She has synovitis of right 3rd PIP, right wrist, left 3rd and 5th MCP. Tender bilateral MCPs, PIP, wrists, elbows and shoulders. Tender bilateral ankles and MTPs. Shoulder abduction is 160 degrees bilateral with normal internal rotation but limited full external rotation. Bilateral Knee flexion is 30 degrees due to pain. Assessment & Plan Assessment & Plan (1) Rheumatoid arthritis: Comment: Progression of inflammatory arthritis off of Humira contributing to loss of function and dependence on her children for ADLs. She has lost weight. CDAI 48 high disease activity. She has recognized that since being off of Humira rheumatoid arthritis has worsened. Her secondary insurance will not approve Humira despite appeal. We are in the process of a 2nd appeal. She had mild transaminitis on labs from July of unclear etiology. Treatment with TNF inhibitor is indicated. I discussed next steps with considering an alternative TNF inhibitor such as Enbrel. Discussed side effects, benefits and drug monitoring. I will obtain labs prior to starting new DMARD when it is approved. Rheumatology history: +CPP >250, rheumatoid factor. Erosive inflammatory arthritis involving left foot 1st distal phalanx. MTX 11/2020-02/2022 patient discontinued due to hair loss. Partial response to sulfasalazine and hydroxychloroquine 04/2022. On Humira 2020-07/2024 insurance denied medication. Code(s): M06.9 - Rheumatoid arthritis, unspecified Category: Medical Qualifiers: Rheumatoid factor presence: with rheumatoid factor Plan: Enbrel PA Longer prednisone course prescribed. If she does not find benefit on prednisone course, patient's son will call office. Patient will then be scheduled for nurse visit for Depo-Medrol IM 120 mg. Baseline labs ordered prior to starting new TNF inhibitor. She will then be scheduled for nurse teaching visit. She will need labs 1 month after starting new TNF inhibitor: CBC, creatinine, AST, ALT. PCP follow-up for fibromyalgia management. Consider up titration of gabapentin as she tolerates. Consider combination therapy with duloxetine, amitriptyline, or Savella to better control pain from fibromyalgia Return to clinic in 3 months (2) Other retirement (current) drug therapy: Code(s): Z79.899 - Other retirement (current) drug therapy Category: Medical Plan: See above (3) Transaminitis: Code(s): R74.01 - Elevation of levels of liver transaminase levels Category: Medical Plan: See above Orders: Orders Alanine Aminotransferase Today Z79.60 - nursing home (current) use of unspecified immunomodulators and immunosuppressants Complete Blood Count Auto Diff Today Z79.60 - nursing home (current) use of unspecified immunomodulators and immunosuppressants Aspartate Amino Transferase Today Z79.60 - rn lactation (current) use of unspecified immunomodulators and immunosuppressants C Reactive Protein Today Z79.899 - Other cost control analyst (current) drug therapy Creatinine Today Z79.60 - nursing home (current) use of unspecified immunomodulators and immunosuppressants Erythrocyte Sedimentation Rate Today Z79.899 - Other retirement (current) drug therapy Rheumatoid Factor Today M06.9 - Rheumatoid arthritis, unspecified Medications: Changed From prednisone Take 4 tablets daily 5 days, 3 tablets daily 5 days, 2 tablets daily 5 days, 1 tablet daily 5 days then stop. Take prednisone with food. 5 mg PO DIRECTED 50 tabs 0RF To prednisone Take 4 tablets daily 14 days, 3 tablets daily 7 days, 2 tablets daily days, 1 tablet daily 7 days then stop. Take prednisone with food. 5 mg PO DIRECTED 98 tabs 0RF Coding Level of Care Code Est Pt Level 4 (18308) Complex EM visit Add On G2211 Diagnoses Rheumatoid arthritis M06.9 Rheumatoid factor presence: with rheumatoid factor Other retirement (current) drug therapy Z79.899 Transaminitis R74.01
[2024-09-26 14:16] VITALS: BP 120/80; PULSE 83; O2SAT 96; BMI 34.6
== END 2024-09-26 15:05 | disposition home or self-care (01) ==
LOC: HO.RHES 14:06
PROVIDERS: PCP Student in an Organized Health Care Education/Training Program; Visit Provider Internal Medicine Rheumatology
DX: M06.9 Rheumatoid arthritis, unspecified (principal); Z79.899 Other long term (current) drug therapy; R74.01 Elevation of levels of liver transaminase levels
CPT/HCPCS: 99214; G2211

== ENCOUNTER → 2024-10-09 09:15 | Outpatient (BNVA) | payer MEDICARE, MEDICAID, SELFPAY | PROVIDERS: PCP Student in an Organized Health Care Education/Training Program; Visit Provider Internal Medicine Rheumatology ==

== ENCOUNTER 2024-11-22 12:45 | Outpatient (REF) | payer OTHER, SELFPAY ==
[2024-11-22 17:58] LABS: Alanine Aminotransferase 37 U/L (0-31); Aspartate Amino Transferase 39 U/L (5-31); Estimated Glomerular Filt Rate > 60
[2024-11-22 18:03] LABS: Baso%MD 0.6 %; Eos%MD 5.9 %; Hematocrit 42.5 % (37.0-47.0); Hemoglobin 13.6 g/dl (12.0-16.0); IG%MD 0.3 %; Lymph%MD 37.9 %; Mean Corpuscular HGB Conc 32.0 g/dl (31.0-35.0); Mean Corpuscular Hemoglobin 29.3 pg (27.0-33.0); Mean Corpuscular Volume 91.6 fL (80.0-98.0); Mono%MD 9.2 %; NRBC Abs Auto 0.000 X10*3/uL (0.0-0.012); NRBC Pct Auto 0.0 /100WBC (0.0-0.2); Neut%MD 46.1 %; Platelet Count 264 X10*3/uL (160-400); Red Blood Count 4.64 X10*6/uL (4.20-5.50); White Blood Count 10.6 X10*3/uL (4.8-10.8)
[2024-11-22 22:35] LABS: Atypical Lymph Absolute Manual 0.1 x10*3/uL; Atypical Lymphs Percent Manual 1 % (0-6); Basophils Abs Manual 0.2 X10*3/uL (0.0-0.2); Basophils Percent Manual 2 % (0-2); Eosinophils Absolute Manual 1.0 X10*3/uL (0.0-0.4); Eosinophils Percent Manual 9 % (0-4); Lymphocytes Absolute Manual 5.1 X10*3/uL (1.2-4.9); Lymphocytes Percent Manual 48 % (20-40); Monocytes Absolute Manual 0.4 X10*3/uL (0.1-1.2); Monocytes Percent Manual 4 % (2-11); Neutrophils Percent Manual 36 % (45-73); RBC Morphology NORMAL
[2024-11-22 22:37] LABS: Band Neutrophils Percent 0 % (3-5); Neutrophils Absolute Manual 3.8 X10*3/uL (2.0-8.3)
== END 2024-11-22 12:46 | disposition home or self-care (01) ==
LOC: HO.HKASLDS 12:45
PROVIDERS: PCP Student in an Organized Health Care Education/Training Program; Visit Provider Internal Medicine Rheumatology
DX: M06.9 Rheumatoid arthritis, unspecified (principal); Z79.899 Other long term (current) drug therapy
CPT/HCPCS: 36415; 82565; 84450; 84460; 85007; 85027; 85652; 86140; 86431; 99212

== ENCOUNTER 2024-11-22 12:45 | Outpatient (AMB) | payer MEDICARE, MEDICAID, SELFPAY ==
--- OUTSIDE RECORDS SUMMARY | 2024-11-22 12:49 | XMS_ITS | Clinical Summary ---
Author Organization [facility] Address [address] [place] [address] Care Team Providers Care Radio Despatcher Name Role Phone Trina Ibarra PA-C Primary Care Provider [phone] Source Comments PLEASE NOTE, if this patient [...] involving multiple sites with positive rheumatoid factor (CMS & HHS-HCC),Primary osteoarthritis of both knees,Trochanteri c bursitis of both hips Dispense 1 cane for ambulation . Lifetime use: Dx: Rheumatoid arthritis involving both knees with positive rheumatoid factor ([facility]) [M05.761, M05.762], De Quervain's tenosynovitis, bilateral [M65.4], Primary osteoarthritis of lumbar spine [M47.816] 1 Each 022 Active compress.stocking ,knee,reg,medIndi cations:Varicose veins of both lower extremities with pain 20-30 mmHg 1 Each 1 022 Active miscellaneous medical supply miscIndications:R heumatoid arthritis involving multiple sites with positive rheumatoid factor (CMS & HHS-HCC),Primary osteoarthritis of lumbar spine,Primary osteoarthritis of both [...] blood pressure 1 Kit 1 024 Active gabapentin (NEURONTIN) 100 mg capsuleIndication s:Chronic pain syndrome,Fibromya lgia,Rheumatoid arthritis involving multiple sites with positive rheumatoid factor ([facility] & HHS-HCC) TAKE TWO CAPSULES BY MOUTH THREE TIMES A DAY ^2R1,2R2,2R4 180 Capsule 1 025 Active lidocaine (LIDODERM) 5 % patchIndications: Pain of left lower extremity PLACE ONE PATCH TOPICALLY TO CLEAN/DRY/HAIRLE SS SKIN WHERE MOST PAINFUL ONCE DAILY (EVERY 24 HOURS) AND LEAVE ON FOR 12 HOURS. REMOVE AND WAIT 12 HOURS BEFORE PUTTING ON A NEW PATCH (BULK) 30 Patch 1 025 Active MISCELLANEOUS MEDICAL SUPPLY MISCIndications:O SA (obstructive sleep apnea) CPAP MACHINE PARTS - MASK AND HOSE. 1 Each 025 Active MISCELLANEOUS MEDICAL SUPPLY MISCIndications:D e Quervain's tenosynovitis, bilateral,Primary osteoarthritis of lumbar spine,Rheumatoid arthritis involving multiple sites with positive rheumatoid factor (CMS & HHS-HCC),Primary osteoarthritis of both knees,Trochanteri c bursitis of both hips Dispense 1 shower bench . Lifetime use: Dx: Rheumatoid arthritis involving both knees with positive rheumatoid factor ([facility]) [M05.761, M05.762], De Quervain's tenosynovitis, bilateral [M65.4], Primary osteoarthritis of lumbar spine [M47.816] 1 Each 025 Active fluticasone (FLONASE) 50 mcg/actuation nasal sprayIndications: Nasal congestion USE 1 SPRAY IN EACH NOSTRIL ONCE DAILY (BULK) 16 g 025 Active omeprazole (PRILOSEC) [address] capsuleIndication s:Gastroesophagea l reflux disease without esophagitis TAKE ONE CAPSULE BY MOUTH EVERY MORNING BEFORE BREAKFAST ^1R1 30 Capsule 3 025 Active cyanocobalamin (VITAMIN B-12) 1,000 mcg tabletIndications :B12 deficiency TAKE ONE TABLET BY MOUTH EVERY DAY ^1R1 30 Tablet 3 025 Active simvastatin (ZOCOR) 5 mg tabletIndications :Hyperlipidemia, unspecified hyperlipidemia type TAKE ONE TABLET BY MOUTH EVERY EVENING AT BEDTIME ^1R4 30 Tablet 5 025 Active lisinopriL 20 mg tabletIndications :Hypertension, unspecified type TAKE ONE TABLET BY MOUTH EVERY DAY ^1R1 30 Tablet 2 025 Active diclofenac sodium (VOLTAREN) 1 % gelIndications:Ac [place] right-sided low back pain without sciatica APPLY 2 GRAMS TOPICALLY TO THE AFFECTED AREA(S) TWO TIMES A DAY (BULK) 100 g 025 Active cetirizine (ZYRTEC) 10 mg tabletIndications :Dry cough TAKE ONE TABLET BY MOUTH EVERY DAY ^1R1 30 Tablet 2 025 Active VENTOLIN HFA 90 mcg/actuation inhalerIndication s:Mild intermittent asthma without complication ([facility]) INHALE TWO PUFFS BY MOUTH EVERY 4 TO 6 HOURS NEEDED FOR SHORTNESS OF BREATH (BULK) 18 g 1 025 Active simvastatin (ZOCOR) 5 mg tabletIndications :Hyperlipidemia, unspecified hyperlipidemia type TAKE 1 TABLET BY MOUTH NIGHTLY AT BEDTIME^1R4 30 Tablet 5 024 2024 Discontinued cyanocobalamin (VITAMIN B-12) 1,000 mcg tabletIndications :B12 deficiency TAKE ONE TABLET BY MOUTH EVERY DAY ^1R1 30 Tablet 3 025 2024 Discontinued lisinopriL 20 mg tabletIndications :Hypertension, unspecified type TAKE ONE TABLET BY MOUTH EVERY DAY ^1R1 30 Tablet 2 025 06/13/ 2025 Discontinued cetirizine (ZYRTEC) 10 mg tabletIndications :Dry cough TAKE ONE TABLET BY MOUTH EVERY DAY ^1R1 30 Tablet 2 025 2024 Discontinued VENTOLIN HFA 90 mcg/actuation inhalerIndication s:Mild intermittent asthma without complication (HHS-HCC) INHALE TWO PUFFS BY MOUTH EVERY 4 TO 6 HOURS NEEDED FOR SHORTNESS OF BREATH (BULK) 18 g 1 025 2024 Discontinued diclofenac sodium (VOLTAREN) 1 % gelIndications:Ac chevak right-sided low back pain without sciatica APPLY 2 GRAMS TOPICALLY TO THE AFFECTED AREA(S) TWO TIMES A DAY (BULK) 100 g 025 2024 Discontinued Active Problems Problem Noted Date Diagnosed Date Acute on chronic low back pain 07/23/2024 Overview (07/23/2024): [facility] Ed Admission Date 07/14/2024 Discharge Date [...] - [facility] - Registration #[id number] - Date issue 11/14/2019 Fibromyalgia 04/27/2024 Osteoarthritis [...] BI-RADS: 2 (Benign) 05/08/2024 - Mammogram - [facility] - Impression: No mammographic evidence of malignancy. Recommendation: annual mammographic screening. BI-RADS: 2( Benign) Varicose veins of both lower extremities with pa in 01/29/2022 Rheumatoid arthritis involvi ng multiple sites with positive rheumatoid factor ([facility]-H[facility]) 11/17/2021 Overview (03/17/2024): 03/13/2024 - Arthritis treatment [...] in joint, multiple sites 02/05/2020 Mild asthma ([facility]) 10/19/2018 Encounters Date Type Department Care Team Description 08/28/2024 Results Follow-Up [facility] [address] [place] [address] Trina Ibarra PA-C from Last 3 Months Immunizations Immunization Administration [...] e alcohol) Social Connections Answer Date Recorded How often do you feel lonely or isolated from th ose around you? 1 06/19/2024 Financial Resource Strain Answer Date R ecorded Hard to pay for: Food 1 06/19/2024 Stress Answer Date Recorded Do you feel these kinds of stress these days? 1 06/19/2024 Physical Activity Answer Date Recorded Physical Activity 0 01/08/2019 Food Insecurity Answer Date Recorded Hard to pay for: Food 1 06/19/2024 Transportation Needs Answer Date Record ed Hard to pay for: Transportation 1 06/19/2024 Housing Stability Answer Date Recorded Hard to pay for: Rent/Mortgage payment 1 06/19/2024 Safety and Environment Answer Date Andrey rded Safety 0 01/08/2019 Utilities Answer Date Recorded Hard to pay for: Utilities 1 06/19 Employment Answer Date Recorded Stress 0 02/04/2024 [...] 84 06/19/2024 1:54 PM EST Temperature 36.7 C (98 F) 06/19/2024 1:54 PM EST Respiratory Rate 16 06/19/2024 1:54 PM EST Oxygen Saturation 98% 06/19/2024 1:54 PM EST Inhaled Oxygen Concentration - - Weight 87.1 kg (192 lb) 06/19/2024 1:54 PM EST Height 162.6 cm (5' 4 ) 06/19/2024 1:54 PM EST Body Mass Index 32.96 06/19/2024 1:54 PM EST Plan of Treatment Health Maintenance Due Date Last Done Comments Medicare Annual Wellness Visit 1977 CT Colonography 2004 Colonoscopy 2004 Flexible Sigmoidoscopy 2004 [id number] (3 - Moderna ri sk series) 09/18/2020 08/21/2020, 07/25/2020 Imm-Zoster, Recombinant (2 of 2) 04/22/2023 02/26/20 Imm-Pneumococcal 50+ (2 of 2 - PCV) 02/26/2024 02/25/2023 Bone Density Screening 2024 Falls Prevention 2024 Tobacco Screening 01/02/2025 01/03/2024, 01/28/2022 Imm-Influenza (#1) 2025 Lipid Screening 04/28/2025 04/28/2024, 02/13, 10/01/2022, Additional history exists Annual Wellness (Adult): Indicated (All Coverage) 06/19/2025 06/19/2024, 06/19/2024, 02/25/2023, Additional history exists Anxiety Screening 06/19/2025 06/19/2024 Diabetes Screening 07/15/2025 07/15/2024, 0 07/14/2024, 04/28/2024, [...] Associated Diagnosis Comments OTHER ORDERS SCANNED DOCUMENT 11/08/2024 3:00 AM EDT OTHER ORDERS SCANNED DOCUMENT 11/01/2024 3:00 AM EDT OTHER ORDERS SCANNED DOCUMENT 09/12/2024 3:00 AM EDT OTHER ORDERS SCANNED DOCUMENT 09/12/2024 3:00 AM EDT COLOGUARD Routine 08/07/2024 3:00 AM EDT Annual physical exam HISTORIC MAMMOGRAM 05/08/2024 3: 00 AM EST [...] Maintenance Results * OTHER ORDERS SCANNED DOCUMENT (11/08/2024 3:00 AM EDT) Only the most recent of4 resultswithin the time period is included. 11/08/2024 3:00 AM EDT us Trina Ibarra PA-C SCAN OTHER ORDERS Final Res ult * COLOGUARD (08/07/2024 3:00 AM EDT) Stool Stool specimen / Unknown 08/07/2024 3:00 AM EDT us Trina Ibarra PA-C LAB BODY FLUIDS AND STOOLS AMBULATORY Final Result [facility] [address], [address] [facility] [id number] [place] [id number], * HISTORIC MAMMOGRAM (05/08/2024 3:00 AM EST) 05/08/2024 3:00 AM EST us Trina Ibarra PA-C IMG MAMMO Final Resul t * (ABNORMAL) LIPID PANEL (04/28/2024 9:41 AM EST) CHOLESTEROL, TOTAL 160 <200 mg/dL [facility] HDL CHOLESTEROL 46(L) > OR = 50 mg/dL [facility] TRIGLYCERIDES 107 <150 mg/dL [facility] LDL-CHOLESTEROL 94 99 mg/dL (calc) [facility] Comment: Reference range: <100 Desirable range <100 mg/dL for primary prevention; <70 mg/dL for patients with CHD or diabetic patients with > or = 2 CHD risk factors. LDL-C is now calculated using the Lien calculation, which is a validated novel method providing better accuracy than the Friedewald equation in the estimation of LDL-C. Lester SS et al. SHERRY. 2013;310(19): 8860-5536 (http://education.[employer]/faq/HLP889) CHOL/HDLC RATIO 3.5 <5.0 (calc) [facility] NON-HDL CHOLESTEROL 114 <130 mg/dL (calc) [facility] Comment: For patients with diabetes plus 1 major ASCVD risk factor, treating to a non-HDL-C goal of <100 mg/dL (LDL-C of <70 mg/dL) is considered a therapeutic option. Blood Blood / Unknown 04/28/2024 9 :41 AM EST 04/28/2024 9:41 AM EST Narrative [facility] - 04/29/2024 5:31 AM EST FASTING:NO Trina Ibarra PA-C LAB - BLOOD DRAW Final Resu lt [facility] [address] [address], [facility] [address] [address] * COMPREHENSIVE METABOLIC PANEL (04/28/2024 9:41 AM EST) Pathologist [facility] GLUCOSE 123 65 - 139 mg/dL [facility] Comment: Non-fasting reference interval UREA NITROGEN (BUN) 14 7 - 25 mg/dL [facility] CREATININE (blood) 0.63 0.50 - 1.05 mg/dL [facility] EGFR 99 > OR = 60 mL/min/1. 73m2 [facility] BUN/CREATININE RATIO SEE NOTE: [facility] Comment: Not Reported: BUN and Creatinine are within reference range. SODIUM 142 135 - 146 mmol/L [facility] POTASSIUM 4.4 3.5 - 5.3 mmol/L [facility] CHLORIDE 106 98 - 110 mmol/L [facility] CARBON DIOXIDE 31 20 - 32 mmol/L [facility] CALCIUM 9.0 8.6 - 10.4 mg/dL [facility] PROTEIN, TOTAL 7.4 6.1 - 8.1 g/dL [facility] ALBUMIN 4.2 3.6 - 5.1 g/dL [facility] GLOBULIN 3.2 1.9 - 3.7 g/dL (calc) [facility] ALBUMIN/GLOBULI N RATIO 1.3 1.0 - 2.5 (calc) [facility] BILIRUBIN, TOTAL 0.5 0.2 - 1.2 mg/dL [facility] ALKALINE PHOSPHATASE 64 37 - 153 U/L [facility] AST 15 10 - 35 U/L [facility] ALT 17 6 - 29 U/L [facility] Blood Blood / Unknown 04/28/2024 9 :41 AM EST 04/28/2024 9:41 AM EST Narrative [facility] - 04/29/2024 5:31 AM EST FASTING:NO us Trina Ibarra PA-C LAB - BLOOD DRAW Final Resu lt [facility] [address] [address], [facility] [address] [address] * HIV-1 & HIV-2 ANTIBODIES (02/05/2020 10:53 AM EDT) [facility] HIV 1 AND 2 ANTIBODY SCREEN NEGATIVE NEGATIVE [facility] Comment: This assay is a 4th generation assay allowing for earlier detection of HIV infection by detecting the presence of the HIV-1 p24 antigen as well as the traditional antibodies to HIV type 1 (including group O) and type 2. Use of a 4th generation assay is the current CDC recommendation for HIV screening. Blood specimen (specimen) Blood / Unknown 02/05/2020 10:53 AM EDT 02/05/2020 4:46 PM EDT Narrative [facility] - 02/05/2020 6:59 PM EDT [facility], a member of [address] [address] Entry Level Mechanical Engineer - Summer Mark MD PT ID [id number] ORD# [id number] Iraida [facility] LAB - BLOOD DRAW Final Resu lt Performing Organization Address [facility]/ZIP Co de Phone Number [address] [address], * (ABNORMAL) HEPATITIS A,B,C PANEL (10/19/2018 10:16 AM EDT) HEPATITIS B SURFACE ANTIBODY NEGATIVE NEGATIVE [facility] HEPATITIS B SURFACE ANTIGEN NEGATIVE NEGATIVE [facility] Comment: Over the counter supplements containing high doses of biotin may interfere with this assay. If interference is suspected, patients shoud be retested after refraining from biotin supplements for 72 hours. HEPATITIS C VIRUS DIAGNOSTIC NEGATIVE NEGATIVE [facility] HEPATITIS A ANTIBODY TOTAL POSITIVE(A) NEGATIVE [facility] Comment: Over the counter supplements containing high doses of biotin may interfere with this assay. If interference is suspected, patients shoud be retested after refraining from biotin supplements for 72 hours. HEPATITIS B CORE ANTIBODY NEGATIVE NEGATIVE [facility] Blood specimen (specimen) Blood / Unknown 10/19/2018 10:16 AM EDT 10/19/2018 5:03 PM EDT Narrative [facility] - 10/19/2018 6:24 PM EDT [employer] [address] Entry Level Mechanical Engineer - Brittni Cash MD PT ID [id number] ORD# [id number] Bola Magana NP LAB - BLOOD DRAW Edited Result - Final [address] [address], [place] [phone] from Last 3 Months or Most Recently Relevant to Health Maintenance [place] - [place] Care Teams Radio Despatcher Relationship Specialty Start Date End Date Trina Ibarra PA-C [facility] [place] [address] PCP - General Primary Care 02/23/23
--- OUTSIDE RECORDS SUMMARY | 2024-11-22 12:49 | XMS_ITS | Clinical Summary ---
Author Organization [facility] Address [address] [place] [phone] Phone Care Team Providers Care Transportation Engineering Technician Name Role Phone Trina Ibarra Primary Care Provider [phone] Allergies Active Allergy Reactions Criticality Noted Date [...] Date Diagnosed Date Low back pain 07/14/2024 Medical History Medical History Date Comments Rheumatoid [...] 77 07/15/2024 8:20 AM EST Temperature 35.5 C (95.9 F) 07/15/2024 8:20 AM EST Respiratory Rate 16 07/15/2024 8:20 AM EST [...] 5 Years) and At-Risk Patients (6 to 49 Years) (2 of 2 - PCV) 02/26/2024 02/25/2023 Influenza Vaccine (#1) 2025 Depression Screening 06/19/2025 06/19/2024 Falls Risk [...] Procedure Name Priority Date/Time Associated Diagnosis Comments BASIC METABOLIC PANEL Routine 07/15/2024 6:54 AM EST from Last 3 Months or Most Recently Relevant to Health Maintenance Results * (ABNORMAL) Basic metabolic panel (07/15/2024 6:54 AM EST) Sodium 140 133 - 145 mmol/L LAB CHEMISTRY METHOD 07/15/2024 7:46 AM [facility] Potassium 4.5 3.5 - 5.5 mmol/L LAB CHEMISTRY METHOD 07/15/2024 7:46 AM [facility] Chloride 111(H) 96 - 110 mmol/L LAB CHEMISTRY METHOD 07/15/2024 7:46 AM [facility] CO2 24 21 - 32 mmol/L LAB CHEMISTRY METHOD 07/15/2024 7:46 AM [facility] Anion Gap 5 3 - 11 LAB CHEMISTRY METHOD 07/15/2024 7:46 AM [facility] Glucose 101(H) 70 - 100 mg/dL LAB CHEMISTRY METHOD 07/15/2024 7:46 AM [facility] BUN 10 5 - 25 mg/dL LAB CHEMISTRY METHOD 07/15/2024 7:46 AM [facility] Creatinine 0.59 0.50 - 1.10 mg/dL LAB CHEMISTRY METHOD 07/15/2024 7:46 AM [facility] eGFR 100 >=60 mL/min/1. 73m2 LAB CHEMISTRY METHOD 07/15/2024 7:46 AM [facility] Comment:Calculation based on the Chronic Kidney Disease Epidemiology Collaboration (CKD-EPI) equation refit without adjustment for race. BUN/Creatinine Ratio 16.9 LAB CHEMISTRY METHOD 07/15/2024 7:46 AM [facility] Calcium 8.7 8.5 - 10.5 mg/dL LAB CHEMISTRY METHOD 07/15/2024 7:46 AM EST [facility] Blood Venous blood specimen / Unknown Venipuncture / Unknown 07/15/2024 6:54 AM EST 07/15/2024 7:06 AM EST us Shen Mejias MD LAB BLOOD ORDERABLES Final Result [facility] [address] [place] [address], from Last 3 Months or Most Recently Relevant to Health Maintenance Insurance MEDICARE MEDICAID - [place] Advance Directives [...] currently active code status orders. Care Teams Transportation Engineering Technician Relationship Specialty Start Date End Date Trina Ibarra PA PCP - General 07/14/24
--- NOTE | 2024-11-22 13:04 | MHC.OFFVIS ---
Vital Signs 11/22/24 13:07 Height 5 ft 2 in Weight 187 lb 6.287 oz BMI 34.3 BP 130/80 Blood Pressure Location Rt brachial Position Sitting Pulse 68 Pulse Source Pulse Oximeter Pulse Oximetry (%) 98 Oxygen Delivery Method Room Air Intake Visit Reasons: 3 Months Intake Note: Patient presents today for follow up on RA. Patient states that she has been having lower back pain for the past day. Allergies IV contrast Allergy (Mild, Uncoded 05/30/24 08:54) acidosis HPI HPI 3 Months: Details: Pain is better controlled. She is experiencing hip pain at night. No recent infections. She is tolerating Enbrel injection. [facility] Medical History Chronic GERD Legally blind Asthma Rheumatoid arthritis Surgical History H/O knee surgery Family History Mother Cardiovascular disease Father Pulmonary emphysema Social History Alcohol intake: never Patient Tobacco Use Status: Never used Tobacco Physical Exam Vital Signs: Last Vital Signs Pulse 68 11/22/24 13:07 BP 130/80 11/22/24 13:07 Pulse Ox 98 11/22/24 13:07 Oxygen Delivery Method Room Air 11/22/24 13:07 BMI result Body Mass Index 34.3 Const Other: General: Comfortable CVS: RRR Respiratory: clear to auscultation bilaterally. Good respiratory effort Skin: No lesions seen MSK: Synovitis of right wrist. Tender bilateral MCPs, PIP, wrists, and shoulders. Tender bilateral MTPs. Normal range of motion of upper extremities. Bilateral knee flexion 90 degrees. Assessment & Plan Assessment & Plan (1) Rheumatoid arthritis: Comment: Inflammatory arthritis has improved with prednisone course and recently starting Enbrel. Rheumatology history: +CPP >250, rheumatoid factor. Erosive inflammatory arthritis involving left foot 1st distal phalanx. MTX 11/2020-02/2022 patient discontinued due to hair loss. Partial response to sulfasalazine and hydroxychloroquine 04/2022. On Humira 2020-07/2024 insurance denied medication. Enbrel 09/2024- Code(s): M06.9 - Rheumatoid arthritis, unspecified Category: Medical Qualifiers: Rheumatoid factor presence: with rheumatoid factor Plan: Continue Enbrel 50 mg subcutaneous injection weekly Labs for drug monitoring on high-risk medication ordered Return to clinic in 3 months (2) Other intermediate (current) drug therapy: Code(s): Z79.899 - Other joint terminal attack controller (current) drug therapy Category: Medical Plan: See above (3) Transaminitis: Comment: Resolved 09/2024 Code(s): R74.01 - Elevation of levels of liver transaminase levels Category: Medical Plan: No new orders (4) Greater trochanteric bursitis of both hips: Code(s): M70.61 - Trochanteric bursitis, right hip; M70.62 - Trochanteric bursitis, left hip Category: Medical Plan: PT ordered. Patient prefers to have PT done local to her home. (5) Fibromyalgia: Comment: Controlled on gabapentin 200 mg twice a day. It was recently increased by PCP. Code(s): M79.7 - Fibromyalgia Category: Medical Plan: Continue gabapentin 200 mg b.i.d. per PCP Orders: Orders PT Evaluation and Treatment Today M70.61 - Trochanteric bursitis, right hip, M70.62 - Trochanteric bursitis, left hip, M79.7 - Fibromyalgia Coding Level of Care Code Est Pt Level 4 (99034) Complex EM visit Add On G2211 Diagnoses Rheumatoid arthritis M06.9 Rheumatoid factor presence: with rheumatoid factor Other intermediate (current) drug therapy Z79.899 Transaminitis R74.01 Greater trochanteric bursitis of both hips M70.61; M70.62 Fibromyalgia M79.7
[2024-11-22 13:07] VITALS: BP 130/80; PULSE 68; O2SAT 98; BMI 34.3
== END 2024-11-22 13:51 | disposition home or self-care (01) ==
LOC: HO.RHES 12:45
PROVIDERS: PCP Student in an Organized Health Care Education/Training Program; Visit Provider Internal Medicine Rheumatology
DX: M06.9 Rheumatoid arthritis, unspecified (principal); Z79.899 Other long term (current) drug therapy; R74.01 Elevation of levels of liver transaminase levels; M70.61 Trochanteric bursitis, right hip; M70.62 Trochanteric bursitis, left hip; M79.7 Fibromyalgia
CPT/HCPCS: 99214; G2211

== ENCOUNTER 2024-12-24 10:44 | Outpatient (REF) | payer OTHER, SELFPAY ==
--- OUTSIDE RECORDS SUMMARY | 2024-12-24 11:28 | XMS_ITS | Clinical Summary ---
Author Organization [facility] Address [address] [place] [phone] Phone Care Team Providers Care Silk Worker Name Role Phone Trina Ibarra Primary Care Provider [phone] Allergies Active Allergy Reactions Criticality Noted Date [...] (2 of 2 - PCV) 02/26/2024 02/25/2023 Depression Screening 05/16/2024 Influenza Vaccine (#1) 2025 Falls Risk Assessment 07/15/2025 07/15/2024 Hypertension/CHF/CAD Annual [...] 7:46 AM [facility] Potassium 4.5 3.5 - 5.5 mmol/L [...] [facility] Comment:Calculation based on the Chronic Kidney [...] MD LAB BLOOD ORDERABLES Final Result [facility] [place] ([facility]) [facility] [address] [place] [address], [place] [phone] from Last 3 Months or Most Recently Relevant to Health Maintenance Insurance MEDICARE MEDICAID - [place] Advance Directives * Full Code - Confirmed [...] currently active code status orders. Care Teams Silk Worker Relationship Specialty Start Date End Date Trina Ibarra PA PCP - General 07/14/24
[2024-12-24 14:01] LABS: Alanine Aminotransferase 34 U/L (0-31); Aspartate Amino Transferase 34 U/L (5-31)
== END 2024-12-24 10:45 | disposition home or self-care (01) ==
LOC: HO.HKASLDS 10:44
PROVIDERS: Internal Medicine Rheumatology; Visit Provider Internal Medicine Nephrology
DX: R74.01 Elevation of levels of liver transaminase levels (principal)
CPT/HCPCS: 36415; 84450; 84460

== ENCOUNTER 2025-01-18 12:53 | Outpatient (AMB) | payer MEDICARE, MEDICAID, SELFPAY ==
[2025-01-18 12:57] VITALS: BP 126/88; PULSE 76; O2SAT 98; BMI 33.4
--- NOTE | 2025-01-18 12:57 | MHC.PC.OV ---
Vital Signs 01/18/25 12:57 Height 5 ft 2 in Weight 182 lb 8 oz BMI 33.4 BP 126/88 Blood Pressure Location Lt brachial Position Sitting Pulse 76 Pulse Oximetry (%) 98 Oxygen Delivery Method Room Air Intake Visit Reasons: Establish Care Press Officer Required: Yes Press Officer Language: Indonesian Information Interpreted: clinical only Accompanied by: spouse Allergies IV contrast Allergy (Mild, Uncoded 01/18/25 13:15) acidosis Medication List - Last Reconciled 01/18/25 by Evelyn Wesley PA-C etanercept (Enbrel SureClick) 50 mg subcut QWEEK lidocaine 5% 1 patch topical DAILY lisinopril 20 mg PO DAILY mecobalamin (vitamin B12) 1,000 mcg PO DAILY meloxicam 15 mg PO DAILY omeprazole 20 mg PO DAILY simvastatin 5 mg PO DAILY Tobacco use date assessed: 01/18/25 Fall risk assessment: No Falls in past year Last assessed Fall Risk: 01/18/25 Dental Screening Dental Screen Date: 01/18/25 Did you have a dental visit in the last 12 months?: No Did you have a dental problem in the last 6 months where you did not have access to dental care?: No Was dental information given to patient?: Patient declined HPI Establish Care HPI Details 64-year-old female coming to the office with the 1st time. In review of the notes, patient was seen by Rheumatology 11/2024 for rheumatoid arthritis continued on gabapentin 200 mg b.i.d., continued on Enbrel for rheumatoid arthritis and sent for PT for bilateral hip pain. 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 Patient was previously being seen at [facility] last seen 6 months ago. She reports having urgency and nocturnal polyuria that has been going on for about 5 months. Presenting with management of rheumatoid arthritis, fibromyalgia, and urinary urgency. Rheumatoid arthritis Managed by rheumatology with weekly injections. Fibromyalgia Persistent pain despite medication, gabapentin was ineffective. Obstructive sleep apnea Uses CPAP nightly. mammogram: 07/2024 colonoscopy: Cologuard 06/2024 eye exam: yearly [facility] Medical History Chronic GERD Legally blind Asthma Rheumatoid arthritis Surgical History Hx of cholecystectomy H/O knee surgery Family History Mother Cardiovascular disease Father Pulmonary emphysema Social History Household Members: Spouse Both parents involved: No Caregiver staying overnight: No Housing: Apartment Are you a primary wound care nurse to a significant other at home: No Do you presently have visiting nurse or other home services: No Alcohol intake: never Patient Tobacco Use Status: Never used Tobacco Use of substances other than those prescribed or required for medical reasons: No Have you been hit, kicked, punched, or otherwise hurt by someone within the past year? If so, by whom?: No Do you feel safe in your current relationship?: Yes Is there a partner from a previous relationship who is making you feel unsafe now?: No Are you made to feel afraid or neglected: No service: No Current occupational status: retired Hearing needs: No Vision needs: No Questionnaire PHQ-9 Over the last 2 weeks, how often have you been bothered by any of the following problems? 1. Little interest or pleasure in doing things: nearly every day 2. Feeling down, depressed, or hopeless: several days 3. Trouble falling or staying asleep, or sleeping too much: several days 4. Feeling tired or having little energy: nearly every day 5. Poor appetite or overeating: several days 6. Feeling bad about yourself - or that you are a failure or have let yourself or your family down: not at all 7. Trouble concentrating on things, such as reading the newspaper or watching television: several days 8. Moving or speaking so slowly that other people could have noticed. Or the opposite - being so fidgety or restless that you have been moving around a lot more than usual: not at all 9. Thoughts that you would be better off or of hurting yourself in some way: not at all Total score: 10 Depression Screening Interpretation: Positive (pain related - declining treatment) Depression Screening Done: Yes 07131 - PHQ-9 Billing: Yes Source: Developed by Drs. Micah Macedo, Chery Lane, Jatin Gonzalez and colleagues, with an educational aleah from [employer]. Thrive Questionnaire Date Thrive assessed: 01/11/25 I am a: Patient What is your living situation today?: I have a steady place to live Within the past 12 months, did the food you bought not last and you didn't have the money to get more?: Never true Within the past 12 months, did you worry whether your food would run out before you got money to buy more?: Never true Do you have trouble paying for medicines?: No Do you have trouble getting transportation to medical appointments?: No Do you have trouble paying your heating and electricity bill?: No Do you have trouble taking care of your child, family member or friend?: No Do you have trouble with day-to-day activities such as bathing, preparing meals, shopping, managing finances, etc.?: Yes Are you currently unemployed and looking for a job?: No Are you interested in more education?: No Please select the resources that you would like help with: None Currently or been in a relationship where the following occur: No concerns reported THRIVE Score: 0 AUDIT C Alcohol Use Questionnaire (AUDIT-C) 1. How often do you have a drink containing alcohol?: Never 2. How many drinks containing alcohol do you have on a typical day when you are drinking?: 1 or 2 3. How often do you have six or more drinks on one occasion?: Never Total Score: 0 AUGUSTINA-7 AMB Questionnaire AUGUSTINA-7 Date AUGUSTINA - 7 assessed: 01/18/25 Feeling nervous, anxious, or on edge: 0 = Not at all Not being able to stop or control worryin = Several days Worrying too much about different things: 1 = Several days Trouble relaxin = Several days Being so restless that it is hard to sit still: 1 = Several days Becoming easily annoyed or irritable: 0 = Not at all Feeling afraid as if something awful might happen: 0 = Not at all Total AUGUSTINA-7 score (0-4 normal; 5-9 mild; 10-14 moderate; 15-21 severe): 4 Source: Developed by Drs. Micah Macedo, Chery Lane, Jatin Gonzalez and colleagues, with an educational aleah from [employer]. AUGUSTINA-7 Assessment Billing AUGUSTINA-7 Assessment Tool: AUGUSTINA-7 Assessment 72381 ACT Questionnaire In the past 4 weeks, how much of the time did your asthma keep you from getting as much done at work, school or at home?: Some of the time During the past 4 weeks, how often have you had shortness of breath?: More than once a day During the past 4 weeks, how often did your asthma symptoms wake you up at night or earlier than usual in the morning?: 4 or more nights a week During the past 4 weeks, how often have you had to use your rescue inhaler or nebulizer medication?: Not at all How would you rate your asthma control during the past 4 weeks?: Poorly controlled Score: 12 Review of Systems Const Denies body aches, Denies fatigue, Denies fever(s), Denies frequent falls, Denies headache(s) and Denies weakness Eyes Reports no additional complaints and Denies change in vision ENT Denies dysphagia, Denies dizziness, Denies facial pain, Denies headache(s), Denies nasal congestion and Denies odynophagia Card Denies chest pain, Denies syncope, Denies irregular heart rhythm, Denies leg edema, Denies lightheadedness and Denies dyspnea Resp Denies cough and Denies dyspnea GI Denies constipation, Denies dysphagia, Denies dyspepsia, Denies diarrhea, Denies nausea, Denies odynophagia and Denies vomiting Reports as per HPI, Denies urinary frequency, Denies dysuria, Denies urinary hesitancy and Reports urinary urgency Musc Denies back pain and Denies myalgias Skin/Breast Reports system reviewed and no additional complaints, except as documented Neuro Denies dizziness, Denies syncope, Denies frequent falls, Denies headache(s) and Denies weakness Psych Reports no additional complaints Endo Denies fatigue Physical exam (Primary Care) Vital Signs: Last Vital Signs Pulse 76 01/18/25 12:57 BP 126/88 01/18/25 12:57 Pulse Ox 98 01/18/25 12:57 Oxygen Delivery Method Room Air 01/18/25 12:57 BMI result Body Mass Index 33.4 Tobacco/Smoking Status: Tobacco use Status Tobacco use date assessed 01/18/25 01/18/25 13:11 Patient Tobacco Use Status Never used Tobacco 01/18/25 13:11 PHQ-9: PHQ-9 Score PHQ-9: Total score 10 01/18/25 13:32 Depression Screening Interpretation: Positive (pain related - declining treatment) Thrive Assessment: Date of Thrive Assessment Date Thrive assessed 01/11/25 01/18/25 13:11 Currently or been in a relationship where the following occur: No concerns reported Const General: cooperative, healthy appearing, comfortable and no acute distress Orientation/consciousness: patient oriented x3 HENMT Head: Yes normocephalic Ears: hearing grossly normal bilaterally, external ears normal, TM's normal bilaterally and EAC's normal General nose exam: Normal external nose present Face and sinus: Yes normal facial exam and Yes sinuses nontender Mouth: Normal oral and palatal mucosa present and tongue normal Throat: Yes posterior oropharynx normal Eyes General: appearance normal, both eyes and all related structures Conjunctivae: conjunctivae normal Pupils: Equal, round and reactive pupils present EOM: EOMs intact bilaterally and No Nystagmus present Neck Neck: Yes normal visual inspection, Yes full ROM and Yes no lymphadenopathy Chest Chest palpation & inspection: normal inspection of the chest Resp Effort & Inspection: normal respiratory effort Auscultation: clear to auscultation bilaterally, no crackles, no rales, no rhonchi, no wheezes and breath sounds present Cardio Rate: regular rate Rhythm: regular rhythm Peripheral pulses: radial pulses present and dorsalis pedis present GI Inspection: Yes normal to inspection and No Abdominal wall edema Palpation (GI): Soft to palpation, not firm and nontender Auscultation: normal bowel sounds Rectal Exam - Female: deferred General: Yes no CVA tenderness Back/Spine/Pelvis Back: no CVA tenderness Skin General skin exam: no rashes or lesions noted Neuro General: patient oriented x3 Cranial nerves: Yes Equal, round and reactive pupils present, Yes Midline tongue present, Yes Ability to bilaterally elevate shoulders present and No Nystagmus present Gait exam (Neuro): Normal gait present Extrem General: Yes normal to inspection, Yes full ROM, No no pedal edema and No edema Psych Speech and movement: Normal speech and movement present Affect: normal affect Insight: Good insight present (Psych) Judgement: Good judgement present (Psych) Coding Level of Care Code New Pt Level 4 (56790) Diagnoses Transaminitis R74.01 Rheumatoid arthritis M06.9 Rheumatoid factor presence: with rheumatoid factor Fibromyalgia M79.7 Hypercholesteremia E78.00 Chronic GERD K21.9 Hypertension I10 JAYASHREE (obstructive sleep apnea) G47.33 Asthma J45.909 Nocturnal polyuria R35.81 Additional Codes AUGUSTINA-7 Assessment Billing - AUGUSTINA-7 Assessment Tool: AUGUSTINA-7 Assessment 99539 ([id number]) PHQ-9 - 27389 - PHQ-9 Billing: Yes ([id number]) Assessment & Plan Assessment & Plan (1) Transaminitis: Comment: Resolved 09/2024 Code(s): R74.01 - Elevation of levels of liver transaminase levels Category: Medical Plan: Continue to monitor LFTs at this time. (2) Rheumatoid arthritis: Comment: Inflammatory arthritis has improved with prednisone course and recently starting Enbrel. Rheumatology history: +CPP >250, rheumatoid factor. Erosive inflammatory arthritis involving left foot 1st distal phalanx. MTX 11/2020-02/2022 patient discontinued due to hair loss. Partial response to sulfasalazine and hydroxychloroquine 04/2022. On Humira 2020-07/2024 insurance denied medication. Enbrel 09/2024- Code(s): M06.9 - Rheumatoid arthritis, unspecified Category: Medical Qualifiers: Rheumatoid factor presence: with rheumatoid factor Plan: The patient is managed by the rheumatology team with weekly injections. Continued monitoring and management by the rheumatology team are recommended. (3) Fibromyalgia: Comment: Controlled on gabapentin 200 mg twice a day. It was recently increased by PCP. Code(s): M79.7 - Fibromyalgia Category: Medical Plan: The patient reports persistent pain despite previous use of gabapentin. Pregabalin has been prescribed to manage fibromyalgia symptoms. Plan to follow up in 3 months. (4) Hypercholesteremia: Code(s): E78.00 - Pure hypercholesterolemia, unspecified Category: Medical Plan: Avoid foods that are high in cholesterol such as red meat, fried foods, eggs and baked goods. Triglyceride goal of less than 150 and LDL goal of less than 130. Continue on Simvastatin (5) Chronic GERD: Code(s): K21.9 - Gastro-esophageal reflux disease without esophagitis Category: Medical Plan: Avoid trigger foods such as citrus, tomato products, soda, caffeine, spicy foods and other foods that may be irritating to your stomach. Avoid laying flat 3-4 hours after eating and elevate the head of the bed 30 degrees to prevent acid from moving into the esophagus. (6) Hypertension: Code(s): I10 - Essential (primary) hypertension Category: Medical Plan: Continue on current blood pressure medication. Avoid salt intake and encourage healthy diet and regular exercise. (7) JAYASHREE (obstructive sleep apnea): Comment: CPAP Code(s): G47.33 - Obstructive sleep apnea (adult) (pediatric) Category: Medical Plan: Uses CPAP faithfully at least 4 hours a night and benefits from this therapy. (8) Asthma: Code(s): J45.909 - Unspecified asthma, uncomplicated Category: Medical Plan: Asthma currently controlled on present medications. Continue on albuterol as needed.? Avoid triggers such as allergies. Patient's albuterol uses questionable as it is unclear if she uses it frequently are not, indicating possible poor asthma control. A nebulizer has been prescribed, and further evaluation of asthma management is planned. She is declining an additional inhaler as she reports she is not using it often. To follow up in 3 months or sooner as needed (9) Nocturnal polyuria: Code(s): R35.81 - Nocturnal polyuria Category: Medical Plan: The patient reports a five-month history of urinary urgency. A urine sample and blood work have been ordered to investigate potential causes. If results are normal, medication or specialist referral may be considered. Urinalysis in the office is normal Plan I discussed with the patient the management of her rheumatoid arthritis, fibromyalgia, urinary urgency, and asthma. We reviewed the need for a urine sample and blood work to investigate urinary symptoms. I also explained the prescription of pregabalin for fibromyalgia and the use of a nebulizer for asthma management. Follow-up in three months was recommended to reassess her conditions and adjust treatment as necessary. This note was constructed using voice recognition software. While every effort has been made to ensure accuracy and economic research assistant, still areas may have been included sometimes these areas may affect the content or meeting of the given symptoms. Total time spent caring for the patient today was 30 minutes. This includes time spent before the visit reviewing the chart, time spent during the visit, and time spent after the visit and documentation. Patient was informed and verbally consented to the use of an ambient scribe for clinic note documentation during this visit. Orders: Orders AMB Urinalysis Dipstick Today Z13.9 - Encounter for screening, unspecified TSH reflex Free T4 Today Z13.29 - Encounter for screening for other suspected endocrine disorder Vitamin B12 and Folate Today Z13.21 - Encounter for screening for nutritional disorder Hemoglobin A1c Today Z13.1 - Encounter for screening for diabetes mellitus Comprehensive Met. Panel Today R74.01 - Elevation of levels of liver transaminase levels, Z00.00 - Encounter for general adult medical examination without abnormal findings Lipid Panel Today E78.00 - Pure hypercholesterolemia, unspecified Vitamin D 25-OH Total Today Z13.21 - Encounter for screening for nutritional disorder
--- OUTSIDE RECORDS SUMMARY | 2025-01-18 13:07 | XMS_ITS | Clinical Summary ---
Author Organization [facility] Address [address] [place] [phone] Phone Care Team Providers Care Bank Courier Name Role Phone Trina Ibarra Primary Care Provider Allergies Active Allergy Reactions Criticality Noted Date [...] LAB CHEMISTRY METHOD 07/15/2024 7:46 AM [facility] Potassium 4.5 3.5 - 5.5 mmol/L LAB CHEMISTRY METHOD 07/15/2024 7:46 AM [facility] Chloride 111(H) 96 - 110 mmol/L LAB CHEMISTRY METHOD 07/15/2024 7:46 AM [facility] CO2 24 21 - 32 mmol/L LAB CHEMISTRY METHOD 07/15/2024 7:46 AM [facility] Anion Gap 5 3 - 11 LAB CHEMISTRY METHOD 07/15/2024 7:46 AM [facility] Glucose 101(H) 70 - 100 mg/dL LAB CHEMISTRY METHOD 07/15/2024 7:46 AM [facility] BUN 10 5 - 25 mg/dL LAB CHEMISTRY METHOD 07/15/2024 7:46 AM [facility] Creatinine 0.59 0.50 - 1.10 mg/dL LAB CHEMISTRY METHOD 07/15/2024 7:46 AM [facility] eGFR 100 >=60 mL/min/1. 73m2 LAB CHEMISTRY METHOD 07/15/2024 7:46 AM [facility] Comment:Calculation based on the Chronic Kidney Disease Epidemiology Collaboration (CKD-EPI) equation refit without adjustment for race. BUN/Creatinine Ratio 16.9 LAB CHEMISTRY METHOD 07/15/2024 7:46 AM [facility] Calcium 8.7 8.5 - 10.5 mg/dL LAB CHEMISTRY METHOD 07/15/2024 7:46 AM [facility] Blood Venous blood specimen / Unknown Venipuncture / Unknown 07/15/2024 6:54 AM EST 07/15/2024 7:06 AM EST us Shen Mejias MD LAB BLOOD ORDERABLES Final Result [facility] [place] [facility] [address] [place] [address], [place] [phone] from Last 3 Months or Most Recently Relevant to Health Maintenance Insurance [place]IC[place] Advance Directives * Full Code - Confirmed [...] currently active code status orders. Care Teams Bank Courier Relationship Specialty Start Date End Date Trina Ibarra PA PCP - General 07/14/24
--- OUTSIDE RECORDS SUMMARY | 2025-01-18 13:07 | XMS_ITS | Clinical Summary ---
Author Organization [facility] Address [address] [place] [address] Care Team Providers Care Nuclear Fuel Processing Technician Name Role Phone Trina Ibarra PA-C Primary Care Provider [phone] Source Comments PLEASE NOTE, if this patient [...] involving both knees with positive rheumatoid factor ([facility]) [M05.761, M05.762], De Quervain's tenosynovitis, bilateral [M65.4], [...] involving multiple sites with positive rheumatoid factor ([facility] & HHS-HCC) TAKE TWO CAPSULES BY MOUTH [...] involving both knees with positive rheumatoid factor ([facility]) [M05.761, M05.762], De Quervain's tenosynovitis, bilateral [M65.4], Primary osteoarthritis of lumbar spine [M47.816] 1 Each 025 Active omeprazole (PRILOSEC) [address] [...] DAY ^1R1 30 Tablet 2 025 Active fluticasone (FLONASE) 50 mcg/actuation nasal sprayIndications: Nasal congestion USE 1 SPRAY IN EACH NOSTRIL ONCE DAILY (BULK) 16 g 025 Active VENTOLIN HFA 90 mcg/actuation inhalerIndication s:Mild intermittent asthma without complication (HHS-HCC) INHALE 2 PUFFS BY MOUTH EVERY 4 TO 6 HOURS NEEDED FOR SHORTNESS OF BREATH (BULK) 18 g 1 025 Active diclofenac sodium (VOLTAREN) 1 % gelIndications:Ac [place] right-sided low back pain without sciatica APPLY 2 GRAMS TOPICALLY TO AFFECTED AREA(S) TWO TIMES A DAY (BULK). 100 g 025 Active VENTOLIN HFA 90 mcg/actuation inhalerIndication s:Mild intermittent asthma without complication (HHS-HCC) INHALE TWO PUFFS BY MOUTH EVERY 4 TO 6 HOURS NEEDED FOR SHORTNESS OF BREATH (BULK) 18 g 1 025 2024 Discontinued diclofenac sodium (VOLTAREN) 1 % gelIndications:Ac men[place]inee right-sided low back pain without sciatica APPLY 2 GRAM(S) TOPICALLY TO AFFECTED AREA(S) TWO TIMES A DAY (BULK). 100 g 025 2024 Discontinued Active Problems Problem Noted Date Diagnosed Date Acute on chronic low back pain 07/23/2024 Overview (07/23/2024): [facility] Ed Admission Date 07/14/2024 Discharge Date [...] 05/30/2024 Overview (05/30/2024): Certificate of blindness - [facility] - Registration #[id number] - Date issue 11/14/2019 Fibromyalgia 04/27/2024 Osteoarthritis [...] BI-RADS: 2 (Benign) 05/08/2024 - Mammogram - [facility] - Impression: No mammographic evidence of malignancy. Recommendation: annual mammographic screening. BI-RADS: 2( Benign) Varicose veins of both lower extremities with pa in 01/29/2022 Rheumatoid arthritis involvi ng multiple sites with positive rheumatoid factor ([facility]HCC) 11/17/2021 Overview (03/17/2024): 03/13/2024 - Arthritis treatment center - Localized cervical osteoarthritis, Localized lumbar osteoarthritis, Seropositive rheumatoid arthritis being managed with biologic therapy. - Meloxicam 7.5 mg tablet once daily - f/u with Dr. Reina De Quervain's tenosynovitis, bilateral 2 Primary osteoarthritis of lumbar spine 2 Primary osteoarthritis of both knees 11/17/2021 Trochanteric bursitis of both hips 11/17/2021 Other insomnia 02/05/2020 Pain in joint, multiple sites 02/05/2020 Mild asthma ([facility]) 10/19/2018 Immunizations Immunization Administration Dates Next Due PNEUMOCOCCAL [...] Colonography 2004 Colonoscopy 2004 Flexible Sigmoidoscopy 2004 [id number] (3 - Moderna ri sk series) 09/18/2020 08/21/2020, 07/25/2020 Imm-Zoster, Recombinant (2 of 2) 04/22/2023 02/26/20 23 Imm-Pneumococcal 50+ (2 of 2 - PCV) 02/26/2024 02/25/2023 Bone Density Screening 2024 Falls Prevention 2024 Imm-Influenza (#1) 2025 Lipid Screening 04/28/2025 04/28/2024, 02/13, 10/01/2022, Additional history exists Anxiety Screening 06/19/2025 06/19/2024 Diabetes Screening 07/15/2025 07/15/2024, 0 07/14/2024, 04/28/2024, Additional history exists Tobacco Screening 07/23/2025 07/23/2024, 01/28/2022 FIT/gFOBT 08/07/2025 08/07/2024 Breast Cancer Screening (Mammogram) [...] Procedure Name Priority Date/Time Associated Diagnosis Comments REFERRAL SCANNED DOCUMENT 12/13/2024 3:00 AM EDT OTHER ORDERS SCANNED DOCUMENT 11/23/2024 3:00 AM EDT OTHER ORDERS SCANNED DOCUMENT 11/08/2024 3:00 AM EDT OTHER ORDERS SCANNED DOCUMENT 11/01/2024 3:00 AM EDT COLOGUARD Routine 08/07/2024 3:00 [...] Recently Relevant to Health Maintenance Results * REFERRAL SCANNED DOCUMENT (12/13/2024 3:00 AM EDT) 12/13/2024 3:00 AM EDT us [facility] Provider Default SCAN REFERRAL Final Resu lt * OTHER ORDERS SCANNED DOCUMENT (11/23/2024 3:00 AM EDT) Only the most recent of3 resultswithin the time period is included. 11/23/2024 3:00 AM EDT us Trina Ibarra PA-C SCAN OTHER ORDERS Final Res ult * COLOGUARD (08/07/2024 3:00 AM EDT) Stool Stool specimen / Unknown 08/07/2024 3:00 AM EDT us Trina Ibarra PA-C LAB BODY FLUIDS AND STOOLS AMBULATORY Final Result [email or web address] [address] [place] [address], [address] [facility] [id number] [place] [address], * HISTORIC MAMMOGRAM (05/08/2024 3:00 AM EST) 05/08/2024 3:00 AM EST us Trina Ibarra PA-C IMG MAMMO Final Resul t * (ABNORMAL) LIPID PANEL (04/28/2024 9:41 AM EST) CHOLESTEROL, TOTAL 160 <200 mg/dL [facility] HDL CHOLESTEROL 46(L) > OR = 50 mg/dL [facility] TRIGLYCERIDES 107 <150 mg/dL [facility] LDL-CHOLESTEROL 94 99 mg/dL (calc) [employer] [facility] Comment: Reference range: <100 Desirable range <100 mg/dL for primary prevention; <70 mg/dL for patients with CHD or diabetic patients with > or = 2 CHD risk factors. LDL-C is now calculated using the Lester-Elmer calculation, which is a validated novel method providing better accuracy than the Friedewald equation in the estimation of LDL-C. Lester SS et al. SHERRY. 2013;310(19): 0361-2758 (http://education.KiteBit/faq/UBO469) CHOL/HDLC RATIO 3.5 <5.0 (calc) [employer] NON-HDL CHOLESTEROL 114 <130 mg/dL (calc) [employer] Comment: For patients with diabetes plus 1 major ASCVD risk factor, treating to a non-HDL-C goal of <100 mg/dL (LDL-C of <70 mg/dL) is considered a therapeutic option. Blood Blood / Unknown 04/28/2024 9 :41 AM EST 04/28/2024 9:41 AM EST Narrative [facility] - 04/29/2024 5:31 AM EST FASTING:NO us Trina Ibarra PA-C LAB - BLOOD DRAW Final Resu lt [employer] [facility] [address] [address], [employer] [facility] [address] [place] [address] * COMPREHENSIVE METABOLIC PANEL (04/28/2024 9:41 AM EST) GLUCOSE 123 65 - 139 mg/dL [employer] [facility] Comment: Non-fasting reference interval UREA NITROGEN (BUN) 14 7 - 25 mg/dL [employer] [facility] CREATININE (blood) 0.63 0.50 - 1.05 mg/dL [employer] [facility] EGFR 99 > OR = 60 mL/min/1. 73m2 [employer] [facility] BUN/CREATININE RATIO SEE NOTE: 6 [employer] [facility] Comment: Not Reported: BUN and Creatinine are within reference range. SODIUM 142 135 - 146 mmol/L [employer] [facility] POTASSIUM 4.4 3.5 - 5.3 mmol/L [employer] [facility] CHLORIDE 106 98 - 110 mmol/L [employer] [facility] CARBON DIOXIDE 31 20 - 32 mmol/L [employer] [facility] CALCIUM 9.0 8.6 - 10.4 mg/dL [employer] [facility] PROTEIN, TOTAL 7.4 6.1 - 8.1 g/dL [employer] [facility] ALBUMIN 4.2 3.6 - 5.1 g/dL [employer] [facility] GLOBULIN 3.2 1.9 - 3.7 g/dL (calc) [employer] [facility] ALBUMIN/GLOBULI N RATIO 1.3 1.0 - 2.5 (calc) [employer] [facility] BILIRUBIN, TOTAL 0.5 0.2 - 1.2 mg/dL [employer] [facility] ALKALINE PHOSPHATASE 64 37 - 153 U/L [employer] [facility] AST 15 10 - 35 U/L [employer] [facility] ALT 17 6 - 29 U/L [employer] [facility] Blood Blood / Unknown 04/28/2024 9 :41 AM EST 04/28/2024 9:41 AM EST Narrative [facility] - 04/29/2024 5:31 AM EST FASTING:NO Trina Ibarra PA-C LAB - BLOOD DRAW Final Resu lt Performing Organization Address City/[facility]/ZIP Co de Phone Number [facility] [address] [address], [facility] [address] [place] [address] * HIV-1 & HIV-2 ANTIBODIES (02/05/2020 10:53 AM EDT) Pathologist [facility] HIV 1 AND 2 ANTIBODY SCREEN NEGATIVE NEGATIVE [facility] Comment: This assay is a 4th generation [...] AM EDT 02/05/2020 4:46 PM EDT Narrative [facility] - 02/05/2020 6:59 PM EDT [place], [place] [address] Machine Assembler For Puller Over - Summer Mark MD PT ID [id number] ORD# [id number] Iraida LÓPEZ LAB - BLOOD DRAW Final Resu lt Performing Organization Address City/[facility]/ZIP Co de Phone Number [address] [address], * (ABNORMAL) HEPATITIS A,B,C PANEL (10/19/2018 10:16 AM EDT) Pathologist [facility] HEPATITIS B SURFACE ANTIBODY NEGATIVE NEGATIVE [facility] HEPATITIS B SURFACE ANTIGEN NEGATIVE NEGATIVE [facility] Comment: Over the counter supplements containing high doses of biotin may interfere with this assay. If interference is suspected, patients shoud be retested after refraining from biotin supplements for 72 hours. HEPATITIS C VIRUS DIAGNOSTIC NEGATIVE NEGATIVE [facility] HEPATITIS A ANTIBODY TOTAL POSITIVE(A) NEGATIVE [facility] Comment: Over the counter supplements containing high doses of biotin may interfere with this assay. If interference is suspected, patients shoud be retested after refraining from biotin supplements for 72 hours. HEPATITIS B CORE ANTIBODY NEGATIVE NEGATIVE [facility] Blood specimen (specimen) Blood / Unknown 10/19/2018 10:16 AM EDT 10/19/2018 5:03 PM EDT Narrative [facility] - 10/19/2018 6:24 PM EDT [place], [place] [address] Machine Assembler [employer] - Brittni Cash MD PT ID [id number] ORD# [id number] Bola Magana NP LAB - BLOOD DRAW Edited Result - Final [address] [address], from Last 3 Months or Most Recently Relevant to Health Maintenance [place] Plan / Payer (Ef fective 2024-Present) Name:Vannesa Holden Relation to Subscriber:Self Name:Vannesa Holden Payer ID:[id number] Group ID:Not on file Type:Medicare Address: [address] [place] [id number] Care Teams Nuclear Fuel Processing Technician Relationship Specialty Start Date End Date Trina Ibarra PA-C [facility] [place] [address] PCP - General Primary Care 02/23/23
== END 2025-01-18 14:34 | disposition home or self-care (01) ==
LOC: HO.HMCH 12:54
DX: R74.01 Elevation of levels of liver transaminase levels (principal); M06.9 Rheumatoid arthritis, unspecified; M79.7 Fibromyalgia; E78.00 Pure hypercholesterolemia, unspecified; K21.9 Gastro-esophageal reflux disease without esophagitis; I10 Essential (primary) hypertension; G47.33 Obstructive sleep apnea (adult) (pediatric); J45.909 Unspecified asthma, uncomplicated; R35.81 Nocturnal polyuria

== ENCOUNTER → 2025-01-18 12:53 | Outpatient (BNVA) | payer MEDICARE, MEDICAID, SELFPAY | PROVIDERS: PCP Student in an Organized Health Care Education/Training Program | DX: M79.7 Fibromyalgia (principal); M06.9 Rheumatoid arthritis, unspecified; R39.15 Urgency of urination; G47.33 Obstructive sleep apnea (adult) (pediatric); R74.01 Elevation of levels of liver transaminase levels; E78.00 Pure hypercholesterolemia, unspecified; K21.9 Gastro-esophageal reflux disease without esophagitis; I10 Essential (primary) hypertension; J45.909 Unspecified asthma, uncomplicated; R35.81 Nocturnal polyuria; Z99.89 Dependence on other enabling machines and devices | CPT/HCPCS: 96127; 96160; 99202 ==

== ENCOUNTER 2025-03-06 12:57 | Outpatient (AMB) | payer MEDICARE, MEDICAID, SELFPAY ==
--- NOTE | 2025-03-06 13:14 | A.OFFVIS_ITS ---
Vital Signs 03/06/25 13:15 Height 5 ft 2 in Weight 187 lb 9.814 oz BMI 34.3 BP 140/80 H Blood Pressure Location Rt brachial Position Sitting Pulse 73 Pulse Source Pulse Oximeter Pulse Oximetry (%) 98 Oxygen Delivery Method Room Air Intake Visit Reasons: 3 Months Intake Note: Patient presents today for follow up on RA. Accompanied by: jackie Allergies IV contrast Allergy (Mild, Uncoded 01/18/25 13:15) acidosis Medication List - Last Reconciled 03/06/25 by Héctor Reina MD albuterol sulfate 1.25 mg (3 mL) inhalation QID PRN etanercept (Enbrel SureClick) 50 mg subcut QWEEK lidocaine 5% 1 patch topical DAILY lisinopril 20 mg PO DAILY mecobalamin (vitamin B12) 1,000 mcg PO DAILY meloxicam 15 mg PO DAILY [Nebulizer As directed] omeprazole 20 mg PO DAILY pregabalin 25 mg PO BEDTIME simvastatin 5 mg PO DAILY HPI HPI 3 Months: Details: She is accompanied with her daughter in law. Amharic speaking but can communicate in Azeri. She continues to have pain all over. MS 1 hour. [facility] Medical History Chronic GERD Legally blind Asthma Rheumatoid arthritis Surgical History Hx of cholecystectomy H/O knee surgery Family History Mother Cardiovascular disease Father Pulmonary emphysema Social History Household Members: Spouse Both parents involved: No Caregiver staying overnight: No Housing: Apartment Are you a primary transitional care liaison to a significant other at home: No Do you presently have visiting nurse or other home services: No Alcohol intake: never Patient Tobacco Use Status: Never used Tobacco service: No Current occupational status: retired Hearing needs: No Vision needs: No Physical Exam Vital Signs: Last Vital Signs Pulse 73 03/06/25 13:15 BP 140/80 H 03/06/25 13:15 Pulse Ox 98 03/06/25 13:15 Oxygen Delivery Method Room Air 03/06/25 13:15 BMI result Body Mass Index 34.3 Const Other: General: Comfortable CVS: RRR Respiratory: clear to auscultation bilaterally. Good respiratory effort Skin: No lesions seen MSK: Tender bilateral MCPs, PIP, wrists, and shoulders. Tender bilateral MTPs. Normal range of motion of upper extremities. Bilateral knee flexion 90 degrees. Assessment & Plan Assessment & Plan (1) Rheumatoid arthritis: Comment: Inflammatory arthritis has improved on Enbrel. She has had mild transaminitis on Enbrel. It has resolved on most recent labs from this month. If she continues to have transaminitis on future labs, I will need to consider changing Enbrel to another agent. Patient is open to considering TNF inhibitor Remicade as she has had great response on TNF inhibitors. Rheumatology history: +CPP >250, rheumatoid factor. Erosive inflammatory arthritis involving left foot 1st distal phalanx. MTX 11/2020-02/2022 patient discontinued due to hair loss. Partial response to sulfasalazine and hydroxychloroquine 04/2022. On Humira 2020-07/2024 insurance denied medication. Enbrel 09/2024- Code(s): M06.9 - Rheumatoid arthritis, unspecified Category: Medical Qualifiers: Rheumatoid factor presence: with rheumatoid factor Plan: Continue Enbrel 50 mg subcutaneous injection weekly Continue meloxicam 15 mg daily Labs for drug monitoring on high-risk medication up-to-date 03/06/2025 Return to clinic in 3 month (2) Other halfway (current) drug therapy: Code(s): Z79.899 - Other halfway (current) drug therapy Category: Medical Plan: See above (3) Transaminitis: Comment: Resolved on most recent labs from 03/06/2025. Transaminitis started after Enbrel. I will be monitoring liver enzymes closely while on Enbrel. Code(s): R74.01 - Elevation of levels of liver transaminase levels Category: Medical Plan: We will monitor liver function tests every 3 months (4) Greater trochanteric bursitis of both hips: Code(s): M70.61 - Trochanteric bursitis, right hip; M70.62 - Trochanteric bursitis, left hip Category: Medical Plan: PT ordered last visit (5) Fibromyalgia: Comment: Controlled on pregabalin prescribed by PCP Code(s): M79.7 - Fibromyalgia Category: Medical Plan: Management per PCP Orders: Orders Complete Blood Count Auto Diff 03/06/25 Z79.899 - Other vermin exterminator (current) drug therapy Alanine Aminotransferase 03/06/25 Z79.899 - Other vermin exterminator (current) drug therapy Aspartate Amino Transferase 03/06/25 Z79.899 - Other halfway (current) drug therapy Creatinine 03/06/25 Z79.89 - Other halfway (current) drug therapy C Reactive Protein 03/06/25 Z79.89 - Other halfway (current) drug therapy Erythrocyte Sedimentation Rate 03/06/25 Z79.899 - Other vermin exterminator (current) drug therapy Medications: Refilled etanercept (Enbrel SureClick) 50 mg subcut QWEEK 4 mL 2RF Coding Level of Care Code Est Pt Level 4 (97286) Complex EM visit Add On G2211 Diagnoses Rheumatoid arthritis M06.9 Rheumatoid factor presence: with rheumatoid factor Other halfway (current) drug therapy Z. Transaminitis R74.01 Greater trochanteric bursitis of both hips M70.61; M70.62 Fibromyalgia M79.7
[2025-03-06 13:15] VITALS: BP 140/80; PULSE 73; O2SAT 98; BMI 34.3
--- OUTSIDE RECORDS SUMMARY | 2025-03-06 18:06 | XMS_ITS | Clinical Summary ---
Author Organization [facility] Address [address] [place] [phone] Phone Care Team Providers Care Water Operator Name Role Phone Trina Ibarra Primary Care Provider [phone] Allergies Active Allergy Reactions Criticality Noted Date [...] Safety Answer Date Record ed Physical Abuse Unrecognized value 07/14/2024 Verbal Abuse Unrecognized value 07/14/2024 Comments Unknown Sex and Gender Information [...] Last Done Comments Breast Cancer Screening 1959 Colorectal Cancer Screening: Colonoscopy 1959 Cervical Cancer Screening: Pap Smear 1980 RSV Immunization Adult Patients (1 - Risk 50-74 years 1-dose series) 2009 Hepatitis C Screening 04/18/2022 Medicare Annual Wellness Visit 04/18/2022 Osteoporosis Screening (Bone Density Screening) 04/18/2022 Social Influencers of Health Screening 04/18/2022 Zoster Vaccines (2 of 2) 04/22/2023 02/25/2023 Pneumococcal Vaccine: 50+ Years (2 of 2 - PCV) 02/26/2024 02/25/2023 Depression Screening 05/16/2024 COVID-19 Vaccine (3 - season) 2025 08/21/2020, 07/25/2020 Influenza Vaccine (#1) 2025 Falls Risk Assessment 07/15/2025 07/15/2024 Cholesterol Screening (Lipid Panel) 04/28/2029 04/28/2024, 04/28/2024, [...] on patient's age to complete this topic Insurance MEDICARE [place] - [place] Advance Directives [...] currently active code status orders. Care Teams Water Operator Relationship Specialty Start Date End Date Trina Ibarra PA PCP - General 07/14/24
== END 2025-03-06 13:59 | disposition home or self-care (01) ==
LOC: HO.RHES 12:58
PROVIDERS: PCP Physician Assistant; Visit Provider Internal Medicine Rheumatology
DX: M06.9 Rheumatoid arthritis, unspecified (principal); Z79.899 Other long term (current) drug therapy; R74.01 Elevation of levels of liver transaminase levels; M70.61 Trochanteric bursitis, right hip; M70.62 Trochanteric bursitis, left hip; M79.7 Fibromyalgia
CPT/HCPCS: 99214; G2211

== ENCOUNTER 2025-03-06 12:57 | Outpatient (REF) | payer MEDICARE, MEDICAID, SELFPAY ==
[2025-03-06 18:26] LABS: MANUAL DIFF FLAG NO
[2025-03-06 18:47] LABS: Hematocrit 40.0 % (37.0-47.0); Hemoglobin 13.0 g/dl (12.0-16.0); Imm Gran Abs Auto 0.03 X10*3/uL (0.00-0.03); Imm Gran Pct Auto 0.3 % (0.0-0.4); Lymphocytes Absolute Auto 3.6 X10*3/uL (1.2-4.9); Mean Corpuscular HGB Conc 32.5 g/dl (31.0-35.0); Mean Corpuscular Hemoglobin 29.8 pg (27.0-33.0); Mean Corpuscular Volume 91.7 fL (80.0-98.0); NRBC Abs Auto 0.000 X10*3/uL (0.0-0.012); NRBC Pct Auto 0.0 /100WBC (0.0-0.2); Platelet Count 233 X10*3/uL (160-400); Red Blood Count 4.36 X10*6/uL (4.20-5.50); White Blood Count 9.9 X10*3/uL (4.8-10.8)
[2025-03-06 19:14] LABS: Alanine Aminotransferase 30 U/L (0-31); Aspartate Amino Transferase 25 U/L (5-31); Estimated Glomerular Filt Rate > 60
== END 2025-03-06 12:58 | disposition home or self-care (01) ==
LOC: HO.HKASLDS 12:57
PROVIDERS: PCP Physician Assistant; Visit Provider Internal Medicine Rheumatology
DX: M05.9 Rheumatoid arthritis with rheumatoid factor, unspecified (principal); M70.61 Trochanteric bursitis, right hip; M70.62 Trochanteric bursitis, left hip; M79.7 Fibromyalgia; R74.01 Elevation of levels of liver transaminase levels; Z79.899 Other long term (current) drug therapy
CPT/HCPCS: 36415; 82565; 84450; 84460; 85025; 85652; 86140; 99212

== ENCOUNTER 2025-04-15 08:33 | Outpatient (REF) | payer MEDICARE, MEDICAID, SELFPAY ==
--- OUTSIDE RECORDS SUMMARY | 2025-04-15 08:54 | XMS_ITS | Clinical Summary ---
Author Organization [facility] Address [address] [place] [phone] Phone Care Team Providers Care Teletype Technician Name Role Phone Trina Ibarra Primary Care Provider [phone] Allergies Active Allergy Reactions Criticality Noted Date [...] currently active code status orders. Care Teams Teletype Technician Relationship Specialty Start Date End Date Trina Ibarra PA PCP - General 07/14/24
[2025-04-15 09:48] LABS: Alanine Aminotransferase 29 U/L (0-31); Albumin Level 4.3 g/dL (3.5-5.0); Alkaline Phosphatase 65 U/L (39-117); Anion Gap 10 (12-20); Aspartate Amino Transferase 27 U/L (5-31); Blood Urea Nitrogen 18 mg/dL (9-16); Calcium 9.2 mg/dL (8.4-10.2); Carbon Dioxide 27 mmol/L (22-29); Chloride 111 mmol/L (96-108); Cholesterol 179 mg/dL (<200); Estimated Glomerular Filt Rate > 60; HDL Cholesterol 38 mg/dL (>40); Potassium 4.7 mmol/L (3.3-5.1); Sodium 143 mmol/L (135-145); Total Protein 7.6 g/dL (6.5-8.0); Triglycerides 130 mg/dL (<150)
[2025-04-15 10:12] LABS: Folate 14.3 ng/mL (> or = 4.0); Vitamin B12 787 pg/mL (200-900)
== END 2025-04-15 08:34 | disposition home or self-care (01) ==
LOC: HO.LAB 08:33
PROVIDERS: PCP Physician Assistant
DX: Z00.00 Encounter for general adult medical examination without abnormal findings (principal); E78.00 Pure hypercholesterolemia, unspecified; R74.01 Elevation of levels of liver transaminase levels; Z13.29 Encounter for screening for other suspected endocrine disorder; Z13.21 Encounter for screening for nutritional disorder; Z13.1 Encounter for screening for diabetes mellitus
CPT/HCPCS: 36415; 80053; 80061; 82306; 82607; 82746; 83036; 84443

== ENCOUNTER 2025-04-22 14:48 | Outpatient (AMB) | payer MEDICARE, MEDICAID, SELFPAY ==
[2025-04-22 15:06] VITALS: BP 130/72; PULSE 68; O2SAT 98; BMI 34.0
--- NOTE | 2025-04-22 15:06 | MHC.PC.OV ---
Vital Signs 04/22/25 15:06 Height 5 ft 2 in Weight 186 lb BMI 34.0 BP 130/72 Blood Pressure Location Lt brachial Position Sitting Pulse 68 Pulse Source Pulse Oximeter Pulse Oximetry (%) 98 Oxygen Delivery Method Room Air Intake Visit Reasons: Transfer care from [facility] General Dentist Required: Yes General Dentist Language: Clinical Research Monitor Name: ID #[id number] Allergies IV contrast Allergy (Mild, Uncoded 04/22/25 15:36) acidosis Medication List - Last Reconciled 04/22/25 by Acosta Jones PA-C albuterol sulfate 1.25 mg (3 mL) inhalation QID PRN etanercept (Enbrel SureClick) 50 mg subcut QWEEK lidocaine 5% 1 patch topical DAILY lisinopril 20 mg PO DAILY mecobalamin (vitamin B12) 1,000 mcg PO DAILY meloxicam 15 mg PO DAILY [Nebulizer As directed] omeprazole 20 mg PO DAILY simvastatin 5 mg PO DAILY Tobacco use date assessed: 01/18/25 Fall risk assessment: No Falls in past year Last assessed Fall Risk: 04/22/25 Dental Screening Dental Screen Date: 01/18/25 HPI Transfer care from [facility] HPI Details Patient is a 64-year-old female here today for a transfer of care visit. This is my 1st time meeting this Kyrgyz-speaking only patient. Patient has a past medical history significant for rheumatoid arthritis, impaired glucose metabolism, hypertension, legally blind, GERD and hyperlipidemia. Concern--> she reports she has been trying to treat a toenail fungus for quite some time now, has not used any [id number] topical treatments. She brings in a cell phone photo of her toenail that appears opaque and broken. .. Rheumatoid arthritis: Patient managed by loan associate for her pain. She continues on disease modifying drug Enbrel. She reports having low back pain that radiates down her left lower extremity she is concerned about sciatica. She is interested in trying muscle relaxer to help her with her pain. .. Hypertension: Blood pressure well managed with current dose of lisinopril. .. Hyperlipidemia: Most recent lipid panel showing appropriate total cholesterol. She continues on simvastatin 5 mg. She will work on lifestyle and dietary modifications. .. Asthma: Patient reports her asthma is fairly well controlled, she is interested in getting a nebulizer to help her with asthma exacerbations at home. Laboratory Tests 03/06/25 04/15/25 14:11 08:54 RBC 4.36 Random Glucose 122 H Hemoglobin A1c % 5.8 Cholesterol 179 25-OH Vitamin D To rodrigue 22.6 L TSH 2.78 ON LICENSE OF [facility] Medical History Chronic GERD Legally blind Asthma Rheumatoid arthritis Surgical History Hx of cholecystectomy H/O knee surgery Family History Mother Cardiovascular disease Father Pulmonary emphysema Social History Household Members: Spouse Both parents involved: No Caregiver staying overnight: No Housing: Apartment Are you a primary care tech to a significant other at home: No Do you presently have visiting nurse or other home services: No Alcohol intake: never Patient Tobacco Use Status: Never used Tobacco Tobacco use type: Cigarette e-Cigarette/Vaping Use: Never Used Second Hand Smoke Exposure: No service: No Current occupational status: retired Cognitive needs: No Hearing needs: No Vision needs: No Questionnaire Thrive Questionnaire Date Thrive assessed: 01/11/25 I am a: Patient What is your living situation today?: I have a steady place to live Within the past 12 months, did the food you bought not last and you didn't have the money to get more?: Never true Within the past 12 months, did you worry whether your food would run out before you got money to buy more?: Never true Do you have trouble paying for medicines?: No Do you have trouble getting transportation to medical appointments?: No Do you have trouble paying your heating and electricity bill?: No Do you have trouble taking care of your child, family member or friend?: No Do you have trouble with day-to-day activities such as bathing, preparing meals, shopping, managing finances, etc.?: Yes Are you currently unemployed and looking for a job?: No Are you interested in more education?: No Please select the resources that you would like help with: None Currently or been in a relationship where the following occur: No concerns reported THRIVE Score: 0 AUGUSTINA-7 AMB Questionnaire AUGUSTINA-7 Date AUGUSTINA - 7 assessed: 01/18/25 Source: Developed by Drs. Micah Macedo, Chery Lane, Jatin Gonzalez and colleagues, with an educational aleah from [employer]. Review of Systems Const Denies headache(s) Eyes Denies loss of vision ENT Denies vertigo, Denies dizziness, Denies headache(s) and Denies sore throat Card Denies chest pain, Denies leg edema and Denies lightheadedness Resp Denies cough, Denies hemoptysis and Denies wheezing GI Denies abdominal pain, Denies melena, Denies constipation, Denies diarrhea and Denies vomiting Denies urinary frequency, Denies dysuria and Denies urinary urgency Musc Denies arthralgias, Denies joint swelling, Denies numbness and Denies tingling Neuro Denies Abnormal speech present, Denies behavioral changes, Denies vertigo, Denies dizziness, Denies headache(s), Denies loss of vision, Denies memory loss, Denies numbness and Denies tingling Psych Denies anxiety, Denies behavioral changes, Denies depression, Denies memory loss and Denies panic attacks Gregg/Lymph Denies easy bleeding and Denies easy bruising Aller/Immun Denies wheezing Physical exam (Primary Care) Vital Signs: Last Vital Signs Pulse 68 04/22/25 15:06 BP 130/72 04/22/25 15:06 Pulse Ox 98 04/22/25 15:06 Oxygen Delivery Method Room Air 04/22/25 15:06 BMI result Body Mass Index 34.0 Tobacco/Smoking Status: Tobacco use Status Tobacco use date assessed 01/18/25 04/22/25 15:13 Patient Tobacco Use Status Never used Tobacco 04/22/25 15:13 Tobacco use type Cigarette 04/22/25 15:13 e-Cigarette/Vaping Use Never Used 04/22/25 15:13 Thrive Assessment: Date of Thrive Assessment Date Thrive assessed 01/11/25 04/22/25 15:13 Currently or been in a relationship where the following occur: No concerns reported Const General: healthy appearing, no acute distress, alert and awake Nutritional Appearance: well nourished Orientation/consciousness: oriented to person, oriented to place and oriented to time HENMT Ears: TM's normal bilaterally General nose exam: Normal nasal mucous membranes and turbinates present Eyes Conjunctivae: conjunctivae normal Sclerae: sclerae normal Pupils: Equal, round and reactive pupils present Neck Neck: Yes no lymphadenopathy and Yes no JVD Thyroid: Thyroid normal Carotids: no bruits Resp Effort & Inspection: normal respiratory effort and not tachypneic Auscultation: no crackles, no rales, no rhonchi and no wheezes Cardio Rate: regular rate Rhythm: regular rhythm Heart sounds: no murmurs and normal S1 and S2 GI Palpation (GI): Soft to palpation, nontender, no hepatomegaly and no splenomegaly Auscultation: normal bowel sounds Skin General skin exam: no rashes or lesions noted and dry skin Neuro General: oriented to person, oriented to place and oriented to time Cranial nerves: Yes Equal, round and reactive pupils present Speech: No Abnormal speech present Gait exam (Neuro): Normal gait present Motor exam (neuro): no tremor noted Extrem Right upper extremity: full ROM Left upper extremity: full ROM Right lower extremity: full ROM; no edema Left lower extremity: full ROM; no edema Psych Mental Status: mental status grossly normal Speech and movement: Normal speech and movement present Affect: normal affect Attitude: cooperative Thought process: Normal thought process present Coding Level of Care Code Est Pt Level 4 (60113) Diagnoses Primary hypertension I10 Hypertension type: primary hypertension Hypercholesteremia E78.00 Rheumatoid arthritis involving right foot with positive rheumatoid factor M05.771 Laterality: right Rheumatoid factor presence: with rheumatoid factor Rheumatoid arthritis location: foot Mild intermittent asthma without complication J45.20 Asthma complication type: uncomplicated Asthma persistence: intermittent Asthma severity: mild Vitamin D deficiency E55.9 Tinea pedis of right foot B35.3 Laterality: right Jeaneth onychomycosis B37.2 Sciatica of right side M54.31 Assessment & Plan Assessment & Plan (1) Hypertension: Code(s): I10 - Essential (primary) hypertension Category: Medical Qualifiers: Hypertension type: primary hypertension Qualified Code(s): I10 - Essential (primary) hypertension Plan: Continue current dose of lisinopril with goal blood pressure to remain below 130/80. (2) Hypercholesteremia: Code(s): E78.00 - Pure hypercholesterolemia, unspecified Category: Medical Plan: Patient will continue low-dose statin therapy, goal LDL is to remain below 130 (3) Rheumatoid arthritis: Comment: Inflammatory arthritis has improved on Enbrel. She has had mild transaminitis on Enbrel. It has resolved on most recent labs from this month. If she continues to have transaminitis on future labs, I will need to consider changing Enbrel to another agent. Patient is open to considering TNF inhibitor Remicade as she has had great response on TNF inhibitors. Rheumatology history: +CPP >250, rheumatoid factor. Erosive inflammatory arthritis involving left foot 1st distal phalanx. MTX 11/2020-02/2022 patient discontinued due to hair loss. Partial response to sulfasalazine and hydroxychloroquine 04/2022. On Humira 2020-07/2024 insurance denied medication. Enbrel 09/2024- Code(s): M06.9 - Rheumatoid arthritis, unspecified Category: Medical Qualifiers: Laterality: right Rheumatoid factor presence: with rheumatoid factor Rheumatoid arthritis location: foot Qualified Code(s): M05.771 - Rheumatoid arthritis with rheumatoid factor of right ankle and foot without organ or systems involvement Plan: Patient followed by rheumatology, continues on disease modifying drug that has been helpful to reduce her joint pain and stiffness. She still reports pretty significant pain involving her low back in his interested in trying muscle relaxer (4) Asthma: Code(s): J45.909 - Unspecified asthma, uncomplicated Category: Medical Qualifiers: Asthma complication type: uncomplicated Asthma persistence: intermittent Asthma severity: mild Qualified Code(s): J45.20 - Mild intermittent asthma, uncomplicated Plan: Patient has a long history of asthma, she is interested in having a nebulizer to help her with breathing treatments at home when she her asthma exacerbates. (5) Vitamin D deficiency: Code(s): E55.9 - Vitamin D deficiency, unspecified Category: Medical Plan: Will supply patient with vitamin-D supplementation (6) Tinea pedis: Code(s): B35.3 - Tinea pedis Category: Medical Qualifiers: Laterality: right Qualified Code(s): B35.3 - Tinea pedis Plan: For the onychomycosis, a topical antifungal cream will be prescribed for application to the nail and cuticle. (7) Jeaneth onychomycosis: Code(s): B37.2 - Candidiasis of skin and nail Category: Medical Plan: As above (8) Sciatica of right side: Code(s): M54.31 - Sciatica, right side Category: Medical Plan: To manage the right-sided sciatica, after discussing that gabapentin was ineffective in the past, a muscle relaxer will be prescribed to see if it helps with the pain. The patient declined a refill of lidocaine 5% patches and further physical therapy at this time. Orders: Orders Lipid Panel 04/22/25 E78.00 - Pure hypercholesterolemia, unspecified Microalbumin, Random (w Creat) 04/22/25 I10 - Essential (primary) hypertension Complete Blood Count no Diff 04/22/25 I10 - Essential (primary) hypertension Comprehensive [place]. Panel Fast 04/22/25 I10 - Essential (primary) hypertension Vitamin D 25-OH Total 04/22/25 E55.9 - Vitamin D deficiency, unspecified Medications: New clotrimazole 1% 1 appl topical DAILY 45 grams 1RF 4 weeks B37.2 - Candidiasis of skin and nail cholecalciferol (vitamin D3) 50 mcg PO DAILY 90 caps 2RF 90 days E55.9 - Vitamin D deficiency, unspecified cyclobenzaprine 10 mg PO BEDTIME 15 tabs 1RF 15 days M54.31 - Sciatica, right side Changed From lidocaine 5% leave on most painful area for up to 12 hrs 1 patch topical DAILY 30 ea 1RF M70.61 - Trochanteric bursitis, right hip, M70.62 - Trochanteric bursitis, left hip To lidocaine 5% leave on most painful area for up to 12 hrs 1 patch topical DAILY 30 ea 1RF 30 days M70.61 - Trochanteric bursitis, right hip, M70.62 - Trochanteric bursitis, left hip Refilled [Nebulizer] As directed 1 ea 0RF J45.909 - Unspecified asthma, uncomplicated
== END 2025-04-22 16:02 | disposition home or self-care (01) ==
LOC: HO.HMCH 14:48
PROVIDERS: PCP Physician Assistant; Visit Provider Physician Assistant
DX: I10 Essential (primary) hypertension (principal); E78.00 Pure hypercholesterolemia, unspecified; M05.771 Rheumatoid arthritis with rheumatoid factor of right ankle and foot without organ or systems involvement; J45.20 Mild intermittent asthma, uncomplicated; E55.9 Vitamin D deficiency, unspecified; B35.3 Tinea pedis; B37.2 Candidiasis of skin and nail; M54.31 Sciatica, right side

== ENCOUNTER → 2025-04-22 14:48 | Outpatient (BNVA) | payer MEDICARE, MEDICAID, SELFPAY | PROVIDERS: PCP Physician Assistant; Visit Provider Physician Assistant | DX: B35.3 Tinea pedis (principal); I10 Essential (primary) hypertension; M05.771 Rheumatoid arthritis with rheumatoid factor of right ankle and foot without organ or systems involvement; J45.20 Mild intermittent asthma, uncomplicated; E55.9 Vitamin D deficiency, unspecified; B37.2 Candidiasis of skin and nail; M54.31 Sciatica, right side | CPT/HCPCS: 99212 ==